=== PATIENT | female | born 1970 | race Caucasian/White ===

== ENCOUNTER → 2017-07-25 13:03 | Outpatient (CLI) | payer OTHER, SELFPAY ==
--- NOTE | 2017-07-25 13:06 | HPBI_ITS ---
MAMMOGRAPHY - BILATERAL DIAGNOSTIC REASON FOR EXAM: Female, 47 years old. Patient complains a right breast lump x1 week. History right breast cyst removed at age 39. PERTINENT HISTORY: Non-contributory. TECHNIQUE: Digital Full Field Breast examination. Mediolateral oblique (MLO) and craniocaudad (CC) views of both breasts were obtained. CAD: Full Field Digital Mammography with Computer Added Detection was performed. COMPARISON: 02/01/2016 through 01/29/2015 mammograms. FINDINGS: Breast Composition: Extremely dense Right breast lower outer quadrant rounded smooth margin incompletely seen asymmetric density is noted, marked by radiopaque triangle by the Habitat Biologist. Tomosynthesis imaging appears to confirm rounded density without associated calcifications which may represent a cyst or mass suspicious for neoplasm. Recommended right breast targeted ultrasound for further evaluation. No new architectural distortion, abnormal microcalcification cluster, dominant mass, adenopathy, skin thickening or nipple retraction is identified. Benign-appearing calcifications seen. HPBI/DIAG MAMM W/CAD, BILAT IMPRESSION: Right breast lower outer quadrant asymmetric density, marked by radiopaque marker corresponding to patient's complaint of right breast lump for one week, cannot exclude neoplasm versus cyst. Further right breast targeted ultrasonographic evaluation recommended, as described above. ASSESSMENT CATEGORY: BIRADS Category 0: Incomplete. Need additional imaging evaluation. A letter regarding these results will be sent to the patient by the facility within 30 days. FOLLOW UP RECOMMENDATION: Ultrasound Recommended. (I) Approximately 10% of breast cancers Are Not detected by mammography. A normal mammogram should not delay biopsy of a clinically suspicious abnormality. Electronically Signed: Bruce Norton, at 18:09 EDT Tel , Service support ,
--- NOTE | 2017-07-25 14:01 | US_ITS ---
STUDY: ULTRASOUND BREAST - RIGHT REASON FOR EXAM: Female, 47 years old. Right breast lump x1 week for a patient is documented by genetic technologist. History right breast cyst removed at age 39. TECHNIQUE: Axial and longitudinal images of the RIGHT breast were performed with a high resolution ultrasound transducer. COMPARISON: Right breast ultrasound 01/29/2015. Correlation mammograms 07/25/2017 through 01/29/2015. FINDINGS: RIGHT Breast: There are 2 hypoechoic lesions located in the right breast lower outer quadrant in the area of clinical concern where patient describes a lump x1 week. An oval wider than tall hyperechoic appearing simple cyst is approximately 1.9 x 2.3 x 1.6 cm in the approximate 7:30 position approximately 6 cm from the nipple which shows minimal internal color Doppler signal which may be artifact. Second adjacent lesion measures 2.0 x 3.2 x 1.2 cm and has similar benign-appearing cystic characteristics. Clock notation: 7:30 o'clock position. Distance from nipple: 6 cm. Posterior Enhancement: Both Posterior Shadowing: Neither Margins: Smooth for both Echogenicity: Anechoic for both consistent with simple cysts US/Breast Limited Unilateral IMPRESSION: Probably benign appearing cystic structures right breast 7:30 o'clock 6 cm from nipple position corresponding the patient's symptoms described above. Recommend right breast ultrasound in 6 months for short-term follow-up of probably benign findings. Benign ultrasound and mammographic results should not deter biopsy or biopsies of a palpable lesion which if present should be followed on clinical grounds and biopsy performed if clinically persistent for 3 months or increasing size to exclude neoplasm. ASSESSMENT CATEGORY: BIRADS Category 2: Benign. A letter regarding these results will be sent to the patient by the facility within 30 days. Electronically Signed: Bruce Norton, at 20:06 EDT Tel , Service support ,
== END ==
PROVIDERS: Family Provider Internal Medicine; PCP Internal Medicine; Visit Provider Obstetrics & Gynecology
DX: N63.0 Unspecified lump in unspecified breast (principal)
CPT/HCPCS: 76642; 77062; 77066; G0279

== ENCOUNTER → 2020-02-17 | Outpatient (CLI) | payer OTHER, SELFPAY ==
--- NOTE | 2020-02-17 16:24 | BI_ITS ---
MAMMOGRAPHY - BILATERAL SCREENING REASON FOR EXAM: Female, 49 years old. Routine annual screening examination. PERTINENT HISTORY: Non-contributory. TECHNIQUE: Digital bilateral breast jayne (3D mammographic acquisition) in the CC and MLO projections. 2-D mediolateral oblique (MLO) and craniocaudad (CC) views of both breasts were obtained. CAD: Full Field Digital Mammography with Computer Added Detection was performed. COMPARISON: Comparison is made with prior study dated 07/25/2017. FINDINGS: Breast Composition: The breasts are extremely dense, which lowers the sensitivity of mammography. There are no dominant masses or suspicious calcifications. Surgical clips are seen in the anterior upper slightly medial retroareolar region. The previously seen well-defined nodule in the lower outer quadrant of the right breast is not seen at this time. No other significant abnormalities are identified. BI/SCREEN MAMM (CAD) W/JAYNE BILAT IMPRESSION: Negative screening mammogram. Yearly followup mammogram recommended. (A) ASSESSMENT CATEGORY: BIRADS Category 2: Benign. A letter regarding these results will be sent to the patient by the facility within 30 days. Approximately 10% of breast cancers are not detected by mammography. A normal mammogram should not delay biopsy of a clinically suspicious abnormality. [id number] Electronically Signed: Mario Walsh, at 8:45 EDT , Service support ,
== END | disposition home or self-care (01) ==
LOC: OPBI 16:23
PROVIDERS: PCP Internal Medicine; Referring Provider Nurse Practitioner Primary Care; Visit Provider Nurse Practitioner Primary Care
DX: Z12.31 Encounter for screening mammogram for malignant neoplasm of breast (principal)
CPT/HCPCS: 77063; 77067

== ENCOUNTER → 2022-10-14 | Outpatient (CLI) | payer OTHER, SELFPAY ==
--- NOTE | 2022-10-14 16:23 | RAD_ITS ---
STUDY: X-RAY CHEST REASON FOR EXAM: Female, 52 years old. hx of latent tb TECHNIQUE: Frontal and lateral views of the chest. COMPARISON: None. FINDINGS: The lungs are clear and expanded. There is no demonstrated pleural abnormality. Normal size heart. Normal mediastinum and freida. Normal visualized pulmonary arteries. Normal visualized aortic arch and descending thoracic aorta. Normal visualized thoracic spine. Normal visualized ribs, clavicles, and shoulders. There is no demonstrated abnormality of the visualized soft tissue structures of the upper abdomen. RAD/Chest PA and Lateral IMPRESSION: Normal x-ray examination of the chest. Electronically Signed: Amari Silva MD at 21:52 EDT ,
[2022-10-14 17:54] LABS: Absolute Lymphocyte Count 2.59 X10^3/uL (0.83-4.51); Basophil# 0.05 X10^3/uL; Basophil% 0.8 % (0-1); Eosinophil# 0.12 X10^3/uL; Eosinophils% 1.9 % (0-5); Hematocrit 40.2 % (37-47); Hemoglobin 12.8 g/dL (12.0-15.0); Lymphocyte # 2.59 X10^3/ul (0.83-4.51); Lymphocyte % 41.2 % (19-41); Mean Corp Hgb Conc 31.8 g/dL (32-36); Mean Corpuscular Hgb 27.7 pg (27.0-32.0); Mean Platelet Vol. 9.1 fl (6.2-12.0); Monocyte# 0.55 X10^3/uL; Monocyte% 8.7 % (0-10); NRBC Flagged by Analyzer 0 % (0-5); Neutrophil # 2.96 X10^3/uL (2.7-7.7); Neutrophil % 47.1 % (47-70); Platelet Count 368 K/mm3 (150-450); RBC Distribution Width CV 14.2 % (11.6-14.6); RBC Distribution Width SD 45.2 fl (35.1-43.9); Red Blood Count 4.62 M/mm3 (4.2-5.4); White Blood Count 6.3 K/mm3 (4.4-11.0)
[2022-10-14 18:02] LABS: Erythrocyte Sedimentation Rate 9 mm/hr (0-30)
[2022-10-14 18:08] LABS: Vitamin B12 1782 pg/mL (211-911); Vitamin D,25 Hydroxy 54.6 ng/mL
[2022-10-14 18:20] LABS: AST(SGOT) 22 U/L (15-37); Alanine Aminotransfer ALT/SGPT 22 U/L (13-56); Albumin, Serum 3.8 g/dL (3.2-5.0); Alkaline Phosphatase 68 U/L (45-117); Anion Gap 6 (5-15); BUN 14 mg/dL (7-18); BUN/Creat Ratio 23.9 RATIO (10-20); CRP 7.09 mg/L (0.0-3.0); Calcium,Total 8.6 mg/dL (8.5-10.1); Chloride 103 mmol/L (98-107); Creatinine, Serum 0.59 mg/dL (0.55-1.02); EST Glomerular Filtration Rate 114 mL/min (>60); Est Glom Filt Rate - Afr Amer 138 mL/min (>60); Globulin 3.7 g/dL (2.2-4.2); Glucose 100 mg/dL (74-106); Potassium 3.7 mmol/L (3.5-5.1); Protein, Total 7.5 g/dL (6.4-8.2); Rheumatoid Factor < 10.0 IU/mL (<15); Sodium Level 137 mmol/L (136-145); Thyroid Stim Hormone (TSH) 1.32 uIU/mL (0.358-3.74)
[2022-10-17 13:07] LABS: ANTINUCLEAR ANTIBODIES DIRECT Positive (Negative)
== END | disposition home or self-care (01) ==
PROVIDERS: PCP Family Medicine; Referring Provider Family Medicine; Visit Provider Family Medicine
DX: M79.10 Myalgia, unspecified site (principal); Z86.15 Personal history of latent tuberculosis infection
CPT/HCPCS: 36415; 71046; 80053; 82306; 82607; 84443; 85025; 85652; 86038; 86140; 86431

== ENCOUNTER → 2022-10-26 | Outpatient (CLI) | payer OTHER, SELFPAY ==
--- NOTE | 2022-10-26 17:49 | CT_ITS ---
STUDY: CT MAXILLOFACIAL SINUSES REASON FOR EXAM: Female, 52 years old. CHRONIC SINUSITIS RADIATION DOSAGE (If Supplied By Facility): CTDIvol = ( 33.06 ) mGy, DLP = ( 796.66 ) mGycm TECHNIQUE: The patient was scanned in a multi detector CT scanner. High resolution axial imaging was performed without the administration of intravenous contrast material. Sagittal and coronal images were reconstructed. Individualized dose optimization techniques were used for this CT. COMPARISON: None. FINDINGS: FRONTAL SINUSES: Normal aeration, without mucosal inflammatory disease. ETHMOIDAL SINUSES: Mild opacification MAXILLARY SINUSES: Mucosal thickening measuring 0.4 cm on the right and 0.6 cm on the left SPHENOIDAL SINUSES: Mucosal thickening measuring 0.8 cm. There is narrowing of the ostium, infundibulum, and hiatus semilunaris on the right. There is narrowing of the ostium, infundibulum, and hiatus semilunaris on the left. There is a lori bullosa of the right middle turbinate. There are paradoxical curvature of the bilateral middle turbinates. There is hypertrophy of the bilateral inferior nasal turbinates. There is sinuous deviation of the nasal septum. There is narrowing of the bilateral nasal airways. The visualized osseous structures are normal. The visualized bilateral orbital contents are normal. CT/Sinus/Facial Bone IMPRESSION: Sinusitis with mucosal thickening of the maxillary, ethmoid, and sphenoid sinuses. Narrowing of the ostiomeatal units. Nasal septal deviation. Mucosal hypertrophy of the turbinates narrowing the nasal air passageway. Electronically Signed: Cy Hansen MD at 23:35 EDT ,
== END | disposition home or self-care (01) ==
LOC: CT 17:45
PROVIDERS: PCP Family Medicine; Referring Provider Otolaryngology; Visit Provider Otolaryngology
DX: J32.8 Other chronic sinusitis (principal)
CPT/HCPCS: 70486

== ENCOUNTER → 2023-05-26 | Outpatient (CLI) | payer OTHER, SELFPAY ==
--- OUTSIDE RECORDS SUMMARY | 2023-05-26 16:08 | XMS RPT_ITS | CCD ---
Author Name Unknown Address [address] [facility] [address] [place] [address] Organization [facility] Care Team Providers Care Wildlife Manager Name Role Phone Curtis Fofana Admitting Unavailable Curtis Fofana Attending Unavailable Anya Serrato MD Primary Care Provider Anya Serrato MD Primary Care Provider [phone] Anya Serrato MD Primary Care Provider [phone] Allergies Allergy Classification Reported Allergen(s) Allergy Type Date of Onset Reaction(s) Facility (4 sources) Adhesive agent Drug Allergy [facility] Work Phone: (14 sources) Promethazine Drug Allergy [address] [place] [address] Work Phone: (14 sources) Homeopathic Products Propensity to adverse reactions [address] [place] [address] Work Phone: (10 sources) Adhesive agent Drug Allergy [address] [place] [address] Work Phone: Medications Current Medications Medication Drug Class(es) Dates Sig (Normalized) Sig (Original) amoxicillin 875 mg oral tablet (1 source) Penicillin-class Antibacterial Start: 02-04-2022 End: 02-11-2022 take 1 tablet by mouth twice daily amoxicillin (AMOXIL) 875 mg tablet Take 1 tablet by mouth twice daily for 7 days. 14 tablet 0 02/04/2022 02/11/2022 Active Completed/Discontinued Medications Medication Drug Class(es) Dates Sig (Normalized) Sig (Original) balsalazide disodium 750 mg oral capsule (15 sources) Aminosalicylate Start: 01-14-2022 take 3 capsules by mouth three times daily balsalazide (COLAZAL) 750 mg capsule Indications: Ulcerative pancolitis without complication (HCC) Take 3 capsules by mouth three times daily. 270 capsule 11 01/14/2022 Active Problems Active Problems Problem Classification Problem Date Documented Da te Episodic/Chronic Headache; including migraine (2 sources) Migraine; Translations: [Migraine, unspecified, not intractable, without status migrainosus] Chronic Miscellaneous mental health disorders (20 sources) Chronic insomnia; Translations: [Psychophysiologic insomnia] Onset: 08-20-2014 Chronic Mood disorders (15 sources) Recurrent major depressive episodes, moderate ; Translations: [Major depressive disorder, recurrent, moderate] Onset: 12-01-2020 Chronic Nutritional deficiencies (1 source) Cobalamin deficiency; Translations: [Deficiency of other specified B group vitamins] Episodic Other circulatory disease (15 sources) Thrombotic microangiopathy; 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 Other endocrine disorders (14 sources) Disorder of anterior pituitary; Translations: [Other disorders of pituitary gland] Onset: 07-31-2008 09-29-2008 Chronic Other screening for suspected conditions (not mental disorders or infectious disease) (19 sources) Coag./bleeding tests abnormal; Translations: [Abnormal coagulation profile] 07-01-2009 Episodic Other upper respiratory infections (1 source) Acute maxillary sinusitis; Translations: [Acute maxillary sinusitis, unspecified] Episodic Regional enteritis and ulcerative colitis (15 sources) Ulcerative pancolitis; Translations: [Ulcerative (chronic) pancolitis without complications] Onset: 03-20-2015 03-20-2015 Chronic Residual codes; unclassified (14 sources) Periodic limb movement disorder; Translations: [Periodic limb movement disorder] Onset: 08-20-2014 08-20-2014 Chronic Residual codes; unclassified (1 source) Insomnia; Translations: [Insomnia, unspecified] Episodic Past or Other Problems Problem Classification Problem Date Documented Da te Episodic/Chronic Headache; including migraine (14 sources) Headache; Translations: [Headache] Onset: 09-29-2008 09-29-2008 Episodic Other connective tissue disease (14 sources) Impingement syndrome of right shoulder region; Translations: [Impingement syndrome of right shoulder] Onset: 10-28-2014 10-28-2014 Episodic Other connective tissue disease (14 sources) Impingement syndrome of left shoulder region; Translations: [Impingement syndrome of left shoulder] Onset: 10-28-2014 10-28-2014 Episodic Results Test Name Value Interpretation Reference Range Facil ity Vital Signs Date Time Vital Sign Value Performing Clinician Faisal austin 02-04-2022 11:53-0400 Body temperature 97.7 [degF] Elliott Llamas COMPLIANCE MONITOR.WOOL WASHER Work Phone: [facility] 02-04-2022 11:53-0400 Body weight 68.58 kg Elliott Llamas COMPLIANCE MONITOR.WOOL WASHER Work Phone: [facility] 02-04-2022 11:53-0400 Diastolic blood pressure 66 mm[Hg] Elliott Llamas COMPLIANCE MONITOR.WOOL WASHER Work Phone: [facility] 02-04-2022 11:53-0400 Heart rate 82 /min Elliott Llamas COMPLIANCE MONITOR.WOOL WASHER Work Phone: [facility] 02-04-2022 11:53-0400 Respiratory rate 18 /min Elliott Llamas COMPLIANCE MONITOR.WOOL WASHER Work Phone: [facility] 02-04-2022 11:53-0400 SaO2% (BldA) [Mass fraction] 95 % Elliott Llamas COMPLIANCE MONITOR.WOOL WASHER Work Phone: [facility] 02-04-2022 11:53-0400 Systolic blood pressure 116 mm[Hg] Elliott Llamas COMPLIANCE MONITOR.WOOL WASHER Work Phone: [facility] Encounters Encounter Date Encounter Type Care Provider Facility Start: 03-01-2023 ambulatory Anya Pierre Work Phone: [facility] Start: 06-06-2022 Refill Lilly Rice COMPLIANCE MONITOR .WOOL WASHER Work Phone: [facility] [place] Procedures Date Procedure Procedure Detail Performing Clinician Start: 08-21-2020 Lipid 1996 panel - S navjot or Plasma Anya Serrato MD Work Phone: Start: 02-17-2020 Mammography Vicky Booth PSYD Work Phone: Start: 10-08-2018 Colonoscopy Vicky Booth PSYD Work Phone: Plan of Treatment Date Care Activity Detail Author Start: 10-08-2028 Colonoscopy COLONOSCOPY [facility] Start: 10-08-2028 COLORECTAL CANCER SCREENING COLORECTAL CANCER SCREENING [facility] Start: 08-21-2025 Lipid 1996 panel - Serum or Plasma Lipid Screening [facility] Start: 08-21-2025 LIPID SCREEN LIPID SCREEN [facility] Start: 08-22-2023 DIABETES SCREEN DIABETES SCREEN [facility] Start: 08-22-2023 Diabetes Screening Diabetes Screening [facility] Start: 12-30-2022 Influenza vaccination [facility] Start: 12-30-2021 Influenza vaccination [facility] Start: 10-06-2021 End: 12-06-2021 CBC W Auto Differential panel - Blood CBC + DIFF Lab Routine Annual physical exam Abnormal coagulation profile Expected: 10/06/2021, Expires: 12/06/2021 [facility] Work Phone: Immunizations Immunization Date Immunization Notes Care Provider Amisha shaffer 05-04-2018 influenza, injectabl e, quadrivalent, contains preservative Vicky Booth PSYD Work Phone: [facility] 05-04-2018 influenza virus vaccine, unspecified formulation Anya Serrato MD Work Phone: [facility] 03-22-2016 influenza, injectabl e, quadrivalent, contains preservative Vicky Booth PSYD Work Phone: [facility] 01-29-2015 influenza, seasonal, injectable Vicky Booth PSYD Work Phone: [facility] 02-20-2009 influenza virus vaccine, live, attenuated, for intranasal use Vicky Booth PSYD Work Phone: [facility] Work Phone: 01-15-2007 hepatitis B vaccine, adult dosage Vicky Booth PSYD Work Phone: [facility] Work Phone: 01-15-2007 hepatitis B vaccine, unspecified formulation Anya Serrato MD Work Phone: [facility] 12-18-2006 hepatitis B vaccine, adult dosage Vicky Booth PSYD Work Phone: [facility] Work Phone: 12-18-2006 tetanus toxoid, redu swapna diphtheria toxoid, and acellular pertussis vaccine, adsorbed Vicky Booth PSYD Work Phone: [facility] Work Phone: Payers Date Payer Category Payer Unknown MMO MMO [employer] [id number] 2018-Present [phone] [address] [place] [address] PPO [id number] 2018 Unknown [id number] Unknown [id number] Social History Date Type Detail Facility Start: 05-03-2012 Tobacco smoking stat [facility] Never smoked tobacco [facility] Work Phone: Start: 01-20-2021 End: 02-04-2022 Alcohol intake Current drinker of alcohol (finding) [facility] Start: 10-19-2020 History SDOH Alcohol Frequency 2 [facility] Start: 10-19-2020 History SDOH Alcohol Std Drinks 1 [facility] Start: 10-19-2020 History SDOH Social Connections Phone 4 [facility] Start: 10-19-2020 End: 10-06-2021 History SDOH Social Connections Yazidi 3 [facility] Start: 10-19-2020 History SDOH Social Connections Living 8 [facility] Start: 10-19-2020 History SDOH Financial 5 [facility] Start: 10-19-2020 Education 12 [facility] Start: 1970 Sex Assigned At Female [facility] Start: 08-30-2021 End: 02-04-2022 Exposure to SARS-CoV-2 (event) Not sure [facility] Start: 05-03-2012 Tobacco use and exposure Smoke less tobacco non-user [facility] Start: 05-26-2022 End: 07-20-2022 History of Social function [facility] Start: 05-26-2022 End: 07-20-2022 Social connection and isolation panel [facility] In a typical week, h ow many times do you talk on the telephone with family, friends, or neighbors? Patient refused [facility] Are you now , , , , never or living with a partner? Refused [facility] How often to you hav e a drink containing alcohol? Monthly or less [facility] How many standard dr inks containing alcohol do you have on a typical day? 1 or 2 [facility] How often do you hav e 6 or more drinks on 1 occasion? Never [facility] Do you feel stress - tense, restless, nervous, or anxious, or unable to sleep at night because your mind is troubled all the time - these days [OSQ] Only a little [facility] (I/We) worried ludmila er (my/our) food would run out before (I/we) got money to buy more. DK or Refused [facility] In the past 12 month s, was there a time when you were not able to pay the mortgage or rent on time? No [facility] Start: 03-31-2021 Gender identity Identifies as female gender (finding) [facility] Clinical Notes 01-12-2012 to 03-01-2023 Telephone Encounter - Taryn Boothe LPN - 06/07/2022 8:56 AM ESTTelephone Encounter - Bárbara Spring LPN - 04/27/2022 11:00 AM ESTPatient John Booth PSYD - 07/28/2021 3:22 PM EDT Note Date & Type Note Facility 03-01-2023 Note Patient Outreach (IN TMMN) ASHLEY MEDRANO ([id number]) 1970 F Date Time Provider Department 03/01/23 ANYA SERRATO During your visit today, we recorded the following information about you: Allergies As of Date: 03/01/2023 Noted Allergy Reaction ADHESIVE 05/05/2015 2 - Rash Comments: Bandaid adhesive causes redness HAYFEVER (HOMEOPATHIC PRODUCTS) 05/17/2005 PHENERGAN (PROMETHAZINE HCL) 06/20/2005 Comments: shakes Date Reviewed: 02/04/2022 Reviewed by: Elliott Llamas APRN.WOOL WASHER - Fully Assessed Visit Diagnosis:Encounter for screening mammogram for breast cancer [Z12.31] Order(s):[facility] SCREENING [[id number]] Order #: [id number] FUTURE Prescriptions as of 03/06/2023 - folic acid-Vit B6-Vit B12 (FOLBIC) 2.5-25-2 mg tab Take 2 tablets by mouth once daily. - citalopram hydrobromide (CELEXA) 10 mg tablet Take 1 tablet by mouth once daily - balsalazide (COLAZAL) 750 mg capsule Take 3 capsules by mouth three times daily. - rizatriptan (MAXALT) 10 mg tablet Take at onset of headache; may repeat after 2hrs. Do not exceed 30mg/day (3 doses). - citalopram (CELEXA) 20 mg tablet Take 1 tablet by mouth once daily. 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] Abnormal Coagulation Profile [R79.1] Depressive disorder, not elsewhere classified [*01/12/2012 08/20/2014 Periodic limb movement disorder [G47.61] 08/20/2014 Insomnia, psychophysiological [F51.04] 08/20/2014 Impingement syndrome of right shoulder [M75.41] 10/28/2014 Impingement syndrome of left shoulder [M75.42] 10/28/2014 Quinn ulcerative colitis without complicati*03/20/2015 Moderate episode of recurrent major depressive *12/01/2020 Encounter Status:Closed by DAVON, PRODUSER on 03/06/23 [facility] 06-07-2022 Miscellaneous Notes Patient has been identified by name and date of : Yes Patient phones for refill(s): Requested Prescriptions Pending Prescriptions Disp Refills folic acid-Vit B6-Vit B12 (FOLBIC) 2.5-25-2 mg tab 180 tablet 3 Sig: Take 2 tablets by mouth once daily. Date of last office visit in primary care: 10/06/21 Please advise. Thank you. Taryn Boothe LPN documented in this encounter [facility] 04-27-2022 Miscellaneous Notes Patient has been identified by name and date of : Yes Pharmacy phones for refill(s): Requested Prescriptions Pending Prescriptions Disp Refills citalopram hydrobromide (CELEXA) 10 mg tablet [Pharmacy Med Name: Citalopram Hydrobromide 10 MG Oral Tablet] 90 tablet 0 Sig: Take 1 tablet by mouth once daily Date of last office visit in primary care: 01/20/22 Last 2 Encounter Wt Readings: Date: Wt: 02/04/2022 68.6 kg (151 lb 3.2 oz) 01/20/2021 66.2 kg (146 lb) Previous labs/tests for medication: Not applicable Thank you. Bárbara Spring LPN documented in this encounter [facility] 03-09-2022 Note Patient Outreach (IN TMMN) ASHLEY MEDRANO ([id number]) 1970 F Date Time Provider Department 03/09/22 ANYA SERRATO During your visit today, we recorded the following information about you: Allergies As of Date: 03/09/2022 Noted Allergy Reaction ADHESIVE 05/05/2015 2 - Rash Comments: Bandaid adhesive causes redness HAYFEVER (HOMEOPATHIC PRODUCTS) 05/17/2005 PHENERGAN (PROMETHAZINE HCL) 06/20/2005 Comments: shakes Date Reviewed: 02/04/2022 Reviewed by: Elliott Llamas APRN.WOOL WASHER - Fully Assessed Visit Diagnosis:Encounter for screening mammogram for breast cancer [Z12.31] Order(s):[facility] SCREENING [[id number]] Order #: [id number] FUTURE Prescriptions as of 03/14/2022 - balsalazide (COLAZAL) 750 mg capsule Take 3 capsules by mouth three times daily. - rizatriptan (MAXALT) 10 mg tablet Take at onset of headache; may repeat after 2hrs. Do not exceed 30mg/day (3 doses). - eszopiclone (LUNESTA) 2 mg Take 1 tablet by mouth at bedtime as needed (insomnia) for up to 90 days. - citalopram (CELEXA) 20 mg tablet Take 1 tablet by mouth once daily. - citalopram hydrobromide (CELEXA) 10 mg tablet Take 1 tablet by mouth once daily. - folic acid-Vit B6-Vit B12 (FOLBIC) 2.5-25-2 mg tab Take 2 tablets by mouth once daily. 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] Abnormal Coagulation Profile [R79.1] Depressive disorder, not elsewhere classified [*01/12/2012 08/20/2014 Periodic limb movement disorder [G47.61] 08/20/2014 Insomnia, psychophysiological [F51.04] 08/20/2014 Impingement syndrome of right shoulder [M75.41] 10/28/2014 Impingement syndrome of left shoulder [M75.42] 10/28/2014 Quinn ulcerative colitis without complicati*03/20/2015 Moderate episode of recurrent major depressive *12/01/2020 Encounter Status:Closed by DAVON, SAHILUSER on 03/14/22 [facility] 02-04-2022 Instructions Elliott Llamas APRN.WOOL WASHER - 02/04/2022 12:28 PM EDT [facility] PATIENT INFO ACUTE SINUSITIS OVERVIEW Rhinosinusitis, or more commonly sinusitis, is the medical term for inflammation (swelling) of the lining of the sinuses and nose. The sinuses are the hollow areas within the facial bones that are connected to the nasal openings. The sinuses are lined with mucous membranes, similar to the inside of the nose. There are two main types of sinusitis: acute and chronic. Acute sinusitis is inflammation that lasts for less than four weeks while chronic sinusitis lasts for more than 12 weeks. Acute sinusitis is common, affecting approximately one million people per year in the [place]. ACUTE SINUSITIS CAUSES The most common cause of acute sinusitis is a viral infection associated with the common cold. Bacterial sinusitis occurs much less commonly, in only 0.5 to 2 percent of cases, usually as a complication of viral sinusitis. Because antibiotics are effective only against bacterial, and not viral, infections, most people do not need antibiotics for acute sinusitis. ACUTE SINUSITIS SYMPTOMS Symptoms of acute sinusitis include: Nasal congestion or blockage Thick, yellow to green discharge from the nose Pain in the teeth Pain or pressure in the face that is worse when bending forwards Other acute sinusitis symptoms can include fever (temperature greater than 100.4 F or 38 C), fatigue, cough, difficulty or inability to smell, ear pressure or fullness, headache, and bad breath. In most cases, these symptoms develop over the course of one day and begin to improve within seven to 10 days. DO I NEED TO BE EXAMINED? It is difficult to know if you have a viral or bacterial sinus infection initially. However, most people with a viral infection improve without treatment within seven to 10 days after symptoms begin. Bacterial sinusitis also sometimes improves without treatment, although it can also worsen and require treatment. If one or more of the following bothersome symptoms last more than seven days, an examination by a healthcare provider is recommended: Thick, yellow to green discharge from the nose Face or tooth pain, especially if it is only on one side Tenderness over the maxillary sinuses (located on the left and right side of the nose, inside the cheekbones) Symptoms that initially improve and then worsen When to seek immediate help -- If you have one or more of the following symptoms, you should seek medical attention immediately (even if symptoms have been present for less than seven days): High fever (>102.5 F or 39.2 C) Sudden, severe pain in the face or head Double vision or difficulty seeing Confusion or difficulty thinking clearly Swelling or redness around one or both eyes Stiff neck, shortness of breath ACUTE SINUSITIS TREATMENT Initial treatment of a sinus infection aims to relieve symptoms since almost everyone will improve within the first seven to 10 days. Experts recommend avoiding antibiotics during this time unless there is clear evidence of a severe bacterial infection. Initial treatment Pain relief -- Non-prescription pain medications, such as acetaminophen (eg, Tylenol ) or ibuprofen (eg, Motrin , Advil ) are recommended for pain. Nasal irrigation and saline sprays -- Rinsing the nose with a salt-water (saline) solution is called nasal irrigation or nasal lavage. Saline is also available in a standard nasal spray, although this is not as effective as using larger amounts of water in an irrigation. Nasal irrigation is particularly useful for treating drainage down the back of the throat, sneezing, nasal dryness, and congestion. The treatment helps by rinsing out allergens and irritants from the nose. Saline rinses also clean the nasal lining and can be used before applying sprays containing medications, to get a better effect from the medication. Nasal lavage with warmed saline can be performed as needed, once per day, or twice daily for increased symptoms. Nasal lavage carries few risks when performed correctly. Saline nasal sprays and irrigation kits can be purchased [id number]. Saline mixes can also be purchased or patients can make their own solution. A variety of devices, including bulb syringes, Neti pots, and bottle sprayers, may be used to perform nasal lavage; instructions for nasal lavage are provided in the table. At least 200 mL (about 3/4 cup) of fluid is recommended for each nostril. Nasal decongestants -- Nasal decongestant sprays, including oxymetazoline (Afrin ) and phenylephrine (Pierce-synephrine ) can be used to temporarily treat congestion. However, these sprays should not be used for more than two to three days due to the risk of rebound congestion (when the nose is congested constantly unless the medication is used repeatedly). Other treatments -- Other treatments for congestion, such as oral antihistamines (such as diphenhydramine/Benadryl ) or zinc supplements are not proven to improve symptoms of sinusitis and can have unwanted side effects. Medications to thin secretions (such as guaifenesin) may help to clear mucus. Secondline treatment -- If symptoms have not improved in seven to ten days, you should arrange for medical evaluation. You may need further treatment. Nasal glucocorticoids -- Nasal glucocorticoids (steroids delivered by a nasal spray) can help to reduce swelling inside the nose, usually within two to three days. These drugs have few side effects and dramatically relieve symptoms in most people. There are a number of nasal glucocorticoids available by prescription. These drugs are all effective, but differ in how frequently they must be used and how much they cost. You may need to use a nasal decongestant for a few days before starting a nasal glucocorticoid to reduce nasal swelling; this will allow the nasal glucocorticoid to reach more areas of the nasal passages Do I need an antibiotic? -- If bothersome symptoms of sinusitis persist for 10 or more days, it is possible that you have bacterial sinusitis. The need for antibiotics depends upon the severity of your symptoms. Mild symptoms -- There are two possible treatment options if you have mild sinusitis symptoms: treat with antibiotics or continue to watch and wait for one week. Watching and waiting is a reasonable option because up to 75 percent of people with bacterial sinusitis improve within one month without antibiotics. During the watch and wait period, treatments to improve symptoms are recommended. If symptoms worsen or do not improve after watching and waiting, treatment with an antibiotic is usually recommended. Treatments to relieve symptoms are recommended while using antibiotics. Moderate or severe symptoms -- Most healthcare providers will prescribe an antibiotic for moderate to severe symptoms (temperature >38.3 C or 101 F and/or severe pain that interferes with usual activities). Treatments to relieve symptoms are also recommended during antibiotic treatment. One of the least expensive and most effective antibiotics for sinusitis is amoxicillin. An alternate antibiotic will be prescribed if you are allergic to penicillin. Regardless of which antibiotic is prescribed, it is important to follow the dosing instructions carefully and to finish the entire course of treatment. Taking the medication less often than prescribed or stopping the medication early can lead to complications, such as a recurrent infection. What if I do not improve with treatment? -- If you do not improve or worsen after a course of antibiotics, you should be re-examined. In some cases, symptoms of sinusitis improve but then recur. This is usually because the infection was not completely eliminated by the antibiotic. An alternate antibiotic, extended antibiotic treatment, and/or further testing may be recommended, depending upon your individual situation. documented in this encounter [facility] 02-04-2022 History of Present illness Narrative Subjective HPI Nontoxic-appearing female presents urgent care chief plaint sinus pressure ear pain. Duration of symptom 8 days. Associated symptoms increasing sinus pressure left ear pain. States she was around individuals with similar signs symptoms over the weekend last week. Denies any OTC medication use today. Has been taking Aleve. This is helped some. History of sinus infections this feels similar. Denies any fevers productive cough chest pain shortness of breath pleuritic pain hemoptysis nausea vomiting abdominal pain change in bowel or bladder meds. Past medical history prescription medication use allergies reviewed. 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 Dr De La Vega for chronic pain ALLERGIES Adhesive, Hayfever [Homeopathic Products], and Phenergan [Promethazine Hcl] MEDICATIONS balsalazide (COLAZAL) 750 mg capsule Take 3 capsules by mouth three times daily. rizatriptan (MAXALT) 10 mg tablet Take at onset of headache; may repeat after 2hrs. Do not exceed 30mg/day (3 doses). eszopiclone (LUNESTA) 2 mg Take 1 tablet by mouth at bedtime as needed (insomnia) for up to 90 days. citalopram (CELEXA) 20 mg tablet Take 1 tablet by mouth once daily. citalopram hydrobromide (CELEXA) 10 mg tablet Take 1 tablet by mouth once daily. folic acid-Vit B6-Vit B12 (FOLBIC) 2.5-25-2 mg tab Take 2 tablets by mouth once daily. FAMILY HISTORY Problem Relation Age of Onset Allergies Mother Anesthesia Mother Lipids Mother High Cholesterol Allergies Father Cancer Father Skin Allergies Sister Allergies Brother Anesthesia Sister Heart Paternal Grandmother Heart Paternal Grandfather Hypertension Paternal Grandfather Social History Tobacco Use Smoking status: Never Smokeless tobacco: Never Substance Use Topics Alcohol use: Yes Comment: Rarely Drug use: No BP 116/66 Pulse 82 Temp 36.5 C (97.7 F) Resp 18 Wt 68.6 kg (151 lb 3.2 oz) LMP 06/24/2008 SpO2 95% BMI 26.78 kg/m Review of Systems Constitutional: Negative for chills, fever and malaise/fatigue. HENT: Positive for congestion, ear pain and sinus pain. Negative for ear discharge and sore throat. Eyes: Negative for blurred vision, pain, discharge and redness. Respiratory: Negative for cough, hemoptysis, sputum production, shortness of breath, wheezing and stridor. Cardiovascular: Negative for chest pain. Gastrointestinal: Negative for abdominal pain, diarrhea, nausea and vomiting. Musculoskeletal: Negative for myalgias. Skin: Negative for itching and rash. Neurological: Negative for dizziness and headaches. Objective Physical Exam Constitutional: General: She is not in acute distress. Appearance: She is not diaphoretic. HENT: Head: Normocephalic. Nose: Congestion present. Right Sinus: Maxillary sinus tenderness present. Left Sinus: Maxillary sinus tenderness present. Mouth/Throat: Mouth: Mucous membranes are moist. Pharynx: Oropharynx is clear. No oropharyngeal exudate or posterior oropharyngeal erythema. Eyes: Conjunctiva/sclera: Conjunctivae normal. Pupils: Pupils are equal, round, and reactive to light. Cardiovascular: Rate and Rhythm: Normal rate and regular rhythm. Heart sounds: Normal heart sounds. Pulmonary: Effort: Pulmonary effort is normal. No tachypnea, accessory muscle usage or respiratory distress. Breath sounds: Normal breath sounds. No stridor. No wheezing, rhonchi or rales. Abdominal: Palpations: Abdomen is soft. Tenderness: There is no abdominal tenderness. Musculoskeletal: Cervical back: Normal range of motion and neck supple. No rigidity or tenderness. Lymphadenopathy: Cervical: No cervical adenopathy. Skin: General: Skin is warm and dry. Neurological: Mental Status: She is alert and oriented to person, place, and time. ASSESSMENT/PLAN: 1. Acute maxillary sinusitis, 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 - ICD9: 461.0, ICD10: J01.00 Diagnosis maxillary sinusitis will be placed on amoxicillin. Supportive therapies discussed. Patient was educated on supportive therapies. Patient will follow up with primary care provider as needed. Patient was instructed to immediately proceed to emergency room for any new, worsening, or symptoms lasting longer than anticipated. The patient's clinical presentation is otherwise unremarkable at this time. Based on exam and clinical finding, the patient is stable for discharge. Plan of care was discussed with patient. Patient verbalizes understanding and agrees to plan of care. This note was generated using [employer] online travellers [employer] software. It may contain errors in wording, punctuation, or spelling. Elliott Llamas APRN.TUTU documented in this encounter [facility] 01-13-2022 Miscellaneous Notes Patient has been identified by name and date of : Yes Patient phones for refill(s): Requested Prescriptions Pending Prescriptions Disp Refills balsalazide (COLAZAL) 750 mg capsule 270 capsule 0 Sig: Take 3 capsules by mouth three times daily. Date of last office visit in primary care: 10/06/2021 No future appt scheduled. Last 2 Encounter Wt Readings: Date: Wt: 01/20/2021 66.2 kg (146 lb) 12/01/2020 65.8 kg (145 lb) Previous labs/tests for medication: Not applicable Please advise. Thank you. Jana Jensen LPN documented in this encounter [facility] 12-30-2021 Miscellaneous Notes Patient has been identified by name and date of : Yes Patient phones for refill(s): Requested Prescriptions Pending Prescriptions Disp Refills rizatriptan (MAXALT) 10 mg tablet 20 tablet 1 Sig: Take at onset of headache; may repeat after 2hrs. Do not exceed 30mg/day (3 doses). Date of last office visit in primary care: 10/06/21 Please advise. Thank you. Taryn Boothe LPN documented in this encounter [facility] 12-10-2021 Miscellaneous Notes Patient phones requesting refills as follows: Requested Prescriptions Pending Prescriptions Disp Refills rizatriptan (MAXALT) 10 mg tablet 20 tablet 1 Sig: Take at onset of headache; may repeat after 2hrs. Do not exceed 30mg/day (3 doses). Please review and advise. Rosa Saldana LPN documented in this encounter [facility] 10-06-2021 History of Present illness Narrative This Team Access Model visit is a virtual encounter. It required patient-provider interaction for the medical decision making as documented below. Patient agrees to the visit: Yes Patient Location: [place] CC: Patient presents with: Sleep Problem NETO Medrano is a 51 year old female who is contacted today for a virtual visit. This is an established patient of Dr. Anya Serrato MD. NETO Medrano is a 51 year old female who presents today for insomnia. Is working with Dr. Luis, for insomnia and is hoping to try and wean off lunesta in the next 2 months. Is able to sleep regularly with lunesta and gets an average of 7-8 hours of sleep and feels rested in the morning. Also concerned, she was on folbic for homocysteine levels and was switched to generic west tab by pharmacy because it was cheaper. Wanted to know if that was ok. Reviewed doses for both with patient and found the dosing to be the same. 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 Was on anticlotting agents since having a hysterectomy 13 years ago, and not since. Denies any chest pain, shortness of breath, tenderness, or any other concerns, just wants to know what labs if any she should have done. REVIEW OF SYSTEMS General: no fevers, no chills, no night sweats, no recurrent infections, no change in appetite, no change in energy and no significant changes in weight Respiratory: no cough, no wheezing, no shortness of breath, no hemoptysis Cardiovascular: no chest pain, no chest pressure, no palpitations and no swelling Neurologic: No headache, weakness, numbness, tingling, dizziness, syncope. 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 Dr De La Vega for chronic pain ALLERGIES Adhesive, Hayfever [Homeopathic Products], and Phenergan [Promethazine Hcl] MEDICATIONS eszopiclone (LUNESTA) 2 mg Take 1 tablet by mouth at bedtime as needed (insomnia) for up to 90 days. balsalazide (COLAZAL) 750 mg capsule Take 3 capsules by mouth three times daily. citalopram (CELEXA) 20 mg tablet Take 1 tablet by mouth once daily. citalopram hydrobromide (CELEXA) 10 mg tablet Take 1 tablet by mouth once daily. rizatriptan (MAXALT) 10 mg tablet Take at onset of headache; may repeat after 2hrs. Do not exceed 30mg/day (3 doses). folic acid-Vit B6-Vit B12 (FOLBIC) 2.5-25-2 mg tab Take 2 tablets by mouth once daily. FAMILY HISTORY Problem Relation Age of Onset Allergies Mother Anesthesia Mother Lipids Mother High Cholesterol Allergies Father Cancer Father Skin Allergies Sister Allergies Brother Anesthesia Sister Heart Paternal Grandmother Heart Paternal Grandfather Hypertension Paternal Grandfather Social History Tobacco Use Smoking status: Never Smoker Smokeless tobacco: Never Used Substance Use Topics Alcohol use: Yes Comment: Rarely Drug use: No EXAM: Virtual visit completed using video, limited exam completed. GENERAL: alert and appropriate, in no distress, well-hydrated, well nourished and happy, smiling, interactive EYES: no injection and visual acuity is grossly normal RESPIRATORY: breathing non-labored CHEST: equal chest rise with normal respiratory effort NEUROLOGIC: no obvious deficit DATA REVIEWED: Most recent labs COVID-19 VACCINE(1) Never done HEPATITIS C SCREENING Never done DTAP,TDAP,TD(2 - Td or Tdap) due on 12/18/2016 SHINGRIX VACCINE(1 of 2) Never done MAMMOGRAM due on 02/16/2021 INFLUENZA(Season Ended) due on 12/30/2021 DIABETES SCREEN due on 08/22/2023 LIPID SCREEN due on 08/21/2025 COLORECTAL CANCER SCREENING due on 10/08/2028 HIV SCREENING Completed PAP TESTING Discontinued HPV TESTING Discontinued ASSESSMENT/PLAN: 1. Insomnia, unspecified type - ICD9: 780.52, ICD10: G47.00 (primary diagnosis) - will continue lunesta at this time PDMP website checked and validated . All prescriptions have been APPROPRIATELY filled. No suspicious activity was identified. 10/06/2021 by Lilly Rice APRN.WOOL WASHER 2. Abnormal coagulation profile - ICD9: 790.92, ICD10: R79.1 - COMP METABOLIC PANEL - CBC + DIFF - VITAMIN B12 BLOOD 3. Vitamin B12 deficiency - ICD9: 266.2, ICD10: E53.8 - VITAMIN B12 BLOOD 4. Lipid screening - ICD9: V77.91, ICD10: Z13.220 - LIPID PANEL BASIC 5. Annual physical exam - ICD9: V70.0, ICD10: Z00.00 - needs to schedule in office annual exam - CBC + DIFF - COMP METABOLIC PANEL Prescription instructions reviewed with patient as applicable. Potential red flag symptoms discussed with the patient. Reviewed appropriate action plan to take if red flag symptoms occur. Patient agreeable to treatment plan. During this patient visit I have spent approximately 25 minutes in counseling regarding treatment options, medications and coordinating care. Lilly Rice APRN.CNP documented in this encounter [facility] 09-10-2021 Miscellaneous Notes PDMP website checked and validated. All prescriptions have been APPROPRIATELY filled. No suspicious activity was identified. 09/10/2021 by Lilly Rice APRN.CNP Patient reports she has 1 lunesta pill left for tonight. Reports she was not aware she needed an appt with pcp until today. Reports she is seeing the sleep psychologist, who wants her to stay on lunesta for now. Scheduled appt for 1st available on 10-01-21. Pended short supply. Please advise patient. documented in this encounter [facility] 07-28-2021 History of Present illness Narrative [facility] 28[facility]-I [facility] 3:30 4:45 Provider: Vicky Booth PsyD Due to the [facility] and [facility] and the need for ongoing mental health services, the following visit was completed virtually to reduce the risk of COVID-19 exposure. Consent related to virtual visits was provided verbally after information was sent via [employer] or read to patient if [employer] not available. First Follow-up CBT-I Session Content: Sleep Education, Sleep Hygiene, Stimulus Control Introduced the purpose of the class. Began the class discussing the purpose of sleep, sleep architecture, and expectations of sleep as we age. Provided education about two process model and how this related to behavioral changes that will be recommended. Discussed behavioral techniques for insomnia including stimulus control and sleep hygiene. Briefly discussed sleep restriction and provided specific recommendations to patients that sent sleep diaries prior to session. Reviewed important guidelines of maintaining same wake time every morning and avoiding daytime naps in order for this strategy to be effective. Patients were allowed time for question and answer at the end of the session. Pt was an active participant in the session. Her camera was off during session so unable to discern understanding of information. Insomnia Severity Index 07/28/2021 Score 27 PHQ-9 07/09/2021 Score 6 (0-4) minimal depression, (5-9) mild depression, (10-14) moderate depression, (15-19) moderately severe depression, (20-27) severe depression Assessment: Chronic Insomnia Depressive disorder, unspecified Plan: 1) Follow-up with your treating behavioral sleep medicine psychologist. 2) Follow recommendations for sleep hygiene and stimulus control. 3) Continue to fill out sleep diaries Vicky Booth PsyD Staff Psychologist Behavioral Sleep Medicine [facility] documented in this encounter [facility] 07-09-2021 Note HNO ID: [id number] Author: Vinita Luis, PhD Service: ? Author Type: Psychologist Type: Progress Notes Filed: 07/09/2021 12:04 PM Note Text: Behavioral Sleep Medicine Consult Vinita Luis, Ph.D., [facility] -- Psychologist ([place] License [id number]) Due to the federal emergency declaration and the need for ongoing mental health services, the following visit was completed virtually and informed consent obtained orally to reduce the risk of COVID-19 exposure. Oral consent to services related to virtual visits was obtained after information was sent via [employer] or read to patient if [employer] not available Contact Method: Zoom Patient Confirmed [address]: [address] [place] [address] [place] [address] Patient Confirmed Telephone #: [phone] Time: 50 min Patient was seen for an initial evaluation. All information is from patient report and review of medical record except when noted. This evaluation is NOT intended for forensic, disability or child custody purposes. Informed consent was discussed and signed by the patient. PRESENT: Fortunato Medrano is a 51 year old year old female who presents for a BS evaluation for insomnia, referred by [facility] Sleep Disorders Provider - Goldie Westfall APRN, CNP HPI: Ms. Medrano reported symptoms consistent with sleep maintenance insomnia for at least 10 years. ? Described feeling very high alert, hyperaroused when children were young. [place] like a single mother when still , took care of all of their needs ? Previously took benadryl for sleep; tried Ambien last summer and felt it exacerbated depression. Has been taking Lunesta for several years. She reported it leaves a bitter taste in her mouth. ? She feels very sleepy during the day; she could nap and sleep very well during the day ? Current snores; they sleep apart Goals for treatment: feels rested when she wakes, have a productive day; discontinue Lunesta Ms. Medrano has not been previously evaluated and treated by Behavioral Sleep Medicine at the [facility]. 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 - balsalazide (COLAZAL) 750 mg capsule Take 3 capsules by mouth three times daily. - citalopram (CELEXA) 20 mg tablet Take 1 tablet by mouth once daily. - citalopram hydrobromide (CELEXA) 10 mg tablet Take 1 tablet by mouth once daily. - rizatriptan (MAXALT) 10 mg tablet Take at onset of headache; may repeat after 2hrs. Do not exceed 30mg/day (3 doses). - folic acid-Vit B6-Vit B12 (FOLBIC) 2.5-25-2 mg tab Take 2 tablets by mouth once daily. No current facility-administered medications for this visit. What is the most distressing/disturbing about your sleep patterns? is characterized by difficulty staying asleep Estimated average total sleep time per night? 6-7 hrs HISTORY OF SLEEP DIFFICULTIES When did the problem start? 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 --takes Lunesta right when she gets in bed Time to Bed: 10 PM Time of Lights Out: TV on in bed for 30-45 min until she feels sleepy Average time to fall asleep: 30-45 min What do you do when you can't fall asleep? None Pre-sleep mental activity (worry, focused on problems, fear of insufficient sleep noises in the environment)? Yes - difficulty turning her mind off Physical tension? no Conditioned arousal? Yes Middle of the Night: Number of awakenings after sleep onset: multiple Total time awake after sleep onset: varied What happens when awake in middle of the night? (thoughts/behaviors) starts thinking about (more content not included)... [facility] documented as of this encounter (statuses as of 07/29/2021) [facility] History of Past illness Narrative* Problem Noted Date Resolved Date Depressive disorder, not elsewhere classified 08/20/2014 Insomnia, unspecified 09/29/2008 03/20/2015 Overview: Chronic Ulcerative colitis 08/17/2005 03/20/2015 THROMBOSED HEMORRHOID 05/17/2005 07/01/2009 documented as of this encounter (statuses as of 09/09/2021) [facility] History of Past illness Narrative* Problem Noted Date Resolved Date Depressive disorder, not elsewhere classified 08/20/2014 Insomnia, unspecified 09/29/2008 03/20/2015 Overview: Chronic Ulcerative colitis 08/17/2005 03/20/2015 THROMBOSED HEMORRHOID 05/17/2005 07/01/2009 documented as of this encounter (statuses as of 09/10/2021) [facility] History of Past illness Narrative* Problem Noted Date Resolved Date Depressive disorder, not elsewhere classified 08/20/2014 Insomnia, unspecified 09/29/2008 03/20/2015 Overview: Chronic Ulcerative colitis 08/17/2005 03/20/2015 THROMBOSED HEMORRHOID 05/17/2005 07/01/2009 documented as of this encounter (statuses as of 10/06/2021) [facility] History of Past illness Narrative* Problem Noted Date Resolved Date Depressive disorder, not elsewhere classified 08/20/2014 Insomnia, unspecified 09/29/2008 03/20/2015 Overview: Chronic Ulcerative colitis 08/17/2005 03/20/2015 THROMBOSED HEMORRHOID 05/17/2005 07/01/2009 documented as of this encounter (statuses as of 12/10/2021) [facility] History of Past illness Narrative* Problem Noted Date Resolved Date Depressive disorder, not elsewhere classified 08/20/2014 Insomnia, unspecified 09/29/2008 03/20/2015 Overview: Chronic Ulcerative colitis 08/17/2005 03/20/2015 THROMBOSED HEMORRHOID 05/17/2005 07/01/2009 documented as of this encounter (statuses as of 12/30/2021) [facility] History of Past illness Narrative* Problem Noted Date Resolved Date Depressive disorder, not elsewhere classified 08/20/2014 Insomnia, unspecified 09/29/2008 03/20/2015 Overview: Chronic Ulcerative colitis 08/17/2005 03/20/2015 THROMBOSED HEMORRHOID 05/17/2005 07/01/2009 documented as of this encounter (statuses as of 12/30/2021) [facility] History of Past illness Narrative* Problem Noted Date Resolved Date Depressive disorder, not elsewhere classified 08/20/2014 Insomnia, unspecified 09/29/2008 03/20/2015 Overview: Chronic Ulcerative colitis 08/17/2005 03/20/2015 THROMBOSED HEMORRHOID 05/17/2005 07/01/2009 documented as of this encounter (statuses as of 01/05/2022) [facility] of Past illness Narrative* Problem Noted Date Resolved Date Depressive disorder, not elsewhere classified 08/20/2014 Insomnia, unspecified 09/29/2008 03/20/2015 Overview: Chronic Ulcerative colitis 08/17/2005 03/20/2015 THROMBOSED HEMORRHOID 05/17/2005 07/01/2009 documented as of this encounter (statuses as of 01/14/2022) [facility] of Past illness Narrative* Problem Noted Date Resolved Date Depressive disorder, not elsewhere classified 08/20/2014 Insomnia, unspecified 09/29/2008 03/20/2015 Overview: Chronic Ulcerative colitis 08/17/2005 03/20/2015 THROMBOSED HEMORRHOID 05/17/2005 07/01/2009 documented as of this encounter (statuses as of 02/04/2022) [facility] of Past illness Narrative* Problem Noted Date Resolved Date Depressive disorder, not elsewhere classified 08/20/2014 Insomnia, unspecified 09/29/2008 03/20/2015 Overview: Chronic Ulcerative colitis 08/17/2005 03/20/2015 THROMBOSED HEMORRHOID 05/17/2005 07/01/2009 documented as of this encounter (statuses as of 03/14/2022) [facility] of Past illness Narrative* Problem Noted Date Resolved Date Depressive disorder, not elsewhere classified 08/20/2014 Insomnia, unspecified 09/29/2008 03/20/2015 Overview: Chronic Ulcerative colitis 08/17/2005 03/20/2015 THROMBOSED HEMORRHOID 05/17/2005 07/01/2009 documented as of this encounter (statuses as of 05/03/2022) [facility] History of Past illness Narrative* Problem Noted Date Resolved Date Depressive disorder, not elsewhere classified 08/20/2014 Insomnia, unspecified 09/29/2008 03/20/2015 Overview: Chronic Ulcerative colitis 08/17/2005 03/20/2015 THROMBOSED HEMORRHOID 05/17/2005 07/01/2009 documented as of this encounter (statuses as of 06/08/2022) [facility] History of Past illness Narrative* Problem Noted Date Diagnosed Date Resolved Date Depressive disorder, not elsewhere classified 01/12/20 12 08/20/2014 Insomnia, unspecified 09/29/20082014 Overview: Chronic Ulcerative colitis 08/17/2005 5 THROMBOSED HEMORRHOID 05/17/20052009 documented as of this encounter (statuses as of 03/07/2023) [facility] Diagnosis Moderate episode of recurrent major depressive disorder (HCC)- Primary Chronic insomnia Insomnia, unspecified [facility] Diagnosis Primary insomnia Persistent disorder of initiating or maintaining sleep [facility] Diagnosis Primary insomnia Persistent disorder of initiating or maintaining sleep [facility]* Diagnosis Insomnia, unspecified type- Primary Abnormal coagulation profile Vitamin B12 deficiency Other B-complex deficiencies Lipid screening Screening for lipoid disorders Annual physical exam Routine general medical examination at a health care facility Primary insomnia Persistent disorder of initiating or maintaining sleep [facility] Diagnosis Migraine without status migrainosus, not intractable, unspecified migraine type [facility] Diagnosis Primary insomnia- Primary Persistent disorder of initiating or maintaining sleep [facility] Diagnosis Primary insomnia Persistent disorder of initiating or maintaining sleep [facility]* Diagnosis Ulcerative pancolitis without complication (HCC) documented [facility]* Diagnosis Acute maxillary sinusitis, 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- Primary [facility]* Diagnosis Encounter for screening mammogram for breast cancer [facility] Diagnosis Thrombotic microangiopathy (HCC) Thrombotic microangiopathy Abnormal coagulation profile [facility] Diagnosis Encounter for screening mammogram for breast cancer documented in this encounter [facility] for referral (narrative)* Diagnostic Procedure Only (Routine) - Pending Review Specialty Diagnoses / Procedures Referred By Dana keyes Referred To Contact [facility] Diagnoses Encounter for screening mammogram for breast cancer Procedures MICHAEL SCREENING SCREENING MAMMOGRAPHY BI 2-VIEW BREAST INC Anya Erwin MD [address] [place] [address] [facility] [address] [place] [address] Referral ID Status Reason Start Date Expiration Date Visits Requested Visits Authorized [id number] Pending Review Auto-Generat ed Referral 03/09/2022 04/08/2023 [facility] Diagnostic Procedure Only (Routine) - Pending Review Specialty Diagnoses / Procedures Referred By Dana keyes Referred To Contact [facility] Diagnoses Encounter for screening mammogram for breast cancer Procedures MICHAEL SCREENING SCREENING MAMMOGRAPHY BI 2-VIEW BREAST INC Anya Erwin MD [address] [place] [address] [facility] [address] [place] [address] Referral ID Status Reason Start Date Expiration Date Visits Requested Visits Authorized [id number] Pending Review Auto-Generat ed Referral 03/01/2023 03/30/2024 1 1 [facility] Summary Purpose Family History No Family History Records FoundNo Family History Records FoundNo Family History Records Found Advance Directives Documents on File Type Date Recorded Patient Administrative Program Specialist Expl anation Advance Directive(s) 10/08/2018 10:34 AM Advance Directive(s) 09/14/2018 10:45 AM Procedure Findings Note [place] [id number] [place] [address] NAME BRANDAN TEIXEIRA [facility] [id number] 1970 DATE 06/15/2018 OPERATIVE REPORT / PROCEDURE NOTE SURGEON CURTIS FOFANA DO PREOPERATIVE DIAGNOSIS Bilateral breast ptosis grade 2. POSTOPERATIVE DIAGNOSIS Bilateral breast ptosis grade with fibrocystic breast disease with multiple breast cyst. PROCEDURE PERFORMED Bilateral keyhole mastopexy. ANESTHESIA General laryngeal mask. ESTIMATED BLOOD LOSS Approximately 100 mL. SPONGE AND NEEDLE COUNT Correct. INDICATIONS FOR PROCEDURE This is a 48-year-old white female with history of breast ptosis. She was brought in under elective conditions for bilateral keyhole mastopexy. DESCRIPTION OF PROCEDURE After receiving informed consent, the patient was taken to the operating room, she was laid in supine position. The area of the chest and breasts were prepped and draped using Betadine and sterile linens. We proceeded then to infiltrate 1% Xylocaine as well (more content not included)... Additional Source Comments INFORMATION SOURCE (unrecogn ized section and content) DATE CREATED AUTHOR AUTHOR'S ORGANIZ ATION 07/11/2021 [facility] DATE CREATED AUTHOR AUTHOR'S ORGANIZ ATION 03/06/2023 [facility] Source Comments (unrecognize d section and content) In the event this informatio n is protected by the Federal Confidentiality of Alcohol and Drug Abuse Patient Records regulations: The Federal rules restrict any use of the information to criminally investigate or prosecute any alcohol or drug abuse patient.[facility] the event this information is protected by the Federal Confidentiality of Alcohol and Drug Abuse Patient Records regulations: The Federal rules restrict any use of the information to criminally investigate or prosecute any alcohol or drug abuse patient.[facility] the event this information is protected by the Federal Confidentiality of Alcohol and Drug Abuse Patient Records regulations: The Federal rules restrict any use of the information to criminally investigate or prosecute any alcohol or drug abuse patient.[facility] the event this information is protected by the Federal Confidentiality of Alcohol and Drug Abuse Patient Records regulations: The Federal rules restrict any use of the information to criminally investigate or prosecute any alcohol or drug abuse patient.[facility] the event this information is protected by the Federal Confidentiality of Alcohol and Drug Abuse Patient Records regulations: The Federal rules restrict any use of the information to criminally investigate or prosecute any alcohol or drug abuse patient.[facility] the event this information is protected by the Federal Confidentiality of Alcohol and Drug Abuse Patient Records regulations: The Federal rules restrict any use of the information to criminally investigate or prosecute any alcohol or drug abuse patient.[facility] the event this information is protected by the Federal Confidentiality of Alcohol and Drug Abuse Patient Records regulations: The Federal rules restrict any use of the information to criminally investigate or prosecute any alcohol or drug abuse patient.[facility] the event this information is protected by the Federal Confidentiality of Alcohol and Drug Abuse Patient Records regulations: The Federal rules restrict any use of the information to criminally investigate or prosecute any alcohol or drug abuse patient.[facility] the event this information is protected by the Federal Confidentiality of Alcohol and Drug Abuse Patient Records regulations: The Federal rules restrict any use of the information to criminally investigate or prosecute any alcohol or drug abuse patient.[facility] Hospital[facility] the event this information is protected by the Federal Confidentiality of Alcohol and Drug Abuse Patient Records regulations: The Federal rules restrict any use of the information to criminally investigate or prosecute any alcohol or drug abuse patient.[facility] Hospital[facility] the event this information is protected by the Federal Confidentiality of Alcohol and Drug Abuse Patient Records regulations: The Federal rules restrict any use of the information to criminally investigate or prosecute any alcohol or drug abuse patient.[facility] the event this information is protected by the Federal Confidentiality of Alcohol and Drug Abuse Patient Records regulations: The Federal rules restrict any use of the information to criminally investigate or prosecute any alcohol or drug abuse patient.[facility] the event this information is protected by the Federal Confidentiality of Alcohol and Drug Abuse Patient Records regulations: The Federal rules restrict any use of the information to criminally investigate or prosecute any alcohol or drug abuse patient.[facility] the event this information is protected by the Federal Confidentiality of Alcohol and Drug Abuse Patient Records regulations: The Federal rules restrict any use of the information to criminally investigate or prosecute any alcohol or drug abuse patient.[facility] Reason for Visit (unrecogniz ed section and content) Reason Comments Refill Request Reason Onset Date Comments Refill Request 09/09/2021 Reason Comments Sleep Problem Reason Onset Date Comments Refill Request 12/10/2021 Reason Onset Date Comments Refill Request 12/30/2021 Reason Onset Date Comments Refill Request 01/04/2022 Reason Onset Date Comments Refill Request 01/12/2022 Reason Comments Ear Pain L ear pain, MERRILL, sinu s pain and pressure x1 week Reason Onset Date Comments Refill Request 06/06/2022 Care Teams (unrecognized sec tion and content) Wildlife Manager Relationship Specialty Start Date End Date Anya Serrato MD [address] [facility] [place] [address] PCP - General Internal Medicine 04/01/17 Wildlife Manager Relationship Specialty Start Date End Date Anya Serrato MD [address] [facility] [place] [address] PCP - General Internal Medicine 04/01/17 Wildlife Manager Relationship Specialty Start Date End Date Anya Serrato MD [address] [facility] [place] [address] PCP - General Internal Medicine 04/01/17 Wildlife Manager Relationship Specialty Start Date End Date Anya Serrato MD [address] [place] [address] PCP - General Internal Medicine 04/01/17 Wildlife Manager Relationship Specialty Start Date End Date Anya Serrato MD [address] [facility] [place] [address] PCP - General Internal Medicine 04/01/17 Wildlife Manager Relationship Specialty Start Date End Date Anya Serrato MD [address] [facility] [place] [address] PCP - General Internal Medicine 04/01/17 Wildlife Manager Relationship Specialty Start Date End Date Anya Serrato MD [address] [facility] [place] [address] PCP - General Internal Medicine 04/01/17 Wildlife Manager Relationship Specialty Start Date End Date Anya Serrato MD [address] [place], [place] [id number] PCP - General Internal Medicine 04/01/17 Wildlife Manager Relationship Specialty Start Date End Date Anya Serrato MD [address] [place], [place] [id number] PCP - General Internal Medicine 04/01/17 Wildlife Manager Relationship Specialty Start Date End Date Anya Serrato MD [address] [place] [address] PCP - General Internal Medicine 04/01/17 FOR RECORDS PERTAINING TO PATIENTS WHO ARE OR HAVE BEEN ENROLLED IN A CHEMICAL DEPENDENCY/SUBSTANCEABUSE PROGRAM, SOME INFORMATION MAY BE OMITTED. This clinical summary was aggregated from multiple sources. Caution should be exercised in using it in the provision of clinical care. This summary normalizes information from multiple sources, and as a consequence, information in this document may materially change the coding, format and clinical context of patient data. In addition, data may be omitted in some cases. CLINICAL DECISIONS SHOULD BE BASED ON THE PRIMARY CLINICAL RECORDS. [employer] [facility]. provides no warranty or guarantee of the accuracy or completeness of information in this document.
[2023-05-26 17:44] LABS: Hematocrit 41.6 % (37-47); Hemoglobin 13.3 g/dL (12.0-15.0); Mean Corpuscular Hgb 27.2 pg (27.0-32.0); Mean Corpuscular Volume 85.1 fL (81-99); Mean Platelet Vol. 8.8 fl (6.2-12.0); Platelet Count 447 K/mm3 (150-450); RBC Distribution Width CV 14.3 % (11.6-14.6); RBC Distribution Width SD 44.1 fl (35.1-43.9); Red Blood Count 4.89 M/mm3 (4.2-5.4)
[2023-05-26 17:55] LABS: Erythrocyte Sedimentation Rate 19 mm/hr (0-30)
[2023-05-26 18:33] LABS: ALB/GLOB Ratio 0.9 RATIO (0.9-2.4); AST(SGOT) 18 U/L (15-37); Alanine Aminotransfer ALT/SGPT 23 U/L (13-56); Albumin, Serum 3.5 g/dL (3.2-5.0); Alkaline Phosphatase 72 U/L (45-117); Anion Gap 7 (5-15); BUN 17 mg/dL (7-18); BUN/Creat Ratio 29.1 RATIO (10-20); Calcium,Total 8.9 mg/dL (8.5-10.1); Chloride 103 mmol/L (98-107); Creatinine, Serum 0.58 mg/dL (0.55-1.02); EST Glomerular Filtration Rate 114 mL/min (>60); Est Glom Filt Rate - Afr Amer 138 mL/min (>60); Globulin 3.9 g/dL (2.2-4.2); Glucose 84 mg/dL (74-106); Potassium 4.2 mmol/L (3.5-5.1); Protein, Total 7.4 g/dL (6.4-8.2); Sodium Level 137 mmol/L (136-145)
== END | disposition home or self-care (01) ==
LOC: MTLAB 15:45
PROVIDERS: PCP Family Medicine; Referring Provider Internal Medicine Gastroenterology; Visit Provider Internal Medicine Gastroenterology
DX: K51.90 Ulcerative colitis, unspecified, without complications (principal)
CPT/HCPCS: 36415; 80053; 85027; 85652; 86140

== ENCOUNTER → 2023-06-26 | Outpatient (CLI) | payer OTHER, SELFPAY | END | disposition home or self-care (01) | PROVIDERS: PCP Family Medicine; Referring Provider Internal Medicine Gastroenterology; Visit Provider Internal Medicine Gastroenterology | DX: K51.90 Ulcerative colitis, unspecified, without complications (principal) | CPT/HCPCS: 36415 ==

== ENCOUNTER → 2023-07-18 | Outpatient (CLI) | payer OTHER, SELFPAY ==
--- NOTE | 2023-07-18 07:47 | RAD_ITS ---
STUDY: X-RAY - ESOPHAGUS (BARIUM SWALLOW) WITH FLUOROSCOPY REASON FOR EXAM: Female, 53 years old. DYSPHAGIA TECHNIQUE: 17 view(s) of the esophagus were obtained following swallowing of barium. FLUOROSCOPY TIME (if supplied): (43 seconds) minutes/seconds. 10.79 mGy. COMPARISON: None. FINDINGS: There is no demonstrated esophageal foreign body. There is no demonstrated stricture or mucosal abnormality. Normal gastroesophageal junction, without a demonstrated hiatal hernia. Mild gastroesophageal reflux. The patient ingested a 12 mm tablet of barium without any difficulty. Normal visualized aortic arch and descending thoracic aorta. Normal visualized pulmonary parenchyma. Normal visualized osseous structures of the thorax. RAD/Esophagus Single Contrast IMPRESSION: Mild degree of gastroesophageal reflux. Electronically Signed: Mario Walsh MD at 8:43 EDT ,
== END | disposition home or self-care (01) ==
LOC: RAD 07:43
PROVIDERS: PCP Family Medicine; Referring Provider Internal Medicine Gastroenterology; Visit Provider Internal Medicine Gastroenterology
DX: R13.10 Dysphagia, unspecified (principal)
CPT/HCPCS: 74220

== ENCOUNTER → 2023-08-09 | Outpatient (CLI) | payer OTHER, SELFPAY ==
[2023-08-09 15:12] LABS: Absolute Lymphocyte Count 2.49 X10^3/uL (0.83-4.51); Absolute Neutrophil Count 4.2 X10^3/uL (2.0-7.7); Basophil# 0.04 X10^3/uL; Basophil% 0.6 % (0-1); Eosinophil# 0.04 X10^3/uL; Eosinophils% 0.6 % (0-5); Hematocrit 42.2 % (37-47); Hemoglobin 13.3 g/dL (12.0-15.0); Lymphocyte # 2.49 X10^3/ul (0.83-4.51); Lymphocyte % 34.5 % (19-41); Mean Corp Hgb Conc 31.5 g/dL (32-36); Mean Corpuscular Hgb 27.6 pg (27.0-32.0); Mean Corpuscular Volume 87.6 fL (81-99); Mean Platelet Vol. 9.4 fl (6.2-12.0); Monocyte# 0.41 X10^3/uL; Monocyte% 5.7 % (0-10); NRBC Flagged by Analyzer 0 % (0-5); Neutrophil # 4.21 X10^3/uL (2.7-7.7); Neutrophil % 58.3 % (47-70); Platelet Count 333 K/mm3 (150-450); RBC Distribution Width CV 13.9 % (11.6-14.6); RBC Distribution Width SD 44.8 fl (35.1-43.9); Red Blood Count 4.82 M/mm3 (4.2-5.4); White Blood Count 7.2 K/mm3 (4.4-11.0)
[2023-08-09 15:42] LABS: AST(SGOT) 15 U/L (15-37); Alanine Aminotransfer ALT/SGPT 20 U/L (13-56); Albumin, Serum 3.6 g/dL (3.2-5.0); Alkaline Phosphatase 68 U/L (45-117); Bilirubin, Direct 0.13 mg/dL (0.00-0.30); Globulin 3.5 g/dL (2.2-4.2); Protein, Total 7.1 g/dL (6.4-8.2)
== END | disposition home or self-care (01) ==
PROVIDERS: PCP Family Medicine; Referring Provider Internal Medicine Gastroenterology; Visit Provider Internal Medicine Gastroenterology
DX: K51.90 Ulcerative colitis, unspecified, without complications (principal)
CPT/HCPCS: 36415; 80076; 85025

== ENCOUNTER 2023-12-05 11:00 | Outpatient (RCR) | payer OTHER, SELFPAY ==
--- NOTE | 2023-12-05 08:44 | HP.PTEVAL_ITS ---
Patient's Visit Information Visit Information Visit Information: BRANDAN MEDRANO is a 53 year old F referred to Physical Therapy by Dr. Matthew English DO with a diagnosis of B shoulder bursitis. Date of Evaluation: 11/21/23 Physical Therapist: Franklyn Hickey DPT Visit Plan Frequency: 1x/Week Duration: 6 Weeks Plan: Start with progressive strengthening in none painful ranges of B shoulder and scapular musculature. I gave her an HEP today she is to complete on her own for 2 weeks then follow back up with PT. Subjective Subjective: Pt. is here today for her initial evaluation with diagnosis of B shoulder bursitis. Pt. reports having increased symptoms for a few years. No mech of injury. Pt. reports R being worse the L, but the L is more recent. She does have a R RTC for year with no pain at rest, but very painful at night. Her left is more pain with lifting over head. She is having trouble with sleeping as well. Pain L shoulder: Pain Intensity (Out of 10): 2 Pain Intensity Range: 0 and 4 R shoulder: Pain Intensity (Out of 10): 3 Pain Intensity Range: 1 and 4 Objective Objective: POSTURE: Pt. has fairly normal posture in stance, equal shoulder heights. PALPATION: Pt. has mild soreness at anterior sub acromial space. NEURO: normal throughout. AROM: R shoulder: flexion 170deg increase NW, 175 no pain, functional ER C3, functional IR R SI joint. L shoulder: Full motion except slight reduced functional IR and end range ABD with mild increase symptoms. PROM: full mild increase NW at end ranges. MMT: R shoulder: flexion 11.1#, abd 9.1#, ER 7.9#, IR 11.2#. L shoulder: flexion 13.1#, abd 10.9#, ER 9.1#, IR 13.2#. Pt. did have an MRI on both: R RTC tear, L bursitis, no injection currently. Special Tests R Shoulder Drop Sign - IS Test: Negative R Shoulder Empty Can - SS: Positive R Shoulder Belly Press - SupScap: Negative R Shoulder Neer - Impingement: Positive R Shoulder Glynn Abel - Impingement: Positive L Shoulder Empty Can - SS: Positive L Shoulder Belly Press - SupScap: Negative L Shoulder Neer - Impingement: Positive L Shoulder Glynn Abel - Impingement: Positive Balance/Special Test Scores Quick DASH Score: 52.2725 Goals Goal 1:: LTG: Pt to be I with HEP for B shoulder and RTC strengthening. Goal Time Frame: 4-6 Weeks Goal 2:: LTG: Pt. to sleep throughout the night without increase in symptoms. Goal Time Frame: 4-6 Weeks Goal 3:: LTG: Pt. to have full B shoulder ROM without increase in symptoms. Goal Time Frame: 4-6 Weeks Goal 4:: STG: pt. to sleep throughout the night without increase in symptoms. Goal Time Frame: 2-4 Weeks Goal 5:: LTG: Pt. to have increased B shoulder strength by 5# throughout. Goal Time Frame: 4-6 Weeks Rehabilitation Potential Physical Therapy Diagnosis: Pt. has signs and symptoms consistent with B shoulder bursitis. Pt. has a RTC tear and bursitis on the L side via MRI. Pt. does have some minimal ROM issues, but more issue with her strength. Pt. would benefit from PT get a strengthening program in order to attempt to stave off any surgical procedures. Rehabilitation Potential: Good Anticipated Interventions Patient/Client Instruction: Educate patient on: Condition, Plan of Care, Risk Factors and Benefits of Fitness Program For the Purpose of:: To improve decision making, To facilitate caregiver knowledge, To improve self management, To prevent re-injury, To improve ability to perform tasks related to life management and To improve tolerance to ADL's Therapeutic Exercise to Include: Strength training, Power training, Passive ROM, Active ROM and Scapular Strength/Stabilization For the Purpose of:: To decrease pain, To increase ROM, To improve nutrient delivery to tissue, To increase oxygenation perfusion, To improve muscle performance and motor function, To improve ability to perform ADL's, To increase tolerance to activity/condition/position and To improve performance and independence with ADL's Text: Thank you for the opportunity to evaluate your patient. For Medicare and Medicare HMO plans, please review the plan of care and approve it. It will need to be FAXED BACK to us at [phone] for Medicare purposes. For Medicare only, by signing this I certify the plan of care. Please let me know if there are questions or concerns regarding this plan of care. Physician Kathy greer: Date:
== END 2023-12-05 19:00 | disposition home or self-care (01) ==
LOC: PT 11:00
PROVIDERS: Referring Provider Student in an Organized Health Care Education/Training Program; Visit Provider Student in an Organized Health Care Education/Training Program
DX: M75.51 Bursitis of right shoulder (principal); M75.52 Bursitis of left shoulder; M75.42 Impingement syndrome of left shoulder
CPT/HCPCS: 97110; 97161

== ENCOUNTER → 2024-03-01 | Outpatient (CLI) | payer OTHER, SELFPAY ==
[2024-03-01 16:12] LABS: Absolute Neutrophil Count 4.5 X10^3/uL (2.0-7.7); Basophil# 0.04 X10^3/uL; Basophil% 0.6 % (0-1); Eosinophil# 0.02 X10^3/uL; Eosinophils% 0.3 % (0-5); Hematocrit 42.3 % (37-47); Hemoglobin 13.7 g/dL (12.0-15.0); Lymphocyte % 25.1 % (19-41); Mean Corp Hgb Conc 32.4 g/dL (32-36); Mean Corpuscular Hgb 27.8 pg (27.0-32.0); Mean Corpuscular Volume 85.8 fL (81-99); Mean Platelet Vol. 9.4 fl (6.2-12.0); Monocyte# 0.49 X10^3/uL; Monocyte% 7.2 % (0-10); NRBC Flagged by Analyzer 0 % (0-5); Neutrophil # 4.51 X10^3/uL (2.7-7.7); Neutrophil % 66.5 % (47-70); Platelet Count 360 K/mm3 (150-450); RBC Distribution Width CV 14.2 % (11.6-14.6); RBC Distribution Width SD 44.5 fl (35.1-43.9); Red Blood Count 4.93 M/mm3 (4.2-5.4); White Blood Count 6.8 K/mm3 (4.4-11.0)
[2024-03-01 16:20] LABS: Erythrocyte Sedimentation Rate 8 mm/hr (0-30)
[2024-03-01 17:02] LABS: ALB/GLOB Ratio 1.1 RATIO (0.9-2.4); AST(SGOT) 20 U/L (15-37); Alanine Aminotransfer ALT/SGPT 23 U/L (13-56); Albumin, Serum 3.8 g/dL (3.2-5.0); Alkaline Phosphatase 76 U/L (45-117); Anion Gap 5 (5-15); BUN 11 mg/dL (7-18); BUN/Creat Ratio 15.9 RATIO (10-20); CRP 5.05 mg/L (0.0-3.0); Calcium,Total 9.2 mg/dL (8.5-10.1); Chloride 105 mmol/L (98-107); Creatinine, Serum 0.69 mg/dL (0.55-1.02); EST Glomerular Filtration Rate 93 mL/min (>60); Est Glom Filt Rate - Afr Amer 113 mL/min (>60); Globulin 3.6 g/dL (2.2-4.2); Glucose 83 mg/dL (74-106); Potassium 3.8 mmol/L (3.5-5.1); Protein, Total 7.4 g/dL (6.4-8.2); Sodium Level 138 mmol/L (136-145)
[2024-03-06 01:07] LABS: Lyme IgG P18 Ab Absent (.); Lyme IgG P23 Ab Absent (.); Lyme IgG P28 Ab Absent (.); Lyme IgG P30 Ab Absent (.); Lyme IgG P39 Ab Absent (.); Lyme IgG P41 Ab Absent (.); Lyme IgG P45 Ab Absent (.); Lyme IgG P58 Ab Present (.); Lyme IgG P66 Ab Absent (.); Lyme IgG P93 Ab Absent (.); Lyme IgG WB Interpretation Negative (.); Lyme IgM P23 Ab Absent (.); Lyme IgM P39 Ab Present (.); Lyme IgM P41 Ab Absent (.); Lyme IgM WB Interpretation Negative (.)
== END | disposition home or self-care (01) ==
LOC: LAB 15:09
PROVIDERS: PCP Family Medicine; Referring Provider Student in an Organized Health Care Education/Training Program; Visit Provider Student in an Organized Health Care Education/Training Program
DX: K51.90 Ulcerative colitis, unspecified, without complications (principal); M25.50 Pain in unspecified joint
CPT/HCPCS: 36415; 80053; 85025; 85652; 86140; 86617

== ENCOUNTER → 2024-03-20 | Outpatient (CLI) | payer OTHER, SELFPAY ==
--- NOTE | 2024-03-20 16:44 | RAD_ITS ---
STUDY: X-RAY - LEFT TIBIA AND FIBULA REASON FOR EXAM: Female, 54 years old. injury, pain, swelling TECHNIQUE: 2 view(s) of the tibia and fibula were obtained. COMPARISON: None. FINDINGS: Normal visualized tibia. Normal visualized fibula. There is no demonstrated acute fracture. The soft tissue structures are unremarkable. RAD/Tibia & Fibula 2 Views IMPRESSION: Normal x-ray examination of the tibia and fibula. Electronically Signed: Amari Silva MD at 17:06 EST ,
== END | disposition home or self-care (01) ==
LOC: MTRAD 16:44
PROVIDERS: PCP Family Medicine; Referring Provider Nurse Practitioner Family; Visit Provider Nurse Practitioner Family
DX: M79.605 Pain in left leg (principal)
CPT/HCPCS: 73590

== ENCOUNTER → 2024-03-21 | Outpatient (CLI) | payer OTHER, SELFPAY ==
--- NOTE | 2024-03-21 12:57 | VDLE_ITS ---
Reason For Study: PAIN RIGHT LEFT CFV is compressible, spontaneous, phasic, GSV is normal. competent and demonstrates normal CFV is compressible, spontaneous, phasic, augmentation. competent, and demonstrates normal Procedure augmentation. This is a venous duplex using B-mode, color FV is compressible, spontaneous, phasic, flow and spectral Doppler. competent and demonstrates normal Exam performed in department. augmentation. A preliminary report was called and/or faxed POP V is compressible, spontaneous, phasic, to Helen Duff EMERGENCY DEPT TECH-C @ [phone] @ 13:30. competent and demonstrates normal augmentation. T/P Trunk is compressible. PTV is compressible. LT PerV is compressible. VL/Venous Duplex US, Unilateral Interpretation Summary Deep veins of the left lower extremity are patent and compressible segmentally. There is no evidence of left lower extremity deep vein thrombosis. Valvular competence appears intac t within the proximal deep venous system on the left . The left great saphenous vein appears patent a nd compressible segmentally. The right common femoral vein is patent and compressible . Ordering Physician: Helen Duff Referring Physician: Sabi Stanley Performed By: Lavonne Vargas, JUAN MANUEL, RVT
[2024-03-24 01:06] LABS: Calprotectin, Stool 11 ug/g (0-120)
== END | disposition home or self-care (01) ==
LOC: CVS 12:28
PROVIDERS: Student in an Organized Health Care Education/Training Program; PCP Family Medicine; Referring Provider Nurse Practitioner Family; Visit Provider Nurse Practitioner Family
DX: M79.605 Pain in left leg (principal)
CPT/HCPCS: 83993; 93971

== ENCOUNTER → 2024-03-26 | Outpatient (CLI) | payer OTHER, SELFPAY ==
--- NOTE | 2024-03-26 12:14 | EKG12_ITS ---
Test Reason : PRE OP Blood Pressure : */* mmHG Vent. Rate : 73 BPM Atrial Rate : 73 BPM P-R Int : 132 ms QRS Dur : 76 ms QT Int : 398 ms P-R-T Axes : 57 67 14 degrees QTcB Int : 438 ms Normal sinus rhythm Normal ECG Confirmed by Óscar Hurley ([id number]), photographic editor MONET SALAZAR ([id number]) on 03/27/2024 5:49:51 AM Referred By: Fernando Lozada Confirmed By: Óscar Hurley
[2024-03-26 12:48] LABS: Hematocrit 41.3 % (37-47); Hemoglobin 13.5 g/dL (12.0-15.0); Mean Corp Hgb Conc 32.7 g/dL (32-36); Mean Corpuscular Hgb 28.4 pg (27.0-32.0); Mean Corpuscular Volume 86.9 fL (81-99); Platelet Count 278 K/mm3 (150-450); RBC Distribution Width CV 13.7 % (11.6-14.6); RBC Distribution Width SD 43.8 fl (35.1-43.9); Red Blood Count 4.75 M/mm3 (4.2-5.4); White Blood Count 5.7 K/mm3 (4.4-11.0)
[2024-03-26 13:26] LABS: Anion Gap 6 (5-15); BUN 9 mg/dL (7-18); BUN/Creat Ratio 17.3 RATIO (10-20); Calcium,Total 8.9 mg/dL (8.5-10.1); Chloride 106 mmol/L (98-107); Creatinine, Serum 0.52 mg/dL (0.55-1.02); EST Glomerular Filtration Rate 130 mL/min (>60); Est Glom Filt Rate - Afr Amer 157 mL/min (>60); Glucose 91 mg/dL (74-106); Potassium 4.4 mmol/L (3.5-5.1); Sodium Level 138 mmol/L (136-145)
== END | disposition home or self-care (01) ==
LOC: PSN 12:11
PROVIDERS: PCP Family Medicine; Referring Provider Otolaryngology; Visit Provider Otolaryngology
DX: Z01.818 Encounter for other preprocedural examination (principal)
CPT/HCPCS: 36415; 80048; 85027; 93005

== ENCOUNTER → 2024-07-08 | Outpatient (CLI) | payer OTHER, SELFPAY ==
[2024-07-08 16:17] LABS: Hematocrit 38.5 % (37-47); Hemoglobin 12.8 g/dL (12.0-15.0); Mean Corp Hgb Conc 33.2 g/dL (32-36); Mean Corpuscular Hgb 27.9 pg (27.0-32.0); Mean Corpuscular Volume 84.1 fL (81-99); Mean Platelet Vol. 8.9 fl (6.2-12.0); Platelet Count 331 K/mm3 (150-450); RBC Distribution Width CV 13.8 % (11.6-14.6); RBC Distribution Width SD 42.2 fl (35.1-43.9); Red Blood Count 4.58 M/mm3 (4.2-5.4); White Blood Count 6.2 K/mm3 (4.4-11.0)
[2024-07-08 19:48] LABS: AST(SGOT) 23 U/L (<=31); Alanine Aminotransfer ALT/SGPT 15 U/L (<=34); Albumin, Serum 4.1 g/dL (3.5-5.0); Alkaline Phosphatase 68 U/L (35-104); CRP 6.82 mg/L (0.0-3.0); Globulin 3.1 g/dL (2.2-4.2); Protein, Total 7.2 g/dL (5.9-8.4); Total Bilirubin 0.24 mg/dL (0.00-1.30)
[2024-07-16 13:08] LABS: Clam <0.10 kU/L (Class 0); Codfish <0.10 kU/L (Class 0); Corn <0.10 kU/L (Class 0); Egg, White <0.10 kU/L (Class 0); Milk (Cow) <0.10 kU/L (Class 0); Peanut <0.10 kU/L (Class 0); SCALLOP <0.10 kU/L (Class 0); SESAME SEED <0.10 kU/L (Class 0); Shrimp <0.10 kU/L (Class 0); Soybean <0.10 kU/L (Class 0); Walnut, (Food) <0.10 kU/L (Class 0); Wheat <0.10 kU/L (Class 0)
== END | disposition home or self-care (01) ==
LOC: LAB 15:34
PROVIDERS: PCP Family Medicine; Referring Provider Otolaryngology; Visit Provider Internal Medicine Gastroenterology
DX: K51.90 Ulcerative colitis, unspecified, without complications (principal); T78.40XA Allergy, unspecified, initial encounter
CPT/HCPCS: 36415; 80076; 85027; 86003; 86140

== ENCOUNTER → 2024-08-06 | Outpatient (CLI) | payer OTHER, SELFPAY ==
[2024-08-06 17:59] LABS: Erythrocyte Sedimentation Rate 10 mm/hr (0-30)
[2024-08-06 19:25] LABS: CRP 5.33 mg/L (0.0-3.0); Cholesterol 230 mg/dL (<=200); High Density Lipoprotein 66 mg/dL; Low Density Lipoprotein Calc. 128 mg/dL; Triglycerides 183 mg/dL; Very Low Density Lipoprotein 37 mg/dL (5-40); cholesterol:hdl ratio screen 3.49
[2024-08-06 19:27] LABS: Vitamin D,25 Hydroxy 26.2 ng/mL (30-100)
[2024-08-08 13:08] LABS: ANTINUCLEAR ANTIBODIES DIRECT Positive (Negative); Anti-Nuclear Antibody Test Positive (.)
[2024-08-09 12:08] LABS: Dilute Prothrombin Time (dPT) 36.2 sec (0.0-47.6); Dilute Russell Viper Venom 37.9 sec (0.0-47.0); Hexagonal Phase Phospholipid 2 13 sec (0-11); Interpretation Comment: (.); PTT-LA Mix 42.7 sec (0.0-40.5); Thrombin Time 18.9 sec (0.0-23.0); dPT Confirm Ratio 1.12 Ratio (0.00-1.34)
== END | disposition home or self-care (01) ==
LOC: MTLAB 14:33
PROVIDERS: PCP Family Medicine; Referring Provider Family Medicine; Visit Provider Family Medicine
DX: M79.10 Myalgia, unspecified site (principal); M25.50 Pain in unspecified joint; N95.1 Menopausal and female climacteric states; Z13.220 Encounter for screening for lipoid disorders
CPT/HCPCS: 36415; 80061; 82306; 84443; 85652; 86038; 86140

== ENCOUNTER → 2024-08-22 | Outpatient (CLI) | payer OTHER, SELFPAY ==
[2024-08-22 12:19] LABS: Absolute Lymphocyte Count 1.28 X10^3/uL (0.83-4.51); Absolute Neutrophil Count 2.9 X10^3/uL (2.0-7.7); Basophil# 0.04 X10^3/uL; Basophil% 0.9 % (0-1); Eosinophil# 0.03 X10^3/uL; Eosinophils% 0.6 % (0-5); Hematocrit 41.7 % (37-47); Hemoglobin 13.7 g/dL (12.0-15.0); Lymphocyte # 1.28 X10^3/ul (0.83-4.51); Lymphocyte % 27.4 % (19-41); Mean Corp Hgb Conc 32.9 g/dL (32-36); Mean Corpuscular Hgb 28.2 pg (27.0-32.0); Mean Platelet Vol. 9.3 fl (6.2-12.0); Monocyte# 0.43 X10^3/uL; Monocyte% 9.2 % (0-10); NRBC Flagged by Analyzer 0 % (0-5); Neutrophil # 2.88 X10^3/uL (2.7-7.7); Neutrophil % 61.7 % (47-70); Platelet Count 355 K/mm3 (150-450); RBC Distribution Width CV 14.2 % (11.6-14.6); Red Blood Count 4.85 M/mm3 (4.2-5.4); White Blood Count 4.7 K/mm3 (4.4-11.0)
== END | disposition home or self-care (01) ==
LOC: LAB 10:55
PROVIDERS: PCP Family Medicine; Referring Provider Internal Medicine Critical Care Medicine; Visit Provider Internal Medicine Critical Care Medicine
DX: R76.8 Other specified abnormal immunological findings in serum (principal); R05.3 Chronic cough
CPT/HCPCS: 36415; 82785; 85025; 86003; 86037; 86038; 86225; 86235; 86606; 86617

== ENCOUNTER → 2024-09-19 | Outpatient (CLI) | payer OTHER, SELFPAY | END | disposition home or self-care (01) | LOC: PSN 10:02 | PROVIDERS: PCP Family Medicine; Referring Provider Internal Medicine Critical Care Medicine; Visit Provider Internal Medicine Critical Care Medicine | DX: R05.3 Chronic cough (principal) | CPT/HCPCS: 94060; 94726; 94729 ==

== ENCOUNTER → 2024-10-07 | Outpatient (CLI) | payer OTHER, SELFPAY ==
--- NOTE | 2024-10-07 12:07 | RAD_ITS ---
PROCEDURE: CHEST PA AND LATERAL 10/07/2024 REASON FOR EXAM: CHRONIC COUGH TECHNIQUE: Frontal and lateral views of the chest. COMPARISON: Two-view chest, 10/14/2022. FINDINGS: There is mild interstitial thickening in the mid and lower lung zones, not significantly changed. There is no lobar consolidation or pleural effusion. The heart size is normal. The mediastinum and pulmonary vascular pattern are unremarkable. There are surgical clips in the right breast. The upper abdominal bowel gas pattern is normal. There are no bony abnormalities. RAD/Chest PA and Lateral IMPRESSION: Mild chronic interstitial lung disease. Recommendation: High-resolution CT chest. Reading Location: [place] [id number]
--- OUTSIDE RECORDS SUMMARY | 2024-10-07 23:09 | XMS RPT_ITS | CCD ---
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 Name Role Phone Curtis Calloway Admitting Unavailable Curtis Calloway Attending Unavailable Anya Kirk MD Primary Care Provider [phone] Anya Kirk MD Primary Care Provider [phone] Anya Kirk MD Primary Care Provider LIBRADO DALTON Attending Unavailable LIBRADO DALTON Referring Unavailable SHER SIMPSON Primary Care Unavailable LIBRADO DALTON Attending Unavailable LIBRADO DALTON S Referring Unavailable SHER SIMPSON Primary Care Unavailable Sher Simpson DO Primary Care Provider [phone] Unavailable Primary Care Provider UnavailSAADIA Lopez Referring UnavailSabi Guillaume MD Primary Care Provider Omega [employer] TRACK WORKER-CHelen Attending Provider Omega [employer] TR[employer] WORKER-CHelen Referring Provider Fani Virgen Other Provider Maxine CASTILLO, Dr. Lee Meade Attending Provider Dr. Saadia Lozada MD Attending Provider Dr. Saadia Lozada MD Referring Provider Dr. Óscar Hurley MD Attending Provider Dr. Ezekiel Love MD Attending Provider Sabi Arnett MD Primary Care Provider Dr. Saadia Lozada MD Referring Provider Sabi Arnett MD Attending Provider [phone] Sabi Arnett MD Referring Provider Dr. Best Santana DO Attending Provider Dr. Best Santana DO Referring Provider Omega RA[employer] TRACK WORKER, Helen Attending Unavailable Omega RAILWAY TRACK WORKER, Helen Referring Unavailable Jaden, Chalon Primary Care Unavailable Atanasov, Fani Attending Unavailable LawnasovFani Referring Unavailable Jaden, Chalon Primary Care Unavailable Spittle, Matthew Attending Unavailable Spittle, Matthew Referring Unavailable Brown, Best Attending Unavailable Brown, Best Referring Unavailable Jaden, Chalon Primary Care Unavailable Brown, Best Attending Unavailable Brown, Best Referring Unavailable Jaden, Chalon Primary Care Unavailable Brown, Best Attending Unavailable Jaden, Chalon Referring Unavailable Jaden, Chalon Primary Care Unavailable Jaden, Chalon Primary Care Unavailable Óscar Hurley Attending Unavailable Saadia Lozada Referring Unavailabl e Best Santana Attending Unavailable Jaden, Chalon Referring Unavailable Jaden, Chalon Primary Care Unavailable Phu, Fani Attending Unavailable Jaden, Chalon Primary Care Unavailable Saadia Lozada Attending Unavailabl e Saadia Lozada Referring Unavailabl e Omega [employer] TRACK WORKER, Helen Attending Unavailable Omega RAILWAY TRACK WORKER, Helen Referring Unavailable Phu, Fani Consulting Unavailable Jaden, Chalon Primary Care Unavailable Jaden, Sharleneon Attending Unavailable Jaden, Chalon Referring Unavailable Jaden, Chalon Primary Care Unavailable Jaden, Chalon Primary Care Unavailable Ezekiel Love Attending Unavailable Saadia Lozada Referring Unavailabl e Allergies Allergy Classification Reported Allergen(s) Allergy Type Date of Onset Reaction(s) Facility (5 sources) Adhesive agent; Translations: [ADHESIVE] Drug Allergy 6 [facility] Work Phone: (16 sources) Promethazine; Translations: [PROMETHAZINE HCL] Drug Allergy 6 [facility] Work Phone: (16 sources) Homeopathic Products; Translations: [HOMEOPATHIC PRODUCTS] Propensity to adverse reactions 6 [facility] Work Phone: (11 sources) Adhesive agent Drug Allergy 6 [facility] Work Phone: (4 sources) Mold Extract Drug Allergy 4 Other [facility] (1 source) Mold Extract Drug Allergy 5 [facility] Repository Medications Current Medications Medication Drug Class(es) Dates Sig (Normalized) Sig (Original) Albuterol-Budesonid e (Airsupra) 90-80 mcg/actuation HFA aerosol inhaler (2 sources) Start: 08-27-2024 Albuterol-Budeson nikita (Airsupra) 90-80 mcg/actuation HFA aerosol inhaler Active 2 NMA INHALATION .every 4 hours as needed for shortness of breath 10.7 August 27, 2024 12:00am as a single dose; may repeat up to 6 doses per day (12 inhalations) amoxicillin 875 mg oral tablet (1 source) Penicillin-class Antibacterial Start: 02-04-2022 End: 02-11-2022 take 1 tablet by mouth twice daily amoxicillin (AMOXIL) 875 mg tablet Take 1 tablet by mouth twice daily for 7 days. 14 tablet 0 02/04/2022 02/11/2022 Active Comment on above: Take 1 tablet by [facility] twice daily for 7 days. azaTHIOprine 50 mg oral tablet (4 sources) Purine Antimetabolite Start: 02-12-2024 take 1 tablet by mouth once daily Azathioprine 50 mg tablet Active 100 mg PO daily February 12, 2024 12:00am azelastine hydrochloride 0.137 mg/actuat metered dose nasal spray (1 source) Histamine-1 Receptor Antagonist Start: 10-07-2024 Azelastine 137 mcg (0.1 %) spray,non-aerosol Active 2 NMA INTRANASAL TWICE A DAY October 07, 2024 12:00am administer into each nostril balsalazide disodium 750 mg oral capsule (20 sources) Aminosalicylate Start: 08-22-2024 take 1 capsule by mouth three times daily Balsalazide 750 mg capsule Active 2250 mg PO THREE TIMES A DAY August 22, 2024 12:00am Start: 04-03-2023 take 3 capsules by m outh three times daily balsalazide (COLAZAL) 750 mg capsule Indications: Ulcerative pancolitis without complication (HCC) Take 3 capsules by mouth three times a day. 270 capsule 11 04/03/2023 Active Start: 09-16-2022 take 3 capsules by m outh three times daily balsalazide (COLAZAL) 750 mg capsule Indications: Ulcerative pancolitis without complication (HCC) Take 3 capsules by mouth three times daily. 270 capsule 11 01/14/2022 Active Start: 05-21-2021 End: 01-12-2022 take 3 capsules by mouth three times daily balsalazide (COLAZAL) 750 mg capsule Indications: Ulcerative pancolitis without complication (HCC) Take 3 capsules by mouth three times daily. 270 capsule 0 05/21/2021 01/12/2022 Discontinued balsalazide (Col azal) 750 mg capsule every 8 hours. 0 Active Comment on above: Take 3 capsules by m outh three times daily. 24 hr budesonide 9 mg extended release oral tablet (1 source) Corticosteroid Start: 06-05-19 24 Uceris 9 mg tablet Budesonide-Formoterol (1 source) Corticosteroid, beta2-Adrenergic Agonist Start: 10-08-19 25 Budesonide-Formote rol (Symbicort) 160-4.5 mcg/actuation HFA aerosol inhaler Active 2 NMA INHALATION TWICE A DAY 10.2 October 07, 2024 12:00am cetirizine hydrochloride 10 mg oral tablet (6 sources) Histamine-1 Receptor Antagonist Start: 02-12-20 24 take 1 tablet by mouth once daily as needed Cetirizine (Zyrtec) 10 mg tablet Active 10 mg PO daily as needed February 12, 2024 12:00am take 1 tablet by mouth once ed y cetirizine (ZyrTEC) 10 mg tablet Take 1 tablet (10 mg) by mouth once daily. 0 Active citalopram 10 mg oral tablet (20 sources) Serotonin Reuptake Inhibitor Start: 05-21-2021 End: 04-27-2022 take 1 tablet by mouth once daily citalopram hydrobromide (CELEXA) 10 mg tablet Take 1 tablet by mouth once daily 90 tablet 04/27/2022 Active Start: 07-27-2017 take 1 tablet by apm th once daily Citalopram (Celexa) 20 mg tablet Active 20 mg PO daily July 27, 2017 12:00am Comment on above: Take 1 tablet by pam th once daily. Take 1 tablet by pam th once daily Ergocalciferol (2 sources) Provitamin D2 Compound Start: 08-23-19 Ergocalciferol (Vitamin D2) 1,250 mcg (50,000 unit) capsule Active 1250 ug PO EVERY WEEK August 22, 2024 12:00am eszopiclone 2 mg oral tablet (9 sources) Start: 12-31-19 End: 03-30-20 take 1 tablet by mouth at bedtime as needed eszopiclone (LUNESTA) 2 mg Indications: Primary insomnia Take 1 tablet by mouth at bedtime as needed (insomnia) for up to 90 days. 30 tablet 2 12/30/2021 03/30/2022 Active Start: 10-06-2021 End: 11-05-2021 take 1 tablet by mouth every 30 days at bedtime as needed eszopiclone (LUNESTA) 2 mg Indications: Primary insomnia Take 1 tablet by mouth at bedtime as needed (insomnia) for up to 30 days. 30 tablet 2 10/06/2021 11/05/2021 Active Start: 09-10-2021 End: 12-09-2021 take 1 tablet by mouth at bedtime as needed eszopiclone (LUNESTA) 2 mg Indications: Primary insomnia Take 1 tablet by mouth at bedtime as needed (insomnia) for up to 90 days. 30 tablet 0 09/10/2021 10/06/2021 Discontinued Start: 05-21-2021 End: 08-19-2021 take 1 tablet by mouth at bedtime as needed eszopiclone (LUNESTA) 2 mg Indications: Primary insomnia Take 1 tablet by mouth at bedtime as needed (insomnia) for up to 90 days. 30 tablet 2 05/21/2021 08/19/2021 Active Comment on above: Take 1 tablet by pam th at bedtime as needed (insomnia) for up to 90 days. Take 1 tablet by pam th at bedtime as needed (insomnia) for up to 30 days. folic acid 2.5 mg / vitamin b12 2 mg / vitamin b6 25 mg oral tablet (17 sources) Vitamin B12 Start: 2 End: 3 take 2 tablets by mouth once daily folic acid-Vit B6-Vit B12 (FOLBIC) 2.5-25-2 mg tab Indications: Thrombotic microangiopathy (HCC) , Abnormal coagulation profile Take 2 tablets by mouth once daily. 180 tablet 06/07/2022 Active take 1 tablet by mouth twice aminata ly Folbic 2.5-25-2 mg tablet Take 1 tablet by mouth 2 times a day. 0 Active Comment on above: Take 2 tablets by mo [facility] once daily. Infliximab (Remicade) 100 mg recon soln (2 sources) Start: 08-23-19 Infliximab (Remicade) 100 mg recon soln Active 0 .ROUTE every 8 weeks August 22, 2024 12:00am 100 mg every 8 weeks; infusion mesalamine 66.7 mg/ml enema (1 source) Aminosalicylate Start: 06-05-19 mesalamine (Rowasa) 4 gram/60 mL enema montelukast 10 mg oral tablet (2 sources) Leukotriene Receptor Antagonist Start: 08-23-19 take 1 tablet by mouth once daily in the evening Montelukast 10 mg tablet Active 10 mg PO EVERY EVENING August 22, 2024 12:00am omeprazole 20 mg delayed release oral capsule (4 sources) Proton Pump Inhibitor Start: 02-12-20 take 1 capsule by mouth once daily Omeprazole 20 mg capsule,delayed release(DR/EC) Active 20 mg PO daily February 12, 2024 12:00am RABEprazole sodium 20 mg delayed release oral tablet (4 sources) Proton Pump Inhibitor Start: 02-12-20 take 1 tablet by mouth once daily Rabeprazole 20 mg tablet,delayed release (DR/EC) Active 20 mg PO daily February 12, 2024 12:00am rizatriptan 10 mg oral tablet (20 sources) Serotonin-1b and Serotonin-1d Receptor Agonist Start: 02-12-20 take 1 tablet by mouth once Rizatriptan 10 mg tablet Active 10 mg PO ONCE February 12, 2024 12:00am as a single dose Start: 12-30-2021 take 1 tablet by [facility] once daily rizatriptan (Maxalt) 10 mg tablet Take 1 tablet (10 mg) by mouth once daily. 0 12/30/2021 Active Start: 05-21-2021 End: 12-30-2021 rizatriptan (MAXALT) 10 mg t ablet Indications: Migraine without status migrainosus, not intractable, unspecified migraine type Take at onset of headache; may repeat after 2hrs. Do not exceed 30mg/day (3 doses). 20 tablet 1 12/30/2021 Active Comment on above: Take at onset of hea dache; may repeat after 2hrs. Do not exceed 30mg/day (3 doses). Tirzepatide (Mounjaro) 2.5 mg/0.5 mL pen injector (1 source) Start: 10-07-2024 Tirzepatide (Mounjaro) 2.5 mg/0.5 mL pen injector Active 2.5 mg SC EVERY WEEK October 07, 2024 12:00am for 4 weeks triamcinolone acetonide 0.055 mg/actuat metered dose nasal spray (6 sources) Corticosteroid Start: 02-12-2024 Triamcinolone Acetonide (Nasacort Allergy) 55 mcg aerosol,spray Active 1 NMA INTRANASAL daily February 12, 2024 12:00am administer into each nostril triamcinolone (N asacort) 55 mcg nasal inhaler once every 24 hours. 0 Active vitamin b12 1 mg oral tablet (2 sources) Vitamin B12 Start: 05-29-2023 End: 05-28-2024 take 1 tablet by mouth once daily cyanocobalamin (Vitamin B-12) 1,000 mcg tablet Indications: History of prothrombin mutation , Family history of prothrombin gene mutation Take 1 tablet (1,000 mcg) by mouth once daily. 30 tablet 11 05/29/2023 05/28/2024 Active Completed/Discontinued Medications Medication Drug Class(es) Dates Sig (Normalized) Sig (Original) folic acid 1 mg oral tablet (9 sources) Start: 07-27-2017 End: 03-01-2024 take 2 tablets by mouth once daily Folic Acid 1 mg tablet Discontinued 2 mg PO daily July 27, 2017 12:00am March 01, 2024 2:36pm Start: 07-27-2017 take 2 mg by mouth once daily Folic Acid Active 2 MG PO daily July 27, 2017 12:00am naproxen sodium 220 mg oral tablet (2 sources) Nonsteroidal Anti-inflammatory Drug End: 06-23-2023 naproxen sodium (Aleve) 220 mg tablet every 12 hours. 0 06/23/2023 Discontinued (Therapy completed) Problems Active Problems Problem Classification Problem Date Documented Date Episodic/Chronic Headache; including migraine (2 sources) Migraine; Translations: [Migraine, unspecified, not intractable, without status migrainosus] Chronic Immunizations and screening for infectious disease (6 sources) Anti-nuclear factor positive; Translations: [Other specified abnormal immunological findings in serum] Onset: 08-27-2024 08-22-2024 Episodic Miscellaneous mental health disorders (20 sources) Chronic insomnia; Translations: [Psychophysiologic insomnia] Onset: 08-20-2014 Chronic Mood disorders (17 sources) Recurrent major depressive episodes, moderate ; Translations: [Major depressive disorder, recurrent, moderate] Onset: 01-12-2012 Resolved: 08-20-2014 Chronic Nonmalignant breast conditions (9 sources) Breast lump; Translations: [Unspecified lump in the right breast, unspecified quadrant] 07-27-2017 Episodic Nutritional deficiencies (1 source) Cobalamin deficiency; Translations: [Deficiency of other specified B group vitamins] Episodic Other circulatory disease (16 sources) Thrombotic microangiopathy; 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 Other connective tissue disease (1 source) Myalgia, unspecified site; Translations: [Myalgia, unspecified site] Onset: 08-12-2024 Episodic Other endocrine disorders (15 sources) Disorder of anterior pituitary; Translations: [Other disorders of pituitary gland] Onset: 07-31-2008 09-29-2008 Chronic Other hematologic conditions (2 sources) Personal history of diseases of the blood and blood-forming organs and certain disorders involving the immune mechanism; Translations: [Personal history of diseases of the blood and blood-forming organs and certain disorders involving the immune mechanism] Onset: 05-29-2023 Episodic Other infections; including parasitic (2 sources) Lyme disease; Translations: [Lyme disease, unspecified] 08-22-2024 Episodic Other lower respiratory disease (6 sources) Chronic cough; Translations: [Chronic cough] Onset: 09-26-2024 08-22-2024 Episodic Other non-traumatic joint disorders (4 sources) Joint pain; Translations: [Pain in unspecified joint] 03-01-2024 Episodic Other screening for suspected conditions (not mental disorders or infectious disease) (20 sources) Coag./bleeding tests abnormal; Translations: [Abnormal coagulation profile] 07-01-2009 Episodic Other upper respiratory infections (1 source) Acute maxillary sinusitis; Translations: [Acute maxillary sinusitis, unspecified] Episodic Regional enteritis and ulcerative colitis (20 sources) Ulcerative pancolitis; Translations: [Ulcerative (chronic) pancolitis without complications] Onset: 08-17-2005 Resolved: 03-20-2015 03-20-2015 Chronic Residual codes; unclassified (15 sources) Periodic limb movement disorder; Translations: [Periodic limb movement disorder] Onset: 08-20-2014 08-20-2014 Chronic Residual codes; unclassified (1 source) History of right mastectomy; Translations: [Other specified postprocedural states] 07-27-2017 Episodic Residual codes; unclassified (9 sources) History of laparoscopy; Translations: [Other specified postprocedural states] 07-27-2017 Episodic Comment on above: Endometriosis 1999 Residual codes; unclassified (8 sources) Other specified postprocedural states; Translations: [Status post right breast lumpectomy] 07-27-2017 Episodic Comment on above: 2009 Residual codes; unclassified (2 sources) Family history of diseases of the blood and blood-forming organs and certain disorders involving the immune mechanism; Translations: [Family history of diseases of the blood and blood-forming organs and certain disorders involving the immune mechanism] Onset: 05-29-2023 Episodic Unclassified (2 sources) Antinuclear antibody (ALBERTINA) positive; Translations: [R76.8 - Other specified abnormal immunological findings in serum] Past or Other Problems Problem Classification Problem Date Documented Da te Episodic/Chronic Headache; including migraine (15 sources) Headache; Translations: [Headache] Onset: 09-29-2008 09-29-2008 Episodic Hemorrhoids (1 source) Thrombosed hemorrhoids; Translations: [Perianal venous thrombosis] Onset: 05-17-2005 Resolved: 07-01-2009 07-01-2009 Episodic Other connective tissue disease (15 sources) Impingement syndrome of right shoulder region; Translations: [Impingement syndrome of right shoulder] Onset: 10-28-2014 10-28-2014 Episodic Other connective tissue disease (15 sources) Impingement syndrome of left shoulder region; Translations: [Impingement syndrome of left shoulder] Onset: 10-28-2014 10-28-2014 Episodic Other connective tissue disease (1 source) Pain in left leg; Translations: [Pain in left leg] Onset: 04-19-2024 Episodic Other connective tissue disease (1 source) Bursitis of left shoulder; Translations: [Bursitis of left shoulder] Onset: 05-15-2024 Episodic Other connective tissue disease (1 source) Bursitis of right shoulder; Translations: [Bursitis of right shoulder] Onset: 05-15-2024 Episodic Other connective tissue disease (1 source) Impingement syndrome of right shoulder; Translations: [Impingement syndrome of right shoulder] Onset: 05-15-2024 Episodic Other hematologic conditions (2 sources) H/O: blood disorder; Translations: [Personal history of diseases of the blood and blood-forming organs and certain disorders involving the immune mechanism] 05-29-2023 Episodic Residual codes; unclassified (2 sources) Insomnia; Translations: [Insomnia, unspecified] Onset: 09-29-2008 Resolved: 03-20-2015 Episodic Residual codes; unclassified (2 sources) Family history of gene mutation; Translations: [Family history of diseases of the blood and blood-forming organs and certain disorders involving the immune mechanism] 05-29-2023 Episodic Unclassified (2 sources) Onset: 05-29-2023 Resolved: 06-23-2023 05-29-2023 Results Test Name Value Interpretation Reference Range Facility ALBERTINA Comprehensive Panelon ANTI-CENT B AB <0.2 Normal 0.0-0.9 [facility] Comment on above: Order Comment: Order Date: 12/01/23 Order Info: [id number] - LIPID Order Info: [id number] - TSH Performed By: #### L [id number], L500.4100 #### [facility] [address] [place], [place], [id number] ANTI-DNA (DS)AB 1 IU/mL Normal 0-9 [facility] Comment on above: Order Comment: Order Date: 12/01/23 Order Info: [id number] - LIPID Order Info: [id number] - TSH Result Comment: Nega tive <5 Equivocal 5 - 9 Positive >9 Performed By: #### L [id number], L500.4100 #### [facility] [address] [place], [address] ANTI-PRECIOUS-1 <0.2 Normal 0.0-0.9 [facility] Comment on above: Order Comment: Order Date: 12/01/23 Order Info: [id number] - LIPID Order Info: [id number] - TSH Performed By: #### L [id number], L500.4100 #### [facility] [address] [place], [address] ANTI-SS-A 0.5 AI Normal 0.0-0.9 [facility] Comment on above: Order Comment: Order Date: 12/01/23 Order Info: [id number] - LIPID Order Info: [id number] - TSH Performed By: #### L [id number], L500.4100 #### [facility] [address] [place], [address] ANTI-SS-B < 0.2 Normal 0.0-0.9 [facility] Comment on above: Order Comment: Order Date: 12/01/23 Order Info: [id number] - LIPID Order Info: [id number] - TSH Performed By: #### L [id number], L500.4100 #### [facility] [address] [place], [address] ANTICHROMATIN <0.2 Normal 0.0-0.9 [facility] Comment on above: Order Comment: Order Date: 12/01/23 Order Info: [id number] - LIPID Order Info: 3 - TSH Performed By: #### L [id number], L500.4100 #### [facility] [address] [place], [address] HAND REAMER Ab 4.6 AI Abnormal 0.0-0.9 [facility] Comment on above: Order Comment: Order Date: 12/01/23 Order Info: [id number] - LIPID Order Info: 3 - TSH Performed By: #### L [id number], L500.4100 #### [facility] [address] [place], [address] SALAS Ab <0.2 Normal 0.0-0.9 [facility] Comment on above: Order Comment: Order Date: 12/01/23 Order Info: [id number] - LIPID Order Info: [id number] - TSH Performed By: #### L [id number], L500.4100 #### [facility] [address] [place], [address] ALBERTINA w/ Reflex Mult Confirmon 08-28-2024 ALBERTINA,DIRECT Positive Abnormal Negative [facility] Comment on above: Order Comment: DR. Jose Roberto CARTER ORDERED LYME DR. SANTANA ORDERED ALL OTHER TESTS Reason for Exam: Asthma Result Comment: Perf ormed at: - [facility] [address] [id number] Home Care Companion: Ezekiel Murillo PhD, Phone: [phone] Performed at: - [facility] [id number] Home Care Companion: Benjie Zaman MD, Phone: [phone] Performed By: #### L 5500.0700, L7000.5800, L3300.1200, L3200.1600, L3100.5440, L100.0100, L3500.3600, L3100.5450 #### [facility] [address] [place], [place], [address] ANCAon 08-28-2024 Atypical pANCA <1:20 Normal Neg:<1:20 [facility] Comment on above: Order Comment: Order Date: 12/01/23 Order Info: [id number] - LIPID Order Info: [id number] - TSH Result Comment: The atypical pANCA pattern has been observed in a significant percentage of patients with ulcerative colitis, primary sclerosing cholangitis and autoimmune hepatitis. Performed By: #### L [id number], L500.4100 #### [facility] [address] [place], [place], [id number] Cytoplasmic Ab <1:20 Normal Neg:<1:20 [facility] Comment on above: Order Comment: Order Date: 12/01/23 Order Info: [id number] - LIPID Order Info: [id number] - TSH Performed By: #### L [id number], L500.4100 #### [facility] [address] [place], [address] Perinuclear Ab. <1:20 Normal Neg:<1:20 [facility] Comment on above: Order Comment: Order Date: 12/01/23 Order Info: [id number] - LIPID Order Info: [id number] - TSH Result Comment: The presence of positive fluorescence exhibiting P-ANCA or C-ANCA patterns alone is not specific for the diagnosis of Kayla's Granulomatosis (WG) or microscopic polyangiitis. Decisions about treatment should not be based solely on ANCA IFA results. The [employer] ANCA [employer] Consensus recommends follow up testing of positive sera with both DE- 3 and MPO-ANCA enzyme immunoassays. As many as 5% serum samples are positive only by EIA. Ref. AM J Clin Pathol 1999;111:507-513. Performed By: #### L 501.9520, L500.4100 #### [facility] [address] [place], [address] Allergen Resp. Area 08-01 ALTERNARIA TEN <0.10 Normal Class 0 [facility] Comment on above: Order Comment: Order Date: 12/01/23 Order Info: [id number] - LIPID Order Info: [id number] - TSH Performed By: #### L 501.9520, L500.4100 #### [facility] [address] [place], [address] ROGER, WHITE <0.10 Normal Class 0 [facility] Comment on above: Order Comment: Order Date: 12/01/23 Order Info: [id number] - LIPID Order Info: [id number] - TSH Performed By: #### L 501.9520, L500.4100 #### [facility] [address] [place], [address] ASPERGILLUS FUM <0.10 Normal Class 0 [facility] Comment on above: Order Comment: Order Date: 12/01/23 Order Info: [id number] - LIPID Order Info: 3 - TSH Performed By: #### L [id number], L500.4100 #### [facility] [address] [place], [address] BERMUDA GRASS <0.10 Normal Class 0 [facility] Comment on above: Order Comment: Order Date: 12/01/23 Order Info: [id number] - LIPID Order Info: 3 - TSH Performed By: #### L [id number], L500.4100 #### [facility] [address] [place], [address] BIRCH <0.10 Normal Class 0 [facility] Comment on above: Order Comment: Order Date: 12/01/23 Order Info: [id number] - LIPID Order Info: [id number] - TSH Performed By: #### L 501.9520, L500.4100 #### [facility] [address] [place], [address] BLACK WALNUT <0.10 Normal Class 0 [facility] [facility] Comment on above: Order Comment: Order Date: 12/01/23 Order Info: [id number] - LIPID Order Info: [id number] - TSH Performed By: #### L 501.9520, L500.4100 #### [facility] [address] [place], [address] CAT HAIR/DANDER <0.10 Normal Class 0 [facility] Comment on above: Order Comment: Order Date: 12/01/23 Order Info: [id number] - LIPID Order Info: [id number] - TSH Performed By: #### L 501.9520, L500.4100 #### [facility] [address] [place], [address] CLADOSPOR HERB <0.10 Normal Class 0 [facility] Comment on above: Order Comment: Order Date: 12/01/23 Order Info: [id number] - LIPID Order Info: [id number] - TSH Performed By: #### L 501.9520, L500.4100 #### [facility] [address] [place], [address] COCKROACH,AMER <0.10 Normal Class 0 [facility] Comment on above: Order Comment: Order Date: 12/01/23 Order Info: [id number] - LIPID Order Info: [id number] - TSH Performed By: #### L 501.9520, L500.4100 #### [facility] [address] [place], [address] COMMENT Comment Normal . [facility] Comment on above: Order Comment: Order Date: 12/01/23 Order Info: [id number] - LIPID Order Info: [id number] - TSH Result Comment: Lisbeth horne of Specific IgE Class Description of Class ----- < 0.10 0 Negative 0.10 - 0.31 0/I Equivocal/Low 0.32 - 0.55 I Low 0.56 - 1.40 II Moderate 1.41 - 3.90 III High 3.91 - 19.00 IV Very High 19.01 - 100.00 V Very High >100.00 Very High Performed By: #### L 501.9520, L500.4100 #### [facility] [address] [place], [address] COTTONWOOD <0.10 Normal Class 0 [facility] Comment on above: Order Comment: Order Date: 12/01/23 Order Info: [id number] - LIPID Order Info: [id number] - TSH Performed By: #### L 501.9520, L500.4100 #### [facility] [address] [place], [address] D FARINAE MITE <0.10 Normal Class 0 [facility] Comment on above: Order Comment: Order Date: 12/01/23 Order Info: [id number] - LIPID Order Info: [id number] - TSH Performed By: #### L 501.9520, L500.4100 #### [facility] [address] [place], [address] D PTERONYSSINUS <0.10 Normal Class 0 [facility] Comment on above: Order Comment: Order Date: 12/01/23 Order Info: [id number] - LIPID Order Info: [id number] - TSH Performed By: #### L 501.9520, L500.4100 #### [facility] [address] [place], [address] DOG EPITHELIA <0.10 Normal Class 0 [facility] Comment on above: Order Comment: Order Date: 12/01/23 Order Info: [id number] - LIPID Order Info: 3013 - TSH Performed By: #### L 501.9520, L500.4100 #### [facility] [address] [place], [address] ELM,AMER WHITE <0.10 Normal Class 0 [facility] Comment on above: Order Comment: Order Date: 12/01/23 Order Info: [id number] - LIPID Order Info: [id number] - TSH Performed By: #### L 501.9520, L500.4100 #### [facility] [address] [place], [address] IMMUNOGLOB E 4 IU/mL Low 6-495 [facility] Comment on above: Order Comment: Order Date: 12/01/23 Order Info: [id number] - LIPID Order Info: [id number] - TSH Performed By: #### L 501.9520, L500.4100 #### [facility] [address] [place], [address] MAPLE/BOX ELDER <0.10 Normal Class 0 [facility] Comment on above: Order Comment: Order Date: 12/01/23 Order Info: [id number] - LIPID Order Info: [id number] - TSH Performed By: #### L 501.9520, L500.4100 #### [facility] [address] [place], [address] MOUNTAIN CEDAR <0.10 Normal Class 0 [facility] Comment on above: Order Comment: Order Date: 12/01/23 Order Info: [id number] - LIPID Order Info: [id number] - TSH Performed By: #### L 501.9520, L500.4100 #### [facility] [address] [place], [address] Mouse Urine <0.10 Normal Class 0 [facility] Comment on above: Order Comment: Order Date: 12/01/23 Order Info: [id number] - LIPID Order Info: 3 - TSH Performed By: #### L 501.9520, L500.4100 #### [facility] [address] [place], [address] MULBERRY,WHITE <0.10 Normal Class 0 [facility] Comment on above: Order Comment: Order Date: 12/01/23 Order Info: [id number] - LIPID Order Info: 3 - TSH Performed By: #### L 501.9520, L500.4100 #### [facility] [address] [place], [address] OAK, WHITE <0.10 Normal Class 0 [facility] Comment on above: Order Comment: Order Date: 12/01/23 Order Info: [id number] - LIPID Order Info: [id number] - TSH Performed By: #### L 501.9520, L500.4100 #### [facility] [address] [place], [address] PECAN <0.10 Normal Class 0 [facility] Comment on above: Order Comment: Order Date: 12/01/23 Order Info: [id number] - LIPID Order Info: [id number] - TSH Performed By: #### L 501.9520, L500.4100 #### [facility] [address] [place], [address] PEN NOTATUM <0.10 Normal Class 0 [facility] Comment on above: Order Comment: Order Date: 12/01/23 Order Info: [id number] - LIPID Order Info: [id number] - TSH Performed By: #### L 501.9520, L500.4100 #### [facility] [address] [place], [address] PIGWEED, ROUGH <0.10 Normal Class 0 [facility] Comment on above: Order Comment: Order Date: 12/01/23 Order Info: [id number] - LIPID Order Info: 3 - TSH Performed By: #### L 501.9520, L500.4100 #### [facility] [address] [place], [address] RAGWEED SH/COM <0.10 Normal Class 0 [facility] Comment on above: Order Comment: Order Date: 12/01/23 Order Info: - LIPID Order Info: [id number] - TSH Performed By: #### L 501.9520, L500.4100 #### [facility] [address] [place], [address] GRENADIAN THISTLE <0.10 Normal Class 0 [facility] Comment on above: Order Comment: Order Date: 12/01/23 Order Info: [id number] - LIPID Order Info: 3 - TSH Performed By: #### L 501.9520, L500.4100 #### [facility] [address] [place], [address] SHEEP SORREL <0.10 Normal Class 0 [facility] Comment on above: Order Comment: Order Date: 12/01/23 Order Info: [id number] - LIPID Order Info: 3 - TSH Performed By: #### L 501.9520, L500.4100 #### [facility] [address] [place], [address] SYCAMORE, AMER <0.10 Normal Class 0 [facility] Comment on above: Order Comment: Order Date: 12/01/23 Order Info: [id number] - LIPID Order Info: 3 - TSH Performed By: #### L 501.9520, L500.4100 #### [facility] [address] [place], [address] FRANCIA GRASS <0.10 Normal Class 0 [facility] Comment on above: Order Comment: Order Date: 12/01/23 Order Info: - LIPID Order Info: [id number] - TSH Performed By: #### L 501.9520, L500.4100 #### [facility] [address] [place], [address] Aspergillus Antibodieson Asp. flavus Negative Normal Neg:<1:1 [facility] Comment on above: Order Comment: Order Date: 12/01/23 Order Info: - LIPID Order Info: [id number] - TSH Performed By: #### L 501.9520, L500.4100 #### [facility] [address] [place], [address] Asp. fumigatus Negative Normal Neg:<1:1 [facility] Comment on above: Order Comment: Order Date: 12/01/23 Order Info: - LIPID Order Info: [id number] - TSH Performed By: #### L 501.9520, L500.4100 #### [facility] [address] [place], [address] Asp. niger Negative Normal Neg:<1:1 [facility] Comment on above: Order Comment: Order Date: 12/01/23 Order Info: [id number] - LIPID Order Info: [id number] - TSH Performed By: #### L 501.9520, L500.4100 #### [facility] [address] [place], [address] Immunoglobulin Samson 5 IMMUNOGLOB E QN 4 IU/mL Low 6-495 [facility] Comment on above: Order Comment: Order Date: 12/01/23 Order Info: [id number] - LIPID Order Info: [id number] - TSH Result Comment: Perf ormed at: - [facility] [address] [id number] Home Care Companion: Benjie Zaman MD, Phone: [phone] Performed at: - [facility] [address] [id number] Home Care Companion: Ezekiel Murillo PhD, Phone: [phone] Performed By: #### L 501.9520, L500.4100 #### [facility] [address] [place], [address] Lyme Antibodies,W Bloton Lyme Additional Comment Normal . [facility] Comment on above: Order Comment: Order Date: 12/01/23 Order Info: [id number] - LIPID Order Info: [id number] - TSH Result Comment: Per CDC criteria, the Lyme IgG Immunoblot is interpreted as positive if IgG-class antibodies are detected to 5 or more B. burgdorferi proteins, and the Lyme IgM Immunoblot is interpreted as positive if IgM-class antibodies are detected to 2 or more B. burgdorferi proteins. Immunoblot patterns not meeting these criteria should not be interpreted as positive. Epitopes from certain B. burgdorferi proteins (e.g., p41) are conserved across other bacteria, which may lead to the detection of IgM-and/or IgG class antibodies on the Lyme disease immunoblots in patients without Lyme disease. Immunoblot should only be ordered on specimens that are positive or equivocal by an FDA-licensed Lyme disease antibody screening test (e.g., EIA). Results of the Lyme IgM immunoblot should not be considered in patients with 30 or more days of symptoms. Performed By: #### L 501.9520, L500.4100 #### [facility] [address] [place], [place], [address] LYME IgG INTERP Negative Normal Negative [facility] Comment on above: Order Comment: Order Date: 12/01/23 Order Info: [id number] - LIPID Order Info: [id number] - TSH Performed By: #### L 501.9520, L500.4100 #### [facility] [address] [place], [address] LYME IgM INTERP Negative Normal Negative [facility] Comment on above: Order Comment: Order Date: 12/01/23 Order Info: [id number] - LIPID Order Info: [id number] - TSH Result Comment: Faraz gamboa Note: Lyme immunoblot alone is not recommended for the diagnosis of Lyme disease. Current guidelines recommend the use of a two-tiered approach to Lyme serology testing to improve the sensitivity and specificity of testing. [facility] offers test code 810518 Lyme Disease Serology with Reflex to aid in the diagnosis of Lyme Disease. Performed By: #### L 501.9520, L500.4100 #### [facility] [address] [place], [address] P18 Ab Absent Normal . [facility] Comment on above: Order Comment: Order Date: 12/01/23 Order Info: [id number] - LIPID Order Info: 3 - TSH Performed By: #### L 501.9520, L500.4100 #### [facility] [address] [place], [address] P23 Ab Absent Normal . [facility] Comment on above: Order Comment: Order Date: 12/01/23 Order Info: [id number] - LIPID Order Info: 3 - TSH Performed By: #### L 501.9520, L500.4100 #### [facility] [address] [place], [address] P28 Ab Absent Normal . [facility] Comment on above: Order Comment: Order Date: 12/01/23 Order Info: [id number] - LIPID Order Info: 6-3 - TSH Performed By: #### L 501.9520, L500.4100 #### [facility] [address] [place], [address] P30 Ab Absent Normal . [facility] Comment on above: Order Comment: Order Date: 12/01/23 Order Info: [id number] - LIPID Order Info: 3 - TSH Performed By: #### L 501.9520, L500.4100 #### [facility] [address] [place], [address] P39 Ab Present Normal . [facility] Comment on above: Order Comment: Order Date: 12/01/23 Order Info: [id number] - LIPID Order Info: 3 - TSH Performed By: #### L 501.9520, L500.4100 #### [facility] [address] [place], [address] P41 Ab Present Normal . [facility] Comment on above: Order Comment: Order Date: 12/01/23 Order Info: [id number] - LIPID Order Info: 3 - TSH Performed By: #### L 501.9520, L500.4100 #### [facility] [address] [place], [address] P41 Ab Absent Normal . [facility] Comment on above: Order Comment: Order Date: 12/01/23 Order Info: [id number] - LIPID Order Info: 63 - TSH Performed By: #### L 501.9520, L500.4100 #### [facility] [address] [place], [address] P45 Ab Absent Normal . [facility] Comment on above: Order Comment: Order Date: 12/01/23 Order Info: [id number] - LIPID Order Info: 3 - TSH Performed By: #### L 501.9520, L500.4100 #### [facility] [address] [place], [address] P58 Ab Present Normal . [facility] Comment on above: Order Comment: Order Date: 12/01/23 Order Info: [id number] - LIPID Order Info: [id number] - TSH Performed By: #### L 501.9520, L500.4100 #### [facility] [address] [place], [address] P66 Ab Absent Normal . [facility] Comment on above: Order Comment: Order Date: 12/01/23 Order Info: - LIPID Order Info: [id number] - TSH Performed By: #### L 501.9520, L500.4100 #### [facility] [address] [place], [address] P93 Ab Present Normal . [facility] Comment on above: Order Comment: Order Date: 12/01/23 Order Info: - LIPID Order Info: [id number] - TSH Performed By: #### L 501.9520, L500.4100 #### [facility] [address] [place], [address] Absolute lymphocyte countOrd ered By: Best Santana on 08-22-2024 Lymphocytes Auto (Unsp spec) [#/Vol] 1.28 10*3/uL 0.83-4.51 [facility] Absolute neutrophil countOrd ered By: Best Santana on 08-22-2024 Neutrophils (Bld) [#/Vol] 2.9 10*3/uL 2.0-7.7 [facility] Automated lymphocyte count a s percentage of total leukocytesOrdered By: Best Santana on 08-22-2024 Lymphocytes/100 WBC Auto (Unsp spec) 27.4 % 19-41 [facility] Basophil percentageOrdered B y: Best Santana on 08-22-2024 Basophils/100 WBC (Bld) 0.9 % 0-1 [facility] CBC W/Diff, Automatedon 07-31 Absolute Lymph 1.28 X10 3/uL Normal 0.83-4.51 [facility] Comment on above: Order Comment: Order Date: 12/01/23 Order Info: [id number] - LIPID Order Info: [id number] - TSH Performed By: #### L 501.9520, L500.4100 #### [facility] [address] [place], [address] Absolute Neut 2.9 X10 3/uL Normal 2.0-7.7 [facility] Comment on above: Order Comment: Order Date: 12/01/23 Order Info: [id number] - LIPID Order Info: 3 - TSH Performed By: #### L 501.9520, L500.4100 #### [facility] [address] [place], [address] Basophils/100 WBC (Bld) 0.9 % Normal 0-1 [facility] Comment on above: Order Comment: Order Date: 12/01/23 Order Info: [id number] - LIPID Order Info: 3 - TSH Performed By: #### L 501.9520, L500.4100 #### [facility] [address] [place], [address] Eosinophils/100 WBC (Bld) 0.6 % Normal 0-5 [facility] Comment on above: Order Comment: Order Date: 12/01/23 Order Info: [id number] - LIPID Order Info: [id number] - TSH Performed By: #### L 501.9520, L500.4100 #### [facility] [address] [place], [address] Erythrocyte distribution width (RBC) [Ratio] 14.2 % Normal 11.6-14.6 [facility] Comment on above: Order Comment: Order Date: 12/01/23 Order Info: [id number] - LIPID Order Info: [id number] - TSH Performed By: #### L 501.9520, L500.4100 #### [facility] [address] [place], [address] Hematocrit (Bld) [Volume fraction] 41.7 % Normal 37-47 [facility] Comment on above: Order Comment: Order Date: 12/01/23 Order Info: [id number] - LIPID Order Info: [id number] - TSH Performed By: #### L 501.9520, L500.4100 #### [facility] [address] [place], [address] Hemoglobin (Bld) [Mass/Vol] 13.7 g/dL Normal 12.0-15. 0 [facility] Comment on above: Order Comment: Order Date: 12/01/23 Order Info: - LIPID Order Info: [id number] - TSH Performed By: #### L 501.9520, L500.4100 #### [facility] [address] [place], [address] IG% 0.200 Normal 0.0-0.9 [facility] Comment on above: Order Comment: Order Date: 12/01/23 Order Info: - LIPID Order Info: [id number] - TSH Result Comment: IG% - Immature Granulocytes (promyelocytes, myelocytes and metamyelocytes) > 1% indicates that a LEFT SHIFT is Present. Performed By: #### L 501.9520, L500.4100 #### [facility] [address] [place], [address] Lymphocytes/100 WBC (Bld) 27.4 % Normal 19-41 [facility] Comment on above: Order Comment: Order Date: 12/01/23 Order Info: - LIPID Order Info: [id number] - TSH Performed By: #### L 501.9520, L500.4100 #### [facility] [address] [place], [address] MCH (RBC) [Entitic mass] 28.2 pg Normal 27.0-32.0 [facility] Comment on above: Order Comment: Order Date: 12/01/23 Order Info: [id number] - LIPID Order Info: [id number] - TSH Performed By: #### L 501.9520, L500.4100 #### [facility] [address] [place], [address] MCHC (RBC) [Mass/Vol] 32.9 g/dL Normal 32-36 [facility] Comment on above: Order Comment: Order Date: 12/01/23 Order Info: [id number] - LIPID Order Info: [id number] - TSH Performed By: #### L 501.9520, L500.4100 #### [facility] [address] [place], [address] MCV (RBC) [Entitic vol] 86.0 fL Normal 81-99 [facility] Comment on above: Order Comment: Order Date: 12/01/23 Order Info: [id number] - LIPID Order Info: 3 - TSH Performed By: #### L 501.9520, L500.4100 #### [facility] [address] [place], [address] Monocytes/100 WBC (Bld) 9.2 % Normal 0-10 [facility] Comment on above: Order Comment: Order Date: 12/01/23 Order Info: [id number] - LIPID Order Info: 3 - TSH Performed By: #### L 501.9520, L500.4100 #### [facility] [address] [place], [address] Neutrophils/100 WBC (Bld) 61.7 % Normal 47-70 [facility] Comment on above: Order Comment: Order Date: 12/01/23 Order Info: [id number] - LIPID Order Info: 3 - TSH Performed By: #### L 501.9520, L500.4100 #### [facility] [address] [place], [address] Nucleated RBC (Bld) [#/Vol] 0 10*3/uL Normal 0-5 [facility] Comment on above: Order Comment: Order Date: 12/01/23 Order Info: [id number] - LIPID Order Info: [id number] - TSH Performed By: #### L 501.9520, L500.4100 #### [facility] [address] [place], [address] Platelet mean volume (Bld) [Entitic vol] 9.3 fL Normal 6.2-12.0 [facility] Comment on above: Order Comment: Order Date: 12/01/23 Order Info: [id number] - LIPID Order Info: [id number] - TSH Performed By: #### L 501.9520, L500.4100 #### [facility] [address] [place], [address] Platelets (Bld) [#/Vol] 355 10*3/uL Normal 150-450 [facility] Comment on above: Order Comment: Order Date: 12/01/23 Order Info: - LIPID Order Info: 3 - TSH Performed By: #### L 501.9520, L500.4100 #### [facility] [address] [place], [address] RBC (Bld) [#/Vol] 4.85 10*6/uL Normal 4.2-5.4 [facility] Comment on above: Order Comment: Order Date: 12/01/23 Order Info: [id number] - LIPID Order Info: [id number] - TSH Performed By: #### L 501.9520, L500.4100 #### [facility] [address] [place], [address] RDW SD 44.0 fl High 35.1-43.9 [facility] Comment on above: Order Comment: Order Date: 12/01/23 Order Info: [id number] - LIPID Order Info: [id number] - TSH Performed By: #### L 501.9520, L500.4100 #### [facility] [address] [place], [address] WBC (Bld) [#/Vol] 4.7 10*3/uL Normal 4.4-11.0 [facility] Comment on above: Order Comment: Order Date: 12/01/23 Order Info: [id number] - LIPID Order Info: [id number] - TSH Performed By: #### L 501.9520, L500.4100 #### [facility] [place], [address] Eosinophil percentageOrdered By: Best Santana on 08-22-2024 Eosinophils/100 WBC (Bld) 0.6 % 0-5 [facility] Erythrocyte distribution wid th ratioOrdered By: Best Santana on 08-22-2024 Erythrocyte distribution width (RBC) [Ratio] 14.2 % 11.6-14.6 [facility] Erythrocyte distribution wid th standard deviationOrdered By: Best Santana on 08-22-2024 Erythrocyte distribution width (RBC) [Ratio] 44.0 fl High 35.1-43.9 [facility] Hematocrit Auto (Bld) [Volum e fraction]Ordered By: Best Santana on 08-22-2024 Hematocrit (Bld) [Volume fraction] 41.7 % 37-47 [facility] Hemoglobin measurementOrdere d By: Best Santana on 08-22-2024 Hemoglobin (Bld) [Mass/Vol] 13.7 g/dL 12.0-15. 0 [facility] IgEOrdered By: Best Santana o n 08-22-2024 IgE 4 IU/mL Low 6-495 [facility] Comment on above: Performed at: [address] [id number] Director: Benjie Zaman MD, Phone: [phone] at: - [facility] [id number] Director: Ezekiel Murillo PhD, Phone: [phone] Immature granulocytes/100 WB C Auto (Bld)Ordered By: Best Santana on 08-22-2024 Immature granulocytes/100 WBC (Bld) 0.200 % 0.0-0.9 [facility] Comment on above: IG% - Immature Granu locytes (promyelocytes, myelocytes and metamyelocytes) > 1% indicates that a LEFT SHIFT is Present. MCV (mean corpuscular volume ) determinationOrdered By: Best Santana on 08-22-2024 MCV (RBC) [Entitic vol] 86.0 fL 81-99 [facility] Mean corpuscular hemoglobin (MCH) determinationOrdered By: Best Santana on 08-22-2024 MCH (RBC) [Entitic mass] 28.2 pg 27.0-32.0 [facility] Mean corpuscular hemoglobin concentration (MCHC) determinationOrdered By: Best Santana on 08-22-2024 MCHC (RBC) [Mass/Vol] 32.9 g/dL 32-36 [facility] Mean platelet volume determi nationOrdered By: Best Santana on 08-22-2024 Platelet mean volume (Bld) [Entitic vol] 9.3 fL 6.2-12.0 [facility] Monocyte percentageOrdered B y: Best Santana on 08-22-2024 Monocytes/100 WBC (Bld) 9.2 % 0-10 [facility] Neutrophil percentageOrdered By: Best Santana on 08-22-2024 Neutrophils/100 WBC (Bld) 61.7 % 47-70 [facility] No Panel InformationOrdered By: Best Santana on 08-22-2024 Lyme Disease IgG Ab 30 kDa Band Absent . [facility] Lyme Disease IgG Ab 93 kDa Band Present . [facility] Lyme Disease IgG [place] Interp Negative Negative [facility] Lyme Disease IgM Ab (Western Blot) Negative Negative [facility] Comment on above: Please Note: Lyme im munoblot alone is not recommended forthe diagnosis of Lyme disease. Current guidelines recommendthe use of a two-tiered approach to Lyme serology testingto improve the sensitivity and specificity of testing.[facility] offers test code 071960 Lyme Disease Serology withReflex to aid in the diagnosis of Lyme Disease. Lyme Disease Western Blot Comments Comment . [facility] Comment on above: Per CDC criteria, th e Lyme IgG Immunoblot is interpreted aspositive if IgG-class antibodies are detected to 5 or moreB. burgdorferi proteins, and the Lyme IgM Immunoblot isinterpreted as positive if IgM-class antibodies aredetected to 2 or more B. burgdorferi proteins. Immunoblotpatterns not meeting these criteria should not beinterpreted as positive. Epitopes from certain B.burgdorferi proteins (e.g., p41) are conserved across otherbacteria, which may lead to the detection of IgM-and/or IgGclass antibodies on the Lyme disease immunoblots inpatients without Lyme disease. Immunoblot should only beordered on specimens that are positive or equivocal by anA-licensed Lyme disease antibody screening test (e.g.,EIA). Results of the Lyme IgM immunoblot should not beconsidered in patients with 30 or more days of symptoms. [facility] Comment Comment . [facility] Comment on above: Levels of Specific I gE Class Description of Class ----- < 0.10 0 Negative 0.10 - 0.31 0/I Equivocal/Low 0.32 - 0.55 I Low 0.56 - 1.40 II Moderate 1.41 - 3.90 III High 3.91 - 19.00 IV Very High 19.01 - 100.00 V Very High >100.00 Very High Nucleated red blood cell per centageOrdered By: Best Santana on 08-22-2024 Nucleated RBC/100 WBC (Bld) [Ratio] 0 % 0-5 [facility] Platelet countOrdered By: Gruber on 08-22-2024 Platelets (Bld) [#/Vol] 355 10*3/uL 150-450 [facility] Pulmonary Visit Reporton Pulmonary Visit Report [facility] [place] [address] [place] [address]. [address] [place] [address] OFFICE VISIT Date of Service: 08/22/24 MR#: [id number] Acct: [id number] Name: SANDRA BRADLEY Rep #: [id number] 3 : 1970 Provider: Dr. Best Santana, Age/Sex: 54/F Location: [facility] Status: Signed Assessment and Plan Assessment and Plan (1) Chronic cough: Status: Chronic Plan: The patient presented today for the evaluation of a chronic cough of approximately 2 years duration. Given her reported symptom improvement with the use of albuterol, it is certainly plausible that the patient has underlying asthma, as she has experienced associated wheezing and chest tightness as well. At this time, we will plan to obtain baseline pulmonary function studies along with a CBC with differential to evaluate for peripheral eosinophilia, IgE, RAST profile, ANCA and Aspergillus antibodies. In the interim, the patient is going to be provided with a sample of Airsupra to be utilized as needed. The patient's symptom response to bronchodilator therapy will be reassessed at her follow-up office visit. Result: Oral exhaled NO (ppb): 34 Normal: 5-20 ppb (Adult) High Normal/Increased: 20-35 ppb (Adult). Moderately raised exhaled nitric oxide may indicate underlying inflammation, but notes that cold and influenza can raise exhaled nitric oxide in some patients have higher baseline levels than others. High: >35 ppb (Adult). Indicative of ongoing eosinophilic inflammation. Symptomatic patient likely to respond to steroids. Possible causes include: Poor compliance, recent allergen exposure, steroid dose inadequate, and steroid resistance. (2) ALBERTINA positive: Status: Acute Plan: The patient recently had a positive ALBERTINA screen. Will order follow-up with reflex. Orders: Orders Immunoglobulin E 08/22/24 R05.3 - Chronic cough Aspergillus Antibodies 08/22/24 R05.3 - Chronic cough CBC W/Diff, Automated 08/22/24 R05.3 - Chronic cough ANCA 08/22/24 R05.3 - Chronic cough ALBERTINA w/ Reflex Mult Confirm 08/22/24 R76.8 - Other specified abnormal immunological findings in serum ALBERTINA Comprehensive Panel 08/22/24 R76.8 - Other specified abnormal immunological findings in serum Allergen Resp. Area 5 08/22/24 R05.3 - Chronic cough PFT Complete - DLCO, Spirometry b/a bronchodilators, lung volumes 09/19/24 R05.3 - Chronic cough Plan Details Follow Up: 4 Weeks HPI HPI Comments Details: The patient is a 54-year-old female who presents to the clinic today in referral for the evaluation of a chronic cough. The patient reported that she has been suffering from a nonproductive chronic cough of approximately 2 years duration. She does have a known history of ulcerative colitis. She is currently undergoing evaluation for possible Lyme disease by her primary care provider. She has never been formally diagnosed with asthma previously. However, the patient admitted that recently she utilized her 's albuterol inhaler and did perceive symptom relief with its use. In addition to her cough, she does report occasional wheezing and chest tightness. The patient has never completed pulmonary function studies previously. She does have a known history of sinus disease, having completed a balloon sinuplasty 2 years ago. At the present time, she denies any sinus congestion or postnasal drip. She was also given an empiric trial of omeprazole in the past, which did not provide any symptom relief. She is not currently prescribed an ZAINA inhibitor. The patient currently keeps to dogs as pets in her home environment. She is a lifelong non-smoker without any significant occupational or environmental exposure history. She works from home full-time and also does part- time work for [employer]. She denies any fevers, chills or night sweats. Intake Vital Signs 08/22/24 07:54 Height 5 ft 3.5 in Weight: 151 lb BMI 26.3 BP 116/71 Blood Pressure Location Lt brachial Position Sitting Respiration 18 Pulse 83 Pulse Source Monitor Temp 97.5 F L Temperature Source Temporal Artery Pulse Oximetry (%) 95 Oxygen Delivery Method room air Intake Visit Reasons: Chronic Cough Chief Complaint: Internet Developer Required: No Accompanied by: Self Is patient in pain?: No Allergies mold (mold spores) Allergy (Verified 08/22/24 10:17) Other Medications ???Medication ???Instructions ???Recorded ???Confirmed ???Type citalopram 20 mg tablet (Celexa) 20 mg PO QDAY 07/27/17 08/22/24 Hi story azathioprine 50 mg tablet 100 mg PO QDAY 02/12/24 08/22/24 H istory cetirizine 10 mg tablet (Zyrtec) 10 mg PO QDAY PRN 02/12/24 5 History omeprazole 20 mg capsule,delayed 20 mg PO QDAY 02/12/24 08/22/24 Hi story release rabeprazole 20 mg tablet,delayed 20 mg PO QDAY (more content not included)... Normal [facility] RBC Auto (Bld) [#/Vol]Ordere d By: Best Santana on 08-22-2024 RBC (Bld) [#/Vol] 4.85 10*6/uL 4.2-5.4 [facility] Serum Citizen Of [place] sycamore IgE antibody assay (units/volume)Ordered By: Best Santana on 08-22-2024 Citizen [place] IgE Qn (S) <0.10 kU/L Class 0 [facility] Serum Aspergillus flavus ant ibody detection by immunodiffusionOrdered By: Best Santana on 08-22-2024 A. flavus Ab Immune diff Ql (S) Negative Neg:<1:1 [facility] Serum Aspergillus fumigatus IgE antibody assay (units/volume)Ordered By: Best Santana on 08-22-2024 A. fumigatus IgE Qn (S) <0.10 kU/L Class 0 [facility] Serum Aspergillus fumigatus antibody detection by immunodiffusionOrdered By: Best Santana on 08-22-2024 A. fumigatus Ab Immune diff Ql (S) Negative Neg:<1:1 [facility] Serum Aspergillus niger anti body detection by immunodiffusionOrdered By: Best Santana on 08-22-2024 A. niger Ab Immune diff Ql (S) Negative Neg:<1:1 [facility] Serum Bermuda grass IgE anti body assay (units/volume)Ordered By: Best Santana on 08-22-2024 Bermuda grass IgE Qn (S) <0.10 kU/L Class 0 [facility] Serum Cladosporium herbarum IgE antibody assay (units/volume)Ordered By: Best Santana on 08-22-2024 C. herbarum IgE Qn (S) <0.10 kU/L Class [address] [facility] Serum DNA double strand anti body assay (units/volume)Ordered By: Best Santana on 08-22-2024 DNA double strand Ab Qn (S) 1 [IU]/mL 0-9 [facility] Comment on above: Negative <5 Equivoca l 5 - 9 Positive >9 Serum Dermatophagoides ptero nyssinus specific IgE antibody assay (units/volume)Ordered By: Best Santana on 08-22-2024 house dust mite IgE Qn (S) <0.10 kU/L Class 0 [facility] Serum Fraxinus americana IgE antibody assay (units/volume)Ordered By: Best Santana on 08-22-2024 [place] IgE Qn (S) <0.10 kU/L Class 0 [facility] Serum Rumex acetosella IgE a ntibody assay (units/volume)Ordered By: Best Santana on 08-22-2024 Sheep [place] IgE Qn (S) <0.10 kU/L Class 0 [facility] Serum Indian thistle specif ic IgE antibody assayOrdered By: Best Santana on 08-22-2024 Saltwort IgE Qn (S) <0.10 kU/L Class 0 [facility] Serum Scl-70 antibody assay (units/volume)Ordered By: Best Santana on 08-22-2024 SCL-70 extractable nuclear Ab Qn (S) <0.2 AI 0.0-0.9 [facility] Comment on above: Previous reported re sult: TNP AIEdited by: NAZANIN on 08/28/24:06 AMENDED REPORT 08/28/24607 ANTISCLER previously reported as: Test not performed Serum black walnut IgE antib gertrude assay (units/volume)Ordered By: Best Santana on 08-22-2024 Black Antonito IgE Qn (S) <0.10 kU/L Class 0 [facility] Serum classic neutrophil cyt oplasmic antibody assay (units/volume)Ordered By: Best Santana on 08-22-2024 Neutrophil cytoplasmic Ab.classic Qn (S) <1:20 titer Neg:<1:20 [facility] Serum cottonwood IgE antibod y assay (units/volume)Ordered By: Best Santana on 08-22-2024 [place] IgE Qn (S) <0.10 kU/L Class 0 [facility] Serum dog epithelium IgE ant ibody assay (units/volume)Ordered By: Best Santana on 08-22-2024 Dog epithelium IgE Qn (S) <0.10 kU/L Class 0 [facility] Serum mountain cedar specifi c IgE antibody assayOrdered By: Best Santana on 08-22-2024 Mountain Juniper IgE Qn (S) <0.10 kU/L Class 0 [facility] Serum perinuclear neutrophil cytoplasmic antibody titer by immunofluorescenceOrdered By: Best Santana on 08-22-2024 Neutrophil cytoplasmic Ab.perinuclear IF (S) [Titer] <1:20 titer Neg:<1:20 [facility] Comment on above: The presence of posi tive fluorescence exhibiting P-ANCA orC-ANCA patterns alone is not specific for the diagnosis ofWegener's Granulomatosis (WG) or microscopic polyangiitis.Decisions about treatment should not be based solely onANCA IFA results. The International ANCA Group Consensusrecommends follow up testing of positive sera with both DE-3 and MPO-ANCA enzyme immunoassays. As many as 5% serumsamples are positive only by EIA. Ref. AM J Clin Oxwubg6776;111:507-513. Serum francia IgE antibody a ssay (units/volume)Ordered By: Best Santana on 08-22-2024 Francia IgE Qn (S) <0.10 kU/L Class 0 [facility] Serum white elm IgE antibody assay (units/volume)Ordered By: Best Santana on 08-22-2024 White [place]m IgE Qn (S) <0.10 kU/L Class 0 [facility] Serum white mulberry IgE ant ibody assay (units/volume)Ordered By: Best Santana on 08-22-2024 White mulberry IgE Qn (S) <0.10 kU/L Class 0 [facility] White blood cell (WBC) count Ordered By: Best Santana on 08-22-2024 WBC (Bld) [#/Vol] 4.7 10*3/uL 4.4-11.0 [facility] Misc.on 08-11-2024 [facility] Misc. COMMENT Normal . [facility] Comment on above: Order Comment: Order Date: 12/01/23 Order Info: [id number] - LIPID Order Info: [id number] - TSH Result Comment: Test Ordered: [id number] Anti-Sm Ab (RDL) Anti-Sm Ab (RDL) <20 Units ESECF Reference Range: <20 Negative: <20 Weak Positive: 20-39 Moderate Positive: 40-80 Strong Positive: >80 Performed at: [facility] [address] [place] [id number] Home Care Companion: Paul Louis MD, Phone: [phone] Performed at: [facility] [id number] Home Care Companion: Ezekiel Murillo PhD, Phone: [phone] Performed By: #### L 4500.0100, L3100.7950, L3410.9998, L506.1001, L3100.5475, L101.9900, L501.6710 #### [facility] [address] [place], [place], [id number] Lupus Anticoagulant Compon 0 08-09-2024 aPTT Coag (Bld) [Time] 45.0 s High 0.0-43.5 [facility] Comment on above: Performed By: #### L 4500.0100, L3100.7950, L3410.9998, L506.1001, L3100.5475, L101.9900, L501.6710 #### [facility] [address] [place], [place], [id number] aPTT Coag (Bld) [Time] 42.7 s High 0.0-40.5 [facility] Comment on above: Performed By: #### L 4500.0100, L3100.7950, L3410.9998, L506.1001, L3100.5475, L101.9900, L501.6710 #### [facility] [address] [place], [place], [id number] DILUTE PT (dPT) 36.2 sec Normal 0.0-47.6 [facility] Comment on above: Performed By: #### L 4500.0100, L3100.7950, L3410.9998, L506.1001, L3100.5475, L101.9900, L501.6710 #### [facility] [address] [place], [place], [id number] (227) dPT Conf. Ratio 1.12 Ratio Normal 0.00-1.34 [facility] Comment on above: Performed By: #### L 4500.0100, L3100.7950, L3410.9998, L506.1001, L3100.5475, L101.9900, L501.6710 #### [facility] [address] [place], [address] DRVVT 37.9 sec Normal 0.0-47.0 [facility] Comment on above: Performed By: #### L 4500.0100, L3100.7950, L3410.9998, L506.1001, L3100.5475, L101.9900, L501.6710 #### [facility] [address] [place], [address] HEX PHAS PHOSPH 13 sec Abnormal 0-11 [facility] Comment on above: Performed By: #### L 4500.0100, L3100.7950, L3410.9998, L506.1001, L3100.5475, L101.9900, L501.6710 #### [facility] [address] [place], [place], [id number] Interpretation Comment: Normal . [facility] Comment on above: Result Comment: Resu lts are consistent with the presence of a lupus anticoagulant. As only persistent lupus anticoagulant (LA) positivity meets laboratory diagnostic criteria for antiphospholipid syndrome, repeat testing in 12 or more weeks is recommended, ideally in the absence of anticoagulant therapy. Important Note: The results of LA testing are not valid for patients receiving heparin, direct Xa inhibitor (e.g., rivaroxaban, apixaban) or direct thrombin inhibitor (e.g., dabigatran) therapy. These drugs may cause false positive LA results but will not interfere with anticardiolipin and beta-2 glycoprotein 1 antibody testing. Performed at: [address] [id number] Home Care Companion: Benjie Zaman MD, Phone: [phone] Performed By: #### L 4500.0100, L3100.7950, L3410.9998, L506.1001, L3100.5475, L101.9900, L501.6710 #### [facility] [address] [place], [address] THROMBIN TIME 18.9 sec Normal 0.0-23.0 [facility] Comment on above: Performed By: #### L 4500.0100, L3100.7950, L3410.9998, L506.1001, L3100.5475, L101.9900, L501.6710 #### [facility] [address] [place], [place], [id number] ANTINUCLEAR ANTIBODIES DIREC Ton 08-08-2024 ALBERTINA,DIRECT Positive Abnormal Negative [facility] Comment on above: Performed By: #### L 4500.0100, L3100.7950, L3410.9998, L506.1001, L3100.5475, L101.9900, L501.6710 #### [facility] [address] [place], [place], [address] Antinuclear Antibody, IFAon 08-08-2024 ALBERTINA, IFA Positive Abnormal . [facility] Comment on above: Result Comment: Nega tive <1:80 Borderline 1:80 Positive >1:80 Performed By: #### L 4500.0100, L3100.7950, L3410.9998, L506.1001, L3100.5475, L101.9900, L501.6710 #### [facility] [address] [place], [place], [address] ALBERTINA-NOTE Comment Normal . [facility] Comment on above: Result Comment: Bianka abreu Potential Disease Association Homogeneous Systemic Lupus Erythematosus, Drug Induced Systemic Lupus Erythematosus, Chronic Autoimmune hepatitis, Juvenile Idiopathic Arthritis Speckled Sjogren Syndrome, Systemic Lupus Erythematosus, Subacute Cutaneous Lupus, Lupus, Congenital Heart Block, Mixed Connective Tissue Disease, Scleroderma-diffuse, Scleroderma-Autoimmune Myositis Overlap Syndrome, Systemic Lupus Gvtkdeesegfem-Imgerxmwgjs-Tzgdakwktr Myositis Overlap Syndrome, Systemic Autoimmune Rheumatic Disease, Undifferentiated Connective Tissue Disease Nucleolar Systemic Sclerosis, Scleroderma-Autoimmune Myositis Overlap Syndrome, Sjogren Syndrome, Raynaud phenomenon, Pulmonary Arterial Hypertension, Systemic Autoimmune Rheumatic Disease, Cancer Centromere Scleroderma-CREST, Limited Cutaneous SSc, Raynaud's Phenomenon, Primary Biliary Cholangitis Nuclear Dot Primary Biliary Cholangitis Nuclear Primary Biliary Cholangitis, Autoimmune Membrane Hepatitis/Liver disease, Systemic Autoimmune Rheumatic Disease, Autoimmune Cytopenias, Linear Scleroderma, Antiphospholipid Syndrome Performed at: [address] [id number] Home Care Companion: Ezekiel Murillo PhD, Phone: [phone] Performed By: #### L 4507.1963, L3100.7950, L3410.9998, L506.1001, L3100.5475, L101.9900, L501.6710 #### [facility] [address] [place], [address] CENTRIOLE TNP Normal . [facility] Comment on above: Performed By: #### L 4500.0100, L3100.7950, L3410.9998, L506.1001, L3100.5475, L101.9900, L501.6710 #### [facility] [address] [place], [address] CENTROMERE PAT. TNP Normal . [facility] Comment on above: Performed By: #### L 4500.0100, L3100.7950, L3410.9998, L506.1001, L3100.5475, L101.9900, L501.6710 #### [facility] [address] [place], [address] HOMOGENEOUS PAT 1:1280 Abnormal . [facility] Comment on above: Result Comment: ICAP nomenclature: AC-1 Performed By: #### L 4500.0100, L3100.7950, L3410.9998, L506.1001, L3100.5475, L101.9900, L501.6710 #### [facility] [address] [place], [address] MIDBODY TNP Normal . [facility] Comment on above: Performed By: #### L 4500.0100, L3100.7950, L3410.9998, L506.1001, L3100.5475, L101.9900, L501.6710 #### [facility] [address] [place], [address] NUCLEAR DOT TNP Normal . [facility] Comment on above: Performed By: #### L 4500.0100, L3100.7950, L3410.9998, L506.1001, L3100.5475, L101.9900, L501.6710 #### [facility] [address] [place], [address] NUCLEAR MEMBRAN TNP Normal . [facility] Comment on above: Performed By: #### L 4500.0100, L3100.7950, L3410.9998, L506.1001, L3100.5475, L101.9900, L501.6710 #### [facility] [address] [place], [address] NUCLEOLAR PAT. TNP Normal . [facility] Comment on above: Performed By: #### L 4500.0100, L3100.7950, L3410.9998, L506.1001, L3100.5475, L101.9900, L501.6710 #### [facility] [address] [place], [address] PNCA TNP Normal . [facility] Comment on above: Performed By: #### L 4500.0100, L3100.7950, L3410.9998, L506.1001, L3100.5475, L101.9900, L501.6710 #### [facility] [address] [place], [address] SPECKLED PAT. TNP Normal . [facility] Comment on above: Performed By: #### L 4500.0100, L3100.7950, L3410.9998, L506.1001, L3100.5475, L101.9900, L501.6710 #### [facility] [address] [place], [address] SPINDLE APPARAT TNP Normal . [facility] Comment on above: Performed By: #### L 4500.0100, L3100.7950, L3410.9998, L506.1001, L3100.5475, L101.9900, L501.6710 #### [facility] [address] [place], [place], [id number] [facility].on 08-08-2024 [facility]. COMMENT Normal . [facility] Comment on above: Order Comment: [id number] ANTI PRECIOUS 1 Result Comment: Test Ordered: [id number] Anti-Precious-1 Anti-Precious-1 <0.2 AI CB Reference Range: 0.0-0.9 Performed at: [address] [id number] Home Care Companion: Ezekiel Murillo PhD, Phone: [phone] Performed By: #### L 4500.0100, L3100.7950, L3410.9998, L506.1001, L3100.5475, L101.9900, L501.6710 #### [facility] [address] [place], [address] [facility]. COMMENT Normal . [facility] Comment on above: Order Comment: [id number] 5ANTI SCLERODERMA 70 AB Result Comment: Test Ordered: [id number] Antiscleroderma-70 Antibodies Antiscleroderma-70 Antibodies <0.2 AI CB Reference Range: 0.0-0.9 Performed at: [address] [id number] Home Care Companion: Ezekiel Murillo PhD, Phone: [phone] Performed By: #### L 4500.0100, L3100.7950, L3410.9998, L506.1001, L3100.5475, L101.9900, L501.6710 #### [facility] [address] [place], [address] Antinuclear antibody (ALBERTINA) a ssayOrdered By: Sabi Arnett on 08-06-2024 Anti-Nuclear Antibody Screen Positive High . [facility] Comment on above: *Additional results available. Contact laboratory/see report* Negative <1:80 Borderline 1:80 Positive >1:80 CRPon 08-06-2024 C-REACTIVE PROT 5.33 mg/L High 0.0-3.0 [facility] Comment on above: Order Comment: Order Date: 12/01/23 Order Info: [id number] - LIPID Order Info: [id number] - TSH Performed By: #### L 4500.0100, L3100.7950, L3410.9998, L506.1001, L3100.5475, L101.9900, L501.6710 #### [facility] [address] [place], [place], [id number] CRP [Mass/Vol]Ordered By: Holger Arnett on 08-06-2024 C-Reactive Protein Extended Range 5.33 mg/L High 0.0-3.0 [facility] Calculated very low density lipoprotein (VLDL) cholesterol measurementOrdered By: Sabi Arnett on 08-06-2024 Calculated very low density lipoprotein (VLDL) cholesterol measurement 37 mg/dL 5-40 [facility] VLDL Cholesterol 37 mg/dL 5-40 [facility] Centromere pattern antinucle ar antibody (ALBERTINA) detectionOrdered By: Sabi Arnett on 08-06-2024 Centrosomal nuclear Ab pattern IF Ql (S) [facility] Comment on above: Test not performed Centrosomal nuclear Ab patte rn IF Ql (S)Ordered By: Sabi Arnett on 08-06-2024 Anti-Nuclear Ab Centromere Pattern [facility] Comment on above: Test not performed Dilute Les's viper venom timeOrdered By: Sabi Arnett on 08-06-2024 dRVVT Coag (PPP) [Time] 37.9 s 0.0-47.0 [facility] Dilute prothrombin time rati o confirmationOrdered By: Sabi Arnett on 08-06-2024 Prothrombin Time Ratio 1.12 Ratio 0.00-1.34 [facility] Erythrocyte Sed Rateon 08-06 SED RATE 10 mm/hr Normal 0-30 [facility] Comment on above: Performed By: #### L 4500.0100, L3100.7950, L3410.9998, L506.1001, L3100.5475, L101.9900, L501.6710 #### [facility] [address] [place], [address] Erythrocyte sedimentation ra teOrdered By: Sabi Arnett on 08-06-2024 ESR (Bld) [Velocity] 10 mm/h 0-30 [facility] Interpretation of lupus anti coagulant assayOrdered By: Sabi Arnett on 08-06-2024 Lupus Anticoagulant Interpretation Comment: . [facility] Comment on above: Results are consiste nt with the presence of a lupus anticoagulant. As onlypersistent lupus anticoagulant (LA) positivity meets laboratory diagnosticcriteria for antiphospholipid syndrome, repeat testing in 12 or more weeksis recommended, ideally in the absence of anticoagulant therapy.Important Note: The results of LA testing are not valid for patientsreceiving heparin, direct Xa inhibitor (e.g., rivaroxaban, apixaban) ordirect thrombin inhibitor (e.g., dabigatran) therapy. These drugs may causefalse positive LA results but will not interfere with anticardiolipin andbeta-2 glycoprotein 1 antibody testing.Performed at: [facility] [id number] Director: Benjie Zaman MD, Phone: [phone] LDL calc ser/plasOrdered By: Sabi Arnett on 08-06-2024 Cholesterol in LDL [Mass/Vol] 128 mg/dL [facility] Comment on above: Aopjrupwni=841-464 m g/dL & Higher Tcgt=503 mg/dL or greater LDL Cholesterol, Calculated 128 mg/dL [facility] Comment on above: Mdwocecaka=855-314 m g/dL & Higher Iodf=879 mg/dL or greater Lipid Profileon 08-06-2024 CHOL:HDL 3.49 Normal [facility] Comment on above: Order Comment: Order Date: 12/01/23 Order Info: [id number] - LIPID Order Info: [id number] - TSH Performed By: #### L 501.9520, L500.4100 #### [facility] [address] [place], [place], [address] Cholesterol [Mass/Vol] 230 mg/dL High <=200 [facility] Comment on above: Order Comment: Order Date: 12/01/23 Order Info: [id number] - LIPID Order Info: [id number] - TSH Result Comment: Chol esterol level, Desirable <200 mg/dL Borderline high cholesterol 200-239 mg/dL High cholesterol >=240 mg/dL Recommendations of the NCEP Adult Treatment Panel for the following risk-cutoff thresholds for the [place] Citizen [place] population. Performed By: #### L 501.9520, L500.4100 #### [facility] [address] [place], [address] Cholesterol in HDL [Mass/Vol] 66 mg/dL Normal [facility] Comment on above: Order Comment: Order Date: 12/01/23 Order Info: [id number] - LIPID Order Info: [id number] - TSH Result Comment: [place] on[place] Cholesterol Education Program (NCEP) guidelines: <40 mg/dL: Low HDL-cholesterol (major risk factor for CHD) >= 60 mg/dL: High HDL-cholesterol (negative risk factor for CHD) HDL-cholesterol is affected by a number of factors, e.g. smoking, exercise, hormones, sex and age. Performed By: #### L 501.9520, L500.4100 #### [facility] [address] [place], [address] Cholesterol in LDL [Mass/Vol] 128 mg/dL Normal [facility] Comment on above: Order Comment: Order Date: 12/01/23 Order Info: [id number] - LIPID Order Info: [id number] - TSH Result Comment: Bord hfuwss=734-145 mg/dL Higher Ssuz=251 mg/dL or greater Performed By: #### L 501.9520, L500.4100 #### [facility] [address] [place], [address] Cholesterol in VLDL [Mass/Vol] 37 mg/dL Normal 5-40 [facility] Comment on above: Order Comment: Order Date: 12/01/23 Order Info: [id number] - LIPID Order Info: [id number] - TSH Performed By: #### L 501.9520, L500.4100 #### [facility] [address] [place], [place], [address] Triglyceride [Mass/Vol] 183 mg/dL Normal [facility] Comment on above: Order Comment: Order Date: 12/01/23 Order Info: [id number] - LIPID Order Info: [id number] - TSH Result Comment: The drugs N-Acetylcysteine and Metamizole may falsely depress this assay. Normal range: <150 mg/dL Borderline High: 150-199 mg/dL High: 200-499 mg/dL Very High: >500 mg/dL Performed By: #### L 501.9520, L500.4100 #### [facility] [address] [place], [place], [address] Lupus anticoagulant neutrali zation dilute phospholipid time in platelet poor plasmaOrdered By: aSbi Arnett on 08-06-2024 Prothrombin Time Diluted 36.2 sec 0.0-47.6 [facility] Lupus anticoagulant-sensitiv e activated partial thromboplastin timeOrdered By: Sabi Arnett on 08-06-2024 Lupus Anticoag PTT Mix/Correction 42.7 sec High 0.0-40.5 [facility] Lupus Anticoagulant APTT 45.0 sec High 0.0-43.5 [facility] Midbody Ab IF (S) [Titer]Ord ered By: Sabi Arnett on 08-06-2024 Anti-Nuclear Ab Midbody Pattern [facility] Comment on above: Test not performed Mitotic spindle apparatus Ab [Titer]Ordered By: Sabi Arnett on 08-06-2024 ALBERTINA Spindle Apparatus Pattern [facility] Comment on above: Test not performed Multiple nuclear dots nuclea r IgG pattern IF (S) [Titer]Ordered By: Sabi Arnett on 08-06-2024 Anti-Nuclear Ab Nuclear Dot Pattern [facility] Comment on above: Test not performed No Panel InformationOrdered By: Sabi Arnett on 08-06-2024 Anti-Nuclear Antibody Comment 2 Comment . [facility] Comment on above: Pattern Potential Di sease Association Homogeneous Systemic Lupus Erythematosus, Drug Induced Systemic Lupus Erythematosus, Chronic Autoimmune hepatitis, Juvenile Idiopathic Arthritis Speckled Sjogren Syndrome, Systemic Lupus Erythematosus, Subacute Cutaneous Lupus, Lupus, Congenital Heart Block, Mixed Connective Tissue Disease, Scleroderma-diffuse, Scleroderma-Autoimmune Myositis Overlap Syndrome, Systemic Lupus Jfqtynmkqedym-Fbddkjpjntx-Egnecqcxeh Myositis Overlap Syndrome, Systemic Autoimmune Rheumatic Disease, Undifferentiated Connective Tissue Disease Nucleolar Systemic Sclerosis, Scleroderma-Autoimmune Myositis Overlap Syndrome, Sjogren Syndrome, Raynaud phenomenon, Pulmonary Arterial Hypertension, Systemic Autoimmune Rheumatic Disease, Cancer Centromere Scleroderma-CREST, Limited Cutaneous SSc, Raynaud's Phenomenon, Primary Biliary Cholangitis Nuclear Dot Primary Biliary Cholangitis Nuclear Primary Biliary Cholangitis, AutoimmuneMembrane Hepatitis/Liver disease, Systemic Autoimmune Rheumatic Disease, Autoimmune Cytopenias, Linear Scleroderma, Antiphospholipid Syndrome Performed at: [facility] [employer] [id number] Director: Ezekiel Murillo PhD, Phone: [phone] Nuclear membrane pores nucle ar Ab pattern IF Ql (S)Ordered By: Sabi Arnett on 08-06-2024 ALBERTINA Nuclear Membrane Pattern [facility] Comment on above: Test not performed Nucleolar nuclear Ab pattern (S) [Titer]Ordered By: Sabi Arnett on 08-06-2024 Anti-Nuclear Ab Nucleolar Pattern [facility] Comment on above: Test not performed PCNA extractable nuclear Ab IF (S) [Titer]Ordered By: Sabi Arnett on 08-06-2024 Anti-Nuclear Ab PCNA Pattern [facility] Comment on above: Test not performed Plasma lupus anticoagulant d etection by hexagonal phase phospholipid neutralizationOrdered By: Sabi Arnett on 08-06-2024 aPTT W excess hexagonal phase phospholipid Ql (PPP) 13 sec High 0-11 [facility] Rim nuclear Ab pattern (S) [ Titer]Ordered By: Sabi Arnett on 08-06-2024 Anti-Nuclear Ab Homogeneous Pattern 1:1280 High . [facility] Comment on above: ICAP nomenclature: A C-1 Screening total cholesterol/ high density lipoprotein (HDL) cholesterol ratioOrdered By: Sabi Arnett on 08-06-2024 Cholesterol.total/Cholester ol in HDL [Mass ratio] 3.49 {ratio} [facility] Serum antinuclear antibody ( ALBERTINA) detection with nuclear membrane pores pattern by immOrdered By: Sabi Arnett on 08-06-2024 Nuclear membrane pores nuclear Ab pattern IF Ql (S) [facility] Comment on above: Test not performed Serum centriole antibody tit er by immunofluorescenceOrdered By: Sabi Arnett on 08-06-2024 Anti-Nuclear Ab Centriole Pattern [facility] Comment on above: Test not performed Serum midbody antibody titer by immunofluorescenceOrdered By: Sabi Arnett on 08-06-2024 Midbody Ab IF (S) [Titer] [facility] Comment on above: Test not performed Serum multiple nuclear dot p attern antinuclear IgG antibody (ALBERTINA) titer by immunofluoOrdered By: Sabi Arnett on 08-06-2024 Multiple nuclear dots nuclear IgG pattern IF (S) [Titer] [facility] Comment on above: Test not performed Serum nucleolar nuclear anti body pattern titerOrdered By: Sabi Arnett on 08-06-2024 Nucleolar nuclear Ab pattern (S) [Titer] [facility] Comment on above: Test not performed Serum or plasma C reactive p rotein measurement (mass/volume)Ordered By: Sabi Arnett on 08-06-2024 CRP [Mass/Vol] 5.33 mg/L High 0.0-3.0 [facility] Serum or plasma cholesterol in HDL measurement (mass/volume)Ordered By: Sabi Arnett on 08-06-2024 Cholesterol in HDL [Mass/Vol] 66 mg/dL >40 [facility] Comment on above: National Cholesterol Education Program (NCEP) guidelines:<40 mg/dL: Low HDL-cholesterol (major risk factor for CHD)>= 60 mg/dL: High HDL-cholesterol (negative risk factor for CHD)HDL-cholesterol is affected by a number of factors, e.g. smoking, exercise, hormones, sex and age. Serum or plasma cholesterol measurement (mass/volume)Ordered By: Sabi Arnett on 08-06-2024 Cholesterol [Mass/Vol] 230 mg/dL High <201 [facility] Comment on above: Cholesterol level, D esirable <200 mg/dLBorderline high cholesterol 200-239 mg/dLHigh cholesterol >=240 mg/dLRecommendations of the NCEP Adult Treatment Panel for the following risk-cutoff thresholds for the [place] Citizen [place] population. Serum or plasma mitotic spin dle apparatus antibody titerOrdered By: Sabi Arnett on 08-06-2024 Mitotic spindle apparatus Ab [Titer] [facility] Comment on above: Test not performed Serum proliferating cell nuc lear antigen (PCNA) antibody titer by immunofluorescenceOrdered By: Sabi Arnett on 08-06-2024 PCNA extractable nuclear Ab IF (S) [Titer] [facility] Comment on above: Test not performed Serum smooth nuclear envelop e pattern antinuclear antibody (ALBERTINA) titerOrdered By: Sabi Arnett on 08-06-2024 Rim nuclear Ab pattern (S) [Titer] 1:1280 High . [facility] Comment on above: ICAP nomenclature: A C-1 Serum speckled pattern antin uclear antibody (ALBERTINA) titerOrdered By: Sabi Arnett on 08-06-2024 Speckled nuclear Ab [facility] (S) [facility]Titer] [facility] on above: Test not performed Speckled nuclear Ab pattern (S) [Titer]Ordered By: Sabi Arnett on 08-06-2024 Anti-Nuclear Ab Atyp Speckled [facility] Comment on above: Test not performed TSH DL <= 0.005 mIU/L QnOrde red By: Sabi Arnett on 08-06-2024 Thyroid Stimulating Hormone (TSH) 1.240 uIU/mL 0.300-4.200 [facility] TSH Qn 1.240 uIU/mL 0.300-4.200 [facility] Thrombin timeOrdered By: Rakel Arnett on 08-06-2024 Thrombin time Coag (PPP) [Time] 18.9 sec 0.0-23.0 [facility] Thrombin time Coag (PPP) [Ti me]Ordered By: Sabi Arnett on 08-06-2024 Thrombin Time 18.9 sec 0.0-23.0 [facility] Thyroid Stim Hormone (TSH)on 08-06-2024 TSH 1.240 uIU/mL Normal 0.300-4.200 [facility] Comment on above: Order Comment: Order Date: 12/01/23 Order Info: [id number] - LIPID Order Info: [id number] - TSH Performed By: #### L 501.9520, L500.4100 #### [facility] [address] [place], [place] [address]all janie. [place], [place], [id number] Triglycerides measurementOrd ered By: Sabi Arnett on 08-06-2024 Triglyceride [Mass/Vol] 183 mg/dL <199 [facility] Comment on above: The drugs N-Acetylcy steine and Metamizole may falsely depress this assay. Normal range: <150 mg/dLBorderline High: 150-199 mg/dLHigh: 200-499 mg/dLVery High: >500 mg/dL Vitamin D, 25-hydroxyOrdered By: Sabi Arnett on 08-06-2024 Vitamin D 25-Hydroxy 26.2 ng/mL Low 30-100 [facility] Comment on above: Vitamin D StatusDefi ciency: <20 ng/mL (50nmol/L)Insufficiency: 20-30 ng/mL (50-75 nmol/L)Sufficiency: 30-100 ng/mL (75-250 nmol/L)Toxicity: >100 ng/mL (>250 nmol/L) Vitamin D,25 Hydroxyon 08-06 Vitamin D 25-OH 26.2 ng/mL Low 30-100 [facility] Comment on above: Order Comment: Order Date: 12/01/23 Order Info: [id number] - LIPID Order Info: [id number] - TSH Result Comment: Michelle min D Status Deficiency: <20 ng/mL (50nmol/L) Insufficiency: 20-30 ng/mL (50-75 nmol/L) Sufficiency: 30-100 ng/mL (75-250 nmol/L) Toxicity: >100 ng/mL (>250 nmol/L) Performed By: #### L 4500.0100, L3100.7950, L3410.9998, L506.1001, L3100.5475, L101.9900, L501.6710 #### [facility] [address] [place], [place], [address] aPTT W excess hexagonal phas e phospholipid Ql (PPP)Ordered By: Sabi Arnett on 08-06-2024 Hexagonal Phase Phospholipid 13 sec High 0-11 [facility] dRVVT Coag (PPP) [Time]Order ed By: Sabi Arnett on 08-06-2024 Dilute Les Viper Venom (Lupus) 37.9 sec 0.0-47.0 [facility] Allergen, Food Profileon CLAM <0.10 Normal Class 0 [facility] Comment on above: Performed By: #### L 4500.0100, L3100.7950, L3410.9998, L506.1001, L3100.5475, L101.9900, L501.6710 #### [facility] [address] [place], [place], [id number] CODFISH <0.10 Normal Class 0 [facility] Comment on above: Performed By: #### L 4500.0100, L3100.7950, L3410.9998, L506.1001, L3100.5475, L101.9900, L501.6710 #### [facility] [address] [place], [place], [id number] COMMENT Comment Normal . [facility] Comment on above: Result Comment: Lisbeth horne of Specific IgE Class Description of Class ----- < 0.10 0 Negative 0.10 - 0.31 0/I Equivocal/Low 0.32 - 0.55 I Low 0.56 - 1.40 II Moderate 1.41 - 3.90 III High 3.91 - 19.00 IV Very High 19.01 - 100.00 V Very High >100.00 Very High Performed By: #### L 4500.0100, L3100.7950, L3410.9998, L506.1001, L3100.5475, L101.9900, L501.6710 #### [facility] [address] [place], [place], [id number] CORN <0.10 Normal Class 0 [facility] Comment on above: Performed By: #### L 4500.0100, L3100.7950, L3410.9998, L506.1001, L3100.5475, L101.9900, L501.6710 #### [facility] [address] [place], [place], [id number] EGG, WHITE <0.10 Normal Class 0 [facility] Comment on above: Performed By: #### L 4500.0100, L3100.7950, L3410.9998, L506.1001, L3100.5475, L101.9900, L501.6710 #### [facility] [address] [place], [address] MILK (COW) <0.10 Normal Class 0 [facility] Comment on above: Performed By: #### L 4500.0100, L3100.7950, L3410.9998, L506.1001, L3100.5475, L101.9900, L501.6710 #### [facility] [address] [place], [address] PEANUT <0.10 Normal Class 0 [facility] Comment on above: Performed By: #### L 4500.0100, L3100.7950, L3410.9998, L506.1001, L3100.5475, L101.9900, L501.6710 #### [facility] [address] [place], [address] SCALLOP <0.10 Normal Class 0 [facility] Comment on above: Performed By: #### L 4500.0100, L3100.7950, L3410.9998, L506.1001, L3100.5475, L101.9900, L501.6710 #### [facility] [address] [place], [address] SESAME SEED <0.10 Normal Class 0 [facility] Comment on above: Result Comment: Perf ormed at: [facility] [address] [id number] Home Care Companion: Benjie Zaman MD, Phone: [phone] Performed By: #### L 4500.0100, L3100.7950, L3410.9998, L506.1001, L3100.5475, L101.9900, L501.6710 #### [facility] [address] [place], [address] SHRIMP <0.10 Normal Class 0 [facility] Comment on above: Performed By: #### L 4500.0100, L3100.7950, L3410.9998, L506.1001, L3100.5475, L101.9900, L501.6710 #### [facility] [address] [place], [address] SOYBEAN <0.10 Normal Class 0 [facility] Comment on above: Performed By: #### L 4500.0100, L3100.7950, L3410.9998, L506.1001, L3100.5475, L101.9900, L501.6710 #### [facility] [address] [place], [address] WALNUT,(Food) <0.10 Normal Class 0 [facility] Comment on above: Performed By: #### L 4500.0100, L3100.7950, L3410.9998, L506.1001, L3100.5475, L101.9900, L501.6710 #### [facility] [address] [place], [address] WHEAT <0.10 Normal Class 0 [facility] Comment on above: Performed By: #### L 4500.0100, L3100.7950, L3410.9998, L506.1001, L3100.5475, L101.9900, L501.6710 #### [facility] [address] [place], [address] Bilirubin directOrdered By: Ezekiel Love on 07-08-2024 Bilirubin.direct [Mass/Vol] 0.10 mg/dL 0.00-0.3 0 [facility] Bilirubin, totalOrdered By: zEekiel Love on 07-08-2024 Bilirubin [Mass/Vol] 0.24 mg/dL 0.00-1.30 [facility] Black Antonito IgE Qn (S)Order ed By: Ezekiel Love on 07-08-2024 Antonito Allergen <0.10 kU/L Class 0 [facility] CBC-Complete Blood Cnt No Di ffon 07-08-2024 Erythrocyte distribution width (RBC) [Ratio] 13.8 % Normal 11.6-14.6 [facility] Comment on above: Performed By: #### L 501.9520, L500.4100 #### [facility] [address] [place], [address] Hematocrit (Bld) [Volume fraction] 38.5 % Normal 37-47 [facility] Comment on above: Performed By: #### L 501.9520, L500.4100 #### [facility] [address] [place], [address] Hemoglobin (Bld) [Mass/Vol] 12.8 g/dL Normal 12.0-15. 0 [facility] Comment on above: Performed By: #### L 501.9520, L500.4100 #### [facility] [address] [place], [address] MCH (RBC) [Entitic mass] 27.9 pg Normal 27.0-32.0 [facility] Comment on above: Performed By: #### L 501.9520, L500.4100 #### [facility] [address] [place], [address] MCHC (RBC) [Mass/Vol] 33.2 g/dL Normal 32-36 [facility] Comment on above: Performed By: #### L 501.9520, L500.4100 #### [facility] [address] [place], [address] MCV (RBC) [Entitic vol] 84.1 fL Normal 81-99 [facility] Comment on above: Performed By: #### L 501.9520, L500.4100 #### [facility] [address] [place], [address] Platelet mean volume (Bld) [Entitic vol] 8.9 fL Normal 6.2-12.0 [facility] Comment on above: Performed By: #### L 501.9520, L500.4100 #### [facility] [address] [place], [address] Platelets (Bld) [#/Vol] 331 10*3/uL Normal 150-450 [facility] Comment on above: Performed By: #### L 501.9520, L500.4100 #### [facility] [address] [place], [address] RBC (Bld) [#/Vol] 4.58 10*6/uL Normal 4.2-5.4 [facility] Comment on above: Performed By: #### L 501.9520, L500.4100 #### [facility] [address] [place], [address] RDW SD 42.2 fl Normal 35.1-43.9 [facility] Comment on above: Performed By: #### L 501.9520, L500.4100 #### [facility] [address] [place], [address] WBC (Bld) [#/Vol] 6.2 10*3/uL Normal 4.4-11.0 [facility] Comment on above: Performed By: #### L 501.9520, L500.4100 #### [facility] [address] [place], [address] CRPon 07-08-2024 C-REACTIVE PROT 6.82 mg/L High 0.0-3.0 [facility] Comment on above: Performed By: #### L 4500.0100, L3100.7950, L3410.9998, L506.1001, L3100.5475, L101.9900, L501.6710 #### [facility] [address] [place], [address] CRP [Mass/Vol]Ordered By: Viktoriya Love on 07-08-2024 C-Reactive Protein Extended Range 6.82 mg/L High 0.0-3.0 [facility] Clam IgE Qn (S)Ordered By: Nighat Love on 07-08-2024 Clam Allergen (RAST) <0.10 kU/L Class 0 [facility] Codfish IgE Qn (S)Ordered By : Ezekiel Love on 07-08-2024 Codfish Allergen (RAST) <0.10 kU/L Class 0 [facility] [place] IgE Qn (S)Ordered By: Nighat Love on 07-08-2024 [place] Allergen (RAST) <0.10 kU/L Class 0 [facility] Cow milk IgE Qn (S)Ordered B y: Ezekiel Love on 07-08-2024 Cow's Milk Allergen <0.10 kU/L [facility] Egg white IgE Qn (S)Ordered By: Ezekiel Love on 07-08-2024 Egg White Allergen (RAST) <0.10 kU/L Class 0 [facility] Erythrocyte distribution wid th ratioOrdered By: Ezekiel Love on 07-08-2024 Erythrocyte distribution width (RBC) [Ratio] 13.8 % 11.6-14.6 [facility] Erythrocyte distribution wid th standard deviationOrdered By: Ezekiel Love on 07-08-2024 Erythrocyte distribution width (RBC) [Entitic vol] 42.2 fL 35.1-43.9 [facility] Erythrocyte distribution width (RBC) [Ratio] 42.2 fl 35.1-43.9 [facility] Hematocrit Auto (Bld) [Volum e fraction]Ordered By: Ezekiel Love on 07-08-2024 Hematocrit (Bld) [Volume fraction] 38.5 % 37-47 [facility] Hemoglobin measurementOrdere d By: Ezekiel Love on 07-08-2024 Hemoglobin (Bld) [Mass/Vol] 12.8 g/dL 12.0-15. 0 [facility] - Chemistry and C hemistry - challengeOrdered By: Ezekiel Love on 07-08-2024 AST [Catalytic activity/Vol] 23 U/L <32 [facility] - Miscellaneous t estsOrdered By: Ezekiel Love on 07-08-2024 Service comment (Unsp spec) [Interp] Comment . [facility] Comment on above: Levels of Specific I gE Class Description of Class ----- < 0.10 0 Negative 0.10 - 0.31 0/I Equivocal/Low 0.32 - 0.55 I Low 0.56 - 1.40 II Moderate 1.41 - 3.90 III High 3.91 - 19.00 IV Very High 19.01 - 100.00 V Very High >100.00 Very High Liver Profileon 07-08-2024 Albumin [Mass/Vol] 4.1 g/dL Normal 3.5-5.0 [facility] Comment on above: Performed By: #### L 4500.0100, L3100.7950, L3410.9998, L506.1001, L3100.5475, L101.9900, L501.6710 #### [facility] [address] [place], [address] ALK PHOS 68 U/L Normal 35-104 [facility] Comment on above: Performed By: #### L 4500.0100, L3100.7950, L3410.9998, L506.1001, L3100.5475, L101.9900, L501.6710 #### [facility] [address] [place], [address] ALT [Catalytic activity/Vol] 15 U/L Normal <=34 [facility] Comment on above: Performed By: #### L 4500.0100, L3100.7950, L3410.9998, L506.1001, L3100.5475, L101.9900, L501.6710 #### [facility] [address] [place], [address] AST [Catalytic activity/Vol] 23 U/L Normal <=31 [facility] Comment on above: Performed By: #### L 4500.0100, L3100.7950, L3410.9998, L506.1001, L3100.5475, L101.9900, L501.6710 #### [facility] [address] [place], [address] Bilirubin [Mass/Vol] 0.24 mg/dL Normal 0.00-1.30 [facility] Comment on above: Performed By: #### L 4500.0100, L3100.7950, L3410.9998, L506.1001, L3100.5475, L101.9900, L501.6710 #### [facility] [address] [place], [address] Bilirubin.direct [Mass/Vol] 0.10 mg/dL Normal 0.00-0.3 0 [facility] Comment on above: Performed By: #### L 4500.0100, L3100.7950, L3410.9998, L506.1001, L3100.5475, L101.9900, L501.6710 #### [facility] [address] [place], [address] Globulin (S) [Mass/Vol] 3.1 g/dL Normal 2.2-4.2 [facility] Comment on above: Performed By: #### L 4500.0100, L3100.7950, L3410.9998, L506.1001, L3100.5475, L101.9900, L501.6710 #### [facility] [address] [place], [address] T PROT 7.2 g/dL Normal 5.9-8.4 [facility] Comment on above: Performed By: #### L 4500.0100, L3100.7950, L3410.9998, L506.1001, L3100.5475, L101.9900, L501.6710 #### [facility] [address] [place], [address] MCV (mean corpuscular volume ) determinationOrdered By: Ezekiel Love on 07-08-2024 MCV (RBC) [Entitic vol] 84.1 fL 81-99 [facility] Mean corpuscular hemoglobin (MCH) determinationOrdered By: Ezekiel Love on 07-08-2024 MCH (RBC) [Entitic mass] 27.9 pg 27.0-32.0 [facility] Mean corpuscular hemoglobin concentration (MCHC) determinationOrdered By: Ezekiel Love on 07-08-2024 MCHC (RBC) [Mass/Vol] 33.2 g/dL 32-36 [facility] Mean platelet volume determi nationOrdered By: Ezekiel Love on 07-08-2024 Platelet mean volume (Bld) [Entitic vol] 8.9 fL 6.2-12.0 [facility] Peanut IgE Qn (S)Ordered By: Ezekiel Love on 07-08-2024 Peanut Allergen (RAST) <0.10 kU/L Class 0 [facility] Platelet countOrdered By: Viktoriya Love on 07-08-2024 Platelets (Bld) [#/Vol] 331 10*3/uL 150-450 [facility] RBC Auto (Bld) [#/Vol]Ordere d By: Ezekiel Love on 07-08-2024 RBC (Bld) [#/Vol] 4.58 10*6/uL 4.2-5.4 [facility] Scallop IgE serumOrdered By: zEekiel Love on 07-08-2024 Scallop Allergen <0.10 kU/L Class 0 [facility] Serum black walnut IgE antib gertrude assay (units/volume)Ordered By: Ezekiel Love on 07-08-2024 Black Antonito IgE Qn (S) <0.10 kU/L Class 0 [facility] Serum clam IgE antibody assa y (units/volume)Ordered By: Ezekiel Love on 07-08-2024 Clam IgE Qn (S) <0.10 kU/L Class 0 [facility] Serum codfish IgE antibody a ssay (units/volume)Ordered By: Ezekiel Love on 07-08-2024 Codfish IgE Qn (S) <0.10 kU/L Class 0 [facility] Serum corn IgE antibody assa y (units/volume)Ordered By: Ezekiel Love on 07-08-2024 [place] IgE Qn (S) <0.10 kU/L Class 0 [facility] Serum cow milk IgE antibody assay (units/volume)Ordered By: Ezekiel Love on 07-08-2024 Cow milk IgE Qn (S) <0.10 kU/L Class 0 [facility] Serum egg white IgE antibody assay (units/volume)Ordered By: Ezekiel Love on 07-08-2024 Egg white IgE Qn (S) <0.10 kU/L Class 0 [facility] Serum globulin measurementOr dered By: Ezekiel Love on 07-08-2024 Globulin (S) [Mass/Vol] 3.1 g/dL 2.2-4.2 [facility] Serum or plasma C reactive p rotein measurement (mass/volume)Ordered By: Ezekiel Love on 07-08-2024 CRP [Mass/Vol] 6.82 mg/L High 0.0-3.0 [facility] Serum or plasma alanine medeiros otransferase (ALT) measurementOrdered By: Ezekiel Love on 07-08-2024 ALT [Catalytic activity/Vol] 15 U/L <35 [facility] Serum or plasma albumin cuauhtemoc urement (mass/volume)Ordered By: Ezekiel Love on 07-08-2024 Albumin [Mass/Vol] 4.1 g/dL 3.5-5.0 [facility] Serum or plasma alkaline nazario sphatase measurementOrdered By: Ezekiel Love on 07-08-2024 ALP [Catalytic activity/Vol] 68 U/L 35-104 [facility] Serum peanut IgE antibody as say (units/volume)Ordered By: Ezekiel Love on 07-08-2024 Peanut IgE Qn (S) <0.10 kU/L Class 0 [facility] Serum shrimp specific IgE an tibody assayOrdered By: Ezekiel Love on 07-08-2024 Shrimp Allergen <0.10 kU/L Class 0 [facility] Serum soybean IgE antibody a ssay (units/volume)Ordered By: Ezekiel Love on 07-08-2024 Soybean IgE Qn (S) <0.10 kU/L Class 0 [facility] Serum wheat IgE antibody ass ay (units/volume)Ordered By: Ezekiel Love on 07-08-2024 Wheat IgE Qn (S) <0.10 kU/L Class 0 [facility] Service comment (Unsp spec) [Interp]Ordered By: Ezekiel Love on 07-08-2024 RAST Comment Comment . [facility] Comment on above: Levels of Specific I gE Class Description of Class ----- < 0.10 0 Negative 0.10 - 0.31 0/I Equivocal/Low 0.32 - 0.55 I Low 0.56 - 1.40 II Moderate 1.41 - 3.90 III High 3.91 - 19.00 IV Very High 19.01 - 100.00 V Very High >100.00 Very High Sesame seed IgE serumOrdered By: Ezekiel Love on 07-08-2024 Sesame Seed Allergen IgE Antibody <0.10 kU/L Class 0 [facility] Comment on above: Performed at: [address] [id number] Director: Benjie Zaman MD, Phone: [phone] Soybean IgE Qn (S)Ordered By : Ezekiel Love on 07-08-2024 Soybean Allergen (RAST) <0.10 kU/L Class 0 [facility] Total proteinOrdered By: Daryl Love on 07-08-2024 Protein [Mass/Vol] 7.2 g/dL 5.9-8.4 [facility] Wheat IgE Qn (S)Ordered By: Ezekiel Love on 07-08-2024 Wheat Allergen (RAST) <0.10 kU/L Class 0 [facility] White blood cell (WBC) count Ordered By: Ezekiel Love on 07-08-2024 WBC (Bld) [#/Vol] 6.2 10*3/uL 4.4-11.0 [facility] CT SINUS WO IVCONon 06-14-[address] SINUS WO IVCON * * *Final Report* * * DATE OF EXAM: Jun 14 2024 3:51PM [place] [id number] - CT SINUS WO IVCON / PROCEDURE REASON: J32.8 chronic sinusitis * * * * Physician Interpretation * * * * EXAMINATION: CT SINUS WO IVCON CLINICAL HISTORY: J32.8 chronic sinusitis TECHNIQUE: Spiral high resolution axial unenhanced CT images were obtained through the paranasal sinuses with sagittal, coronal reconstructions. MQ: CTSI_1 CT Radiation dose: Integrated Dose-Length Product (DLP) for this visit = 156 mGy*cm CT Dose Reduction Employed: Automated exposure control(AEC) and iterative recon COMPARISON: MRI pituitary 12/12/2013 RESULT: Post-Surgical Findings: None Sinus Chambers: Minimal lobular mucosal thickening in the left maxillary antrum. Clear remaining paranasal sinuses. Nasal Cavities: Visualized nasal cavities are patent. Developmental Anomalies: None Other: The mastoid air cells and middle ear cavities are clear. The soft tissues of the face and orbits are within normal limits within the limitations of the study. Temporomandibular joints are maintained. Localizer images: No additional findings. IMPRESSION: Essentially clear paranasal sinuses. Electrogalvanizing Machine Operator: LISA Transcribe Date/Time: Jun 14 2024 4:01P Dictated by : CHANDRAKANT GRANT MD This examination was interpreted and the report reviewed and electronically signed by: CHANDRAKANT GRANT MD on Jun 14 2024 4:03PM EST [id number] Normal [facility] CT Sinuses WO contraston IMPRESSION: Essentially clear paranasal sinuses. Electrogalvanizing Machine Operator: LISA Transcribe Date/Time: Jun 14 2024 4:01P Dictated by : CHANDRAKANT GRANT MD This examination was interpreted and the report reviewed and electronically signed by: CHANDRAKANT GRANT MD on Jun 14 2024 4:03PM [facility] DIVISION OF RADIOLOGY * * *Final Report* * * DATE OF EXAM: Jun 14 2024 3:51PM [place] [address] - CT SINUS WO IVCON / PROCEDURE REASON: J32.8 chronic sinusitis * * * * Physician Interpretation * * * * EXAMINATION: CT SINUS WO IVCON CLINICAL HISTORY: J32.8 chronic sinusitis TECHNIQUE: Spiral high resolution axial unenhanced CT images were obtained through the paranasal sinuses with sagittal, coronal reconstructions. MQ: CTSI_1 CT Radiation dose: Integrated Dose-Length Product (DLP) for this visit = 156 mGy*cm CT Dose Reduction Employed: Automated exposure control(AEC) and iterative recon COMPARISON: MRI pituitary 12/12/2013 RESULT: Post-Surgical Findings: None Sinus Chambers: Minimal lobular mucosal thickening in the left maxillary antrum. Clear remaining paranasal sinuses. Nasal Cavities: Visualized nasal cavities are patent. Developmental Anomalies: None Other: The mastoid air cells and middle ear cavities are clear. The soft tissues of the face and orbits are within normal limits within the limitations of the study. Temporomandibular joints are maintained. Localizer images: No additional findings. DIVISION OF RADIOLOGY Provider, [facility] - 06/14/2024 * * *Final Report* * * DATE OF EXAM: Jun 14 2024 3:51PM [place] [id number] - CT SINUS WO IVCON / PROCEDURE REASON: J32.8 chronic sinusitis * * * * Physician Interpretation * * * * EXAMINATION: CT SINUS WO IVCON CLINICAL HISTORY: J32.8 chronic sinusitis TECHNIQUE: Spiral high resolution axial unenhanced CT images were obtained through the paranasal sinuses with sagittal, coronal reconstructions. MQ: CTSI_1 CT Radiation dose: Integrated Dose-Length Product (DLP) for this visit = 156 mGy*cm CT Dose Reduction Employed: Automated exposure control(AEC) and iterative recon COMPARISON: MRI pituitary 12/12/2013 RESULT: Post-Surgical Findings: None Sinus Chambers: Minimal lobular mucosal thickening in the left maxillary antrum. Clear remaining paranasal sinuses. Nasal Cavities: Visualized nasal cavities are patent. Developmental Anomalies: None Other: The mastoid air cells and middle ear cavities are clear. The soft tissues of the face and orbits are within normal limits within the limitations of the study. Temporomandibular joints are maintained. Localizer images: No additional findings. IMPRESSION IMPRESSION: Essentially clear paranasal sinuses. Electrogalvanizing Machine Operator: LISA Transcribe Date/Time: Jun 14 2024 4:01P Dictated by : CHANDRAKANT GRANT MD This examination was interpreted and the report reviewed and electronically signed by: CHANDRAKANT GRANT MD on Jun 14 2024 4:03PM EST [facility] Radiology Study observation (narrative) [facility] CT Sinuses WO contrastOrdere d By: [facility] Provider on 06-14-2024 [facility] 12 Lead EKGon 03-26-2024 12 Lead EKG [facility] Cardiovascular Services [address] [place] [address] 12 Lead EKG 03/26/24 1224 MR#: [id number] Acct: [id number] Name: SANDRA BRADLEY Rep #: [id number] : 1970 54 From: Óscar Hurley MD Attending Dr: Dr. Saadia Lozada MD Statu s: REG CLI Ordering Dr: Saadia Lozada MD Date: 4 Location: [facility] Sex: F C Admitted: Test Reason : PRE OP Blood Pressure : */* mmHG Vent. Rate : 73 BPM Atrial Rate : 73 BPM P-R Int : 132 ms QRS Dur : 76 ms QT Int : 398 ms P-R-T Axes : 57 67 14 degrees QTcB Int : 438 ms Normal sinus rhythm Normal ECG Confirmed by Óscar Hurley ([id number]), desk editor MONET SALAZAR ([id number]) on 03/27/2024 5:49:51 AM Referred By: Saadia Lozada Confirmed By: Óscar Hurley 03/27/24 0549 Date Óscar Hurley MD CC: Dr. Sabi Arnett MD; Dr. Saadia Lozada MD Signed Normal [facility] Basic Metabolic Profile (BMP )on 03-26-2024 BUN/CRE 17.3 RATIO Normal 10-20 [facility] Comment on above: Performed By: #### L 501.9520, L500.4100 #### [facility] [address] [place], [address] CA,Total 8.9 mg/dL Normal 8.5-10.1 [facility] Comment on above: Performed By: #### L 501.9520, L500.4100 #### [facility] [address] [place], [address] Chloride [Moles/Vol] 106 mmol/L Normal 98-107 [facility] Comment on above: Performed By: #### L 501.9520, L500.4100 #### [facility] [address] [place], [address] CO2 [Moles/Vol] 26.0 mmol/L Normal 21.0-32.0 [facility] Comment on above: Performed By: #### L 501.9520, L500.4100 #### [facility] [address] [place], [address] Creatinine [Mass/Vol] 0.52 mg/dL Low 0.55-1.02 [facility] Comment on above: Result Comment: The validity of the calculated GFR GFRAA in patients over 70 years has not been determined. Clinical correlation is essential. Performed By: #### L 501.9520, L500.4100 #### [facility] [address] [place], [address] EST GFR - AA 157 mL/min Normal >60 [facility] Comment on above: Result Comment: Afri can Citizen Of [place] GFR Calc Performed By: #### L 501.9520, L500.4100 #### [facility] [address] [place], [address] GAP 6 Normal 5-15 [facility] Comment on above: Performed By: #### L 501.9520, L500.4100 #### [facility] [address] [place], [address] GFR/1.73 sq M.predicted among non-blacks MDRD (S/P/Bld) [Vol rate/Area] 130 mL/min/{1.73_m2} Normal >60 [facility] Comment on above: Result Comment: Non- GFR Calc Performed By: #### L 501.9520, L500.4100 #### [facility] [address] [place], [address] Glucose [Mass/Vol] 91 mg/dL Normal 74-106 [facility] Comment on above: Performed By: #### L 501.9520, L500.4100 #### [facility] [address] [place], [address] Potassium [Moles/Vol] 4.4 mmol/L Normal 3.5-5.1 [facility] Comment on above: Performed By: #### L 501.9520, L500.4100 #### [facility] [address] [place], [address] Sodium [Moles/Vol] 138 mmol/L Normal 136-145 [facility] Comment on above: Performed By: #### L 501.9520, L500.4100 #### [facility] [address] [place], [address] Urea nitrogen [Mass/Vol] 9 mg/dL Normal 7-18 [facility] Comment on above: Performed By: #### L 501.9520, L500.4100 #### [facility] [address] [place], [address] Blood urea nitrogen (BUN)/cr eatinine ratioOrdered By: Saadia Lozada on 03-26-2024 Urea nitrogen/Creatinine [Mass ratio] 17.3 mg/mg 02-17 [facility] CBC-Complete Blood Cnt No Di ffon 03-26-2024 Erythrocyte distribution width (RBC) [Ratio] 13.7 % Normal 11.6-14.6 [facility] Comment on above: Performed By: #### L 501.9520, L500.4100 #### [facility] [address] [place], [address] Hematocrit (Bld) [Volume fraction] 41.3 % Normal 37-47 [facility] Comment on above: Performed By: #### L 501.9520, L500.4100 #### [facility] [address] [place], [address] Hemoglobin (Bld) [Mass/Vol] 13.5 g/dL Normal 12.0-15. 0 [facility] Comment on above: Performed By: #### L 501.9520, L500.4100 #### [facility] [address] [place], [address] MCH (RBC) [Entitic mass] 28.4 pg Normal 27.0-32.0 [facility] Comment on above: Performed By: #### L 501.9520, L500.4100 #### [facility] [address] [place], [address] MCHC (RBC) [Mass/Vol] 32.7 g/dL Normal 32-36 [facility] Comment on above: Performed By: #### L 501.9520, L500.4100 #### [facility] [address] [place], [address] MCV (RBC) [Entitic vol] 86.9 fL Normal 81-99 [facility] Comment on above: Performed By: #### L 501.9520, L500.4100 #### [facility] [address] [place], [address] Platelet mean volume (Bld) [Entitic vol] 9.0 fL Normal 6.2-12.0 [facility] Comment on above: Performed By: #### L 501.9520, L500.4100 #### [facility] [address] [place], [address] Platelets (Bld) [#/Vol] 278 10*3/uL Normal 150-450 [facility] Comment on above: Performed By: #### L 501.9520, L500.4100 #### [facility] [address] [place], [address] RBC (Bld) [#/Vol] 4.75 10*6/uL Normal 4.2-5.4 [facility] Comment on above: Performed By: #### L 501.9520, L500.4100 #### [facility] [address] [place], [address] RDW SD 43.8 fl Normal 35.1-43.9 [facility] Comment on above: Performed By: #### L 501.9520, L500.4100 #### [facility] [address] [place], [address] WBC (Bld) [#/Vol] 5.7 10*3/uL Normal 4.4-11.0 [facility] Comment on above: Performed By: #### L 501.9520, L500.4100 #### [facility] [address] [place], [address] Carbon dioxide measurementOr dered By: Saadia Lozada on 03-26-2024 CO2 [Moles/Vol] 26.0 mmol/L 21.0-32.0 [facility] Chloride measurementOrdered By: Saadia Lozada on 03-26-2024 Chloride [Moles/Vol] 106 mmol/L 98-107 [facility] Erythrocyte distribution wid th ratioOrdered By: Saadia Lozada on 03-26-2024 Erythrocyte distribution width (RBC) [Ratio] 13.7 % 11.6-14.6 [facility] Erythrocyte distribution wid th standard deviationOrdered By: Saadia Lozada on 03-26-2024 Erythrocyte distribution width (RBC) [Entitic vol] 43.8 fL 35.1-43.9 [facility] Estimated glomerular filtrat ion rate (GFR) AmericanOrdered By: Saadia Lozada on 03-26-2024 Estimated GFR (MDRD) Amer 157 mL/min >60 [facility] Comment on above: GFR Calc Glomerular filtration rate ( GFR) estimationOrdered By: Saadia Lozada on 03-26-2024 Estimated GFR (MDRD) Non-Af Amer 130 mL/min >60 [facility] Comment on above: Non- GFR Calc Glucose measurementOrdered B y: Saadia Lozada on 03-26-2024 Glucose [Mass/Vol] 91 mg/dL 74-106 [facility] Hematocrit Auto (Bld) [Volum e fraction]Ordered By: Saadia Lozada on 03-26-2024 Hematocrit (Bld) [Volume fraction] 41.3 % 37-47 [facility] Hemoglobin measurementOrdere d By: Saadia Lozada on 03-26-2024 Hemoglobin (Bld) [Mass/Vol] 13.5 g/dL 12.0-15. 0 [facility] MCV (mean corpuscular volume ) determinationOrdered By: Saadia Lozada on 03-26-2024 MCV (RBC) [Entitic vol] 86.9 fL 81-99 [facility] Mean corpuscular hemoglobin (MCH) determinationOrdered By: Saadia Lozada on 03-26-2024 MCH (RBC) [Entitic mass] 28.4 pg 27.0-32.0 [facility] Mean corpuscular hemoglobin concentration (MCHC) determinationOrdered By: Saadia Lozada on 03-26-2024 MCHC (RBC) [Mass/Vol] 32.7 g/dL 32-36 [facility] Mean platelet volume determi nationOrdered By: Saadia Lozada on 03-26-2024 Platelet mean volume (Bld) [Entitic vol] 9.0 fL 6.2-12.0 [facility] Platelet countOrdered By: Holger Lozada on 03-26-2024 Platelets (Bld) [#/Vol] 278 10*3/uL 150-450 [facility] Potassium measurementOrdered By: Saadia Lozada on 03-26-2024 Potassium [Moles/Vol] 4.4 mmol/L 3.5-5.1 [facility] RBC Auto (Bld) [#/Vol]Ordere d By: Saadia Lozada on 03-26-2024 RBC (Bld) [#/Vol] 4.75 10*6/uL 4.2-5.4 [facility] Serum anion gap measurementO rdered By: Saadia Lozada on 03-26-2024 Anion gap [Moles/Vol] 6 mmol/L 5-15 [facility] Serum or plasma calcium cuauhtemoc urement (mass/volume)Ordered By: Saadia Lozada on 03-26-2024 Calcium [Mass/Vol] 8.9 mg/dL 8.5-10.1 [facility] Serum or plasma creatinine m easurement (mass/volume)Ordered By: Saadia Lozada on 03-26-2024 Creatinine [Mass/Vol] 0.52 mg/dL Low 0.55-1.02 [facility] Comment on above: The validity of the calculated GFR & GFRAA in patients over 70 years has not been determined. Clinical correlation is essential. Serum or plasma urea nitroge n measurement (mass/volume)Ordered By: Saadia Lozada on 03-26-2024 Urea nitrogen [Mass/Vol] 9 mg/dL 7-18 [facility] Sodium levelOrdered By: Millie Lozada on 03-26-2024 Sodium [Moles/Vol] 138 mmol/L 136-145 [facility] White blood cell (WBC) count Ordered By: Saadia Lozada on 03-26-2024 WBC (Bld) [#/Vol] 5.7 10*3/uL 4.4-11.0 [facility] Calprotectin, Stoolon [address] 11 ug/g Normal 0-120 [facility] Comment on above: Result Comment: Conc entration Interpretation Follow-Up < 5 - 50 ug/g Normal None >50 -120 ug/g Borderline Re-evaluate in 4-6 weeks >120 ug/g Abnormal Repeat as clinically indicated Performed at: - [address] [id number] Home Care Companion: Benjie Zaman MD, Phone: [phone] Performed By: #### L 4500.0100, L3100.6050, L3410.9818, L506.1001, L3100.5475, L101.9900, L501.6710 #### [facility] [address] [place], [address] Calprotectin stoolOrdered By : Fani Bay on 03-21-2024 Stool Calprotectin 11 ug/g 0-120 [facility] Comment on above: Concentration Interp retation Follow-Up< 5 - 50 ug/g Normal None>50 -120 ug/g Borderline Re-evaluate in 4-6 weeks >120 ug/g Abnormal Repeat as clinically indicatedPerformed at: [facility] - [facility] [address] [id number] Director: Benjie Zaman MD, Phone: [phone] Venous Duplex US, Unilateral on 03-21-2024 Venous Duplex US, Unilateral [facility] Cardiovascular Services [address] [place] [address] Venous Duplex US, Unilateral 03/21/24 1300 MR#: [id number] Acct: [id number] Name: SANDRA BRADLEY Rep #: [id number] : 1970 54 From: Lee Goodman MD Attending Dr: BELINDA Berkowitz Status: REG CLI Ordering Dr: Helen Duff NP RAILWAY TRACK WORKER-C Date: 03/21/24 Location: [facility] Sex: F C Admitted: Reason For Study: PAIN RIGHT LEFT CFV is compressible, spontaneous, phasic, GSV is normal. competent and demonstrates normal CFV is compressible, spontaneous, phasic, augmentation. competent, and demonstrates normal Procedure augmentation. This is a venous duplex using B-mode, color FV is compressible, spontaneous, phasic, flow and spectral Doppler. competent and demonstrates normal Exam performed in department. augmentation. A preliminary report was called and/or faxed POP V is compressible, spontaneous, phasic, to Helen [facility] @ [phone] @ 13:30. competent and demonstrates normal augmentation. T/P Trunk is compressible. PTV is compressible. LT PerV is compressible. VL/Venous Duplex US, Unilateral Interpretation Summary Deep veins of the left lower extremity are patent and compressible segmentally. There is no evidence of left lower extremity deep vein thrombosis. Valvular competence appears intact within the proximal deep venous system on the left . The left great saphenous vein appears patent and compressible segmentally. The right common femoral vein is patent and compressible . Ordering Physician: Helen Duff Referring Physician: Sabi Arnett Performed By: Lavonne Vargas, NATHANCS, RVT 03/21/241828 Date Lee Goodman MD CC: RAILWAY TRACK WORKER-C Helen Duff; Dr. Sabi Arnett MD Date Dictated: 03/21/24 1300 Date Transcribed: 03/21/241828 Electrogalvanizing Machine Operator: Signed Normal [facility] Tibia Fibula 2 Viewson 03-20 Tibia Fibula 2 Views [facility] Imaging Services [address] [place], [place] [address] Tibia Fibula 2 Views MR#: [id number] Acct: [id number] Name: BRADLEYSANDRA Rep #: [id number] : 1970 F 54 From: Amari sullivan MD PCP: Dr. Sabi Arnett MD Status: REG CLI Study: Tibia Fibula 2 Views Date of Exam: 03/20/24 Exam# [id number] Ordering Dr: Helen Duff RAILWAY TRACK WORKER RAILWAY TRACK WORKER-C [id number] STUDY: X-RAY - LEFT TIBIA AND FIBULA REASON FOR EXAM: Female, 54 years old. injury, pain, swelling TECHNIQUE: 2 view(s) of the tibia and fibula were obtained. COMPARISON: None. FINDINGS: Normal visualized tibia. Normal visualized fibula. There is no demonstrated acute fracture. The soft tissue structures are unremarkable. RAD/Tibia Fibula 2 Views IMPRESSION: Normal x-ray examination of the tibia and fibula. Electronically Signed: Amari iSlva MD at 17:06 EST , CC: BELINDA Duff; Dr. Sabi Arnett MD Electrogalvanizing Machine Operator: Signed Normal [facility] Lyme Antibodies,W [place]oton LYME IgG INTERP Negative Normal . [facility] Comment on above: Result Comment: Posi tive: 5 of the following Borrelia-specific bands: 18,23,28,30,39,41,45,58, 66, and 93. Negative: No bands or banding patterns which do not meet positive criteria. Performed By: #### L 4500.0100, L3100.7950, L3410.9998, L506.1001, L3100.5475, L101.9900, L501.6710 #### [facility] [address] [place], [address] LYME IgM INTERP Negative Normal . [facility] Comment on above: Result Comment: Note : An equivocal or positive EIA result followed by a negative Line Blot result is considered NEGATIVE. An equivocal or positive EIA result followed by a positive Line Blot is considered POSITIVE by the CDC. Positive: 2 of the following bands: 23,39 or 41 Negative: No bands or banding patterns which do not meet positive criteria. Criteria for positivity are those recommended by CDC/ASTPHLD. p23=Osp C, f70=[id number] Note: Sera from individuals with the following may cross react in the Lyme Line Blot assays: other spirochetal diseases (periodontal disease, leptospirosis, relapsing fever, yaws, and pinta); connective autoimmune (Rheumatoid Arthritis and Systemic Lupus Erythematosus and also individuals with Antinuclear Antibody); other infections ([place] Spotted Fever; Shon-Do Virus, and Cytomegalovirus). Please Note: Lyme immunoblot alone is not recommended for the diagnosis of Lyme disease. Current guidelines recommend the use of a two-tiered approach to Lyme serology testing to improve the sensitivity and specificity of testing. [facility] offers test code 525274 Lyme Disease Serology with Reflex to aid in the diagnosis of Lyme Disease. Performed at: [address] [id number] Home Care Companion: Benjie Zaman MD, Phone: [phone] Performed By: #### L 4500.0100, L3100.7950, L3410.9998, L506.1001, L3100.5475, L101.9900, L501.6710 #### [facility] [address] [place], [address] P18 Ab Absent Normal . [facility] Comment on above: Performed By: #### L 4500.0100, L3100.7950, L3410.9998, L506.1001, L3100.5475, L101.9900, L501.6710 #### [facility] [address] [place], [address] P23 Ab Absent Normal . [facility] Comment on above: Performed By: #### L 4500.0100, L3100.7950, L3410.9998, L506.1001, L3100.5475, L101.9900, L501.6710 #### [facility] [address] [place], [address] P28 Ab Absent Normal . [facility] Comment on above: Performed By: #### L 4500.0100, L3100.7950, L3410.9998, L506.1001, L3100.5475, L101.9900, L501.6710 #### [facility] [address] [place], [address] P30 Ab Absent Normal . [facility] Comment on above: Performed By: #### L 4500.0100, L3100.7950, L3410.9998, L506.1001, L3100.5475, L101.9900, L501.6710 #### [facility] [address] [place], [place], [facility] P39 Ab Absent Normal . [facility] Comment on above: Performed By: #### L 4500.0100, L3100.7950, L3410.9998, L506.1001, L3100.5475, L101.9900, L501.6710 #### [facility] [address] [place], [place], [facility] P39 Ab Present Abnormal . [facility] Comment on above: Performed By: #### L 4500.0100, L3100.7950, L3410.9998, L506.1001, L3100.5475, L101.9900, L501.6710 #### [facility] [address] [place], [address] P41 Ab Absent Normal . [facility] Comment on above: Performed By: #### L 4500.0100, L3100.7950, L3410.9998, L506.1001, L3100.5475, L101.9900, L501.6710 #### [facility] [address] [place], [address] P45 Ab Absent Normal . [facility] Comment on above: Performed By: #### L 4500.0100, L3100.7950, L3410.9998, L506.1001, L3100.5475, L101.9900, L501.6710 #### [facility] [address] [place], [address] P58 Ab Present Abnormal . [facility] Comment on above: Performed By: #### L 4500.0100, L3100.7950, L3410.9998, L506.1001, L3100.5475, L101.9900, L501.6710 #### [facility] [address] [place], [address] P66 Ab Absent Normal . [facility] Comment on above: Performed By: #### L 4500.0100, L3100.7950, L3410.9998, L506.1001, L3100.5475, L101.9900, L501.6710 #### [facility] [address] [place], [address] P93 Ab Absent Normal . [facility] Comment on above: Performed By: #### L 4500.0100, L3100.7950, L3410.9998, L506.1001, L3100.5475, L101.9900, L501.6710 #### [facility] [address] [place], [address] CBC W/Diff, Automatedon 11-0 Absolute Lymph 1.70 X10 3/uL Normal 0.83-4.51 [facility] Comment on above: Performed By: #### L 4500.0100, L3100.7950, L3410.9998, L506.1001, L3100.5475, L101.9900, L501.6710 #### [facility] [address] [place], [address] Absolute Neut 4.5 X10 3/uL Normal 2.0-7.7 [facility] Comment on above: Performed By: #### L 4500.0100, L3100.7950, L3410.9998, L506.1001, L3100.5475, L101.9900, L501.6710 #### [facility] [address] [place], [address] Basophils/100 WBC (Bld) 0.6 % Normal 0-1 [facility] Comment on above: Performed By: #### L 4500.0100, L3100.7950, L3410.9998, L506.1001, L3100.5475, L101.9900, L501.6710 #### [facility] [address] [place], [address] Eosinophils/100 WBC (Bld) 0.3 % Normal 0-5 [facility] Comment on above: Performed By: #### L 4500.0100, L3100.7950, L3410.9998, L506.1001, L3100.5475, L101.9900, L501.6710 #### [facility] [address] [place], [address] Erythrocyte distribution width (RBC) [Ratio] 14.2 % Normal 11.6-14.6 [facility] Comment on above: Performed By: #### L 4500.0100, L3100.7950, L3410.9998, L506.1001, L3100.5475, L101.9900, L501.6710 #### [facility] [address] [place], [address] Hematocrit (Bld) [Volume fraction] 42.3 % Normal 37-47 [facility] Comment on above: Performed By: #### L 4500.0100, L3100.7950, L3410.9998, L506.1001, L3100.5475, L101.9900, L501.6710 #### [facility] [address] [place], [address] Hemoglobin (Bld) [Mass/Vol] 13.7 g/dL Normal 12.0-15. 0 [facility] Comment on above: Performed By: #### L 4500.0100, L3100.7950, L3410.9998, L506.1001, L3100.5475, L101.9900, L501.6710 #### [facility] [address] [place], [address] IG% 0.300 Normal 0.0-0.9 [facility] Comment on above: Result Comment: IG% - Immature Granulocytes (promyelocytes, myelocytes and metamyelocytes) > 1% indicates that a LEFT SHIFT is Present. Performed By: #### L 4500.0100, L3100.7950, L3410.9998, L506.1001, L3100.5475, L101.9900, L501.6710 #### [facility] [address] [place], [address] Lymphocytes/100 WBC (Bld) 25.1 % Normal 19-41 [facility] Comment on above: Performed By: #### L 4500.0100, L3100.7950, L3410.9998, L506.1001, L3100.5475, L101.9900, L501.6710 #### [facility] [address] [place], [address] MCH (RBC) [Entitic mass] 27.8 pg Normal 27.0-32.0 [facility] Comment on above: Performed By: #### L 4500.0100, L3100.7950, L3410.9998, L506.1001, L3100.5475, L101.9900, L501.6710 #### [facility] [address] [place], [address] MCHC (RBC) [Mass/Vol] 32.4 g/dL Normal 32-36 [facility] Comment on above: Performed By: #### L 4500.0100, L3100.7950, L3410.9998, L506.1001, L3100.5475, L101.9900, L501.6710 #### [facility] [address] [place], [address] MCV (RBC) [Entitic vol] 85.8 fL Normal 81-99 [facility] Comment on above: Performed By: #### L 4500.0100, L3100.7950, L3410.9998, L506.1001, L3100.5475, L101.9900, L501.6710 #### [facility] [address] [place], [address] Monocytes/100 WBC (Bld) 7.2 % Normal 0-10 [facility] Comment on above: Performed By: #### L 4500.0100, L3100.7950, L3410.9998, L506.1001, L3100.5475, L101.9900, L501.6710 #### [facility] [address] [place], [address] Neutrophils/100 WBC (Bld) 66.5 % Normal 47-70 [facility] Comment on above: Performed By: #### L 4500.0100, L3100.7950, L3410.9998, L506.1001, L3100.5475, L101.9900, L501.6710 #### [facility] [address] [place], [address] Nucleated RBC (Bld) [#/Vol] 0 10*3/uL Normal 0-5 [facility] Comment on above: Performed By: #### L 4500.0100, L3100.7950, L3410.9998, L506.1001, L3100.5475, L101.9900, L501.6710 #### [facility] [address] [place], [address] Platelet mean volume (Bld) [Entitic vol] 9.4 fL Normal 6.2-12.0 [facility] Comment on above: Performed By: #### L 4500.0100, L3100.7950, L3410.9998, L506.1001, L3100.5475, L101.9900, L501.6710 #### [facility] [address] [place], [address] Platelets (Bld) [#/Vol] 360 10*3/uL Normal 150-450 [facility] Comment on above: Performed By: #### L 4500.0100, L3100.7950, L3410.9998, L506.1001, L3100.5475, L101.9900, L501.6710 #### [facility] [address] [place], [address] RBC (Bld) [#/Vol] 4.93 10*6/uL Normal 4.2-5.4 [facility] Comment on above: Performed By: #### L 4500.0100, L3100.7950, L3410.9998, L506.1001, L3100.5475, L101.9900, L501.6710 #### [facility] [address] [place], [address] RDW SD 44.5 fl High 35.1-43.9 [facility] Comment on above: Performed By: #### L 4500.0100, L3100.7950, L3410.9998, L506.1001, L3100.5475, L101.9900, L501.6710 #### [facility] [address] [place], [address] WBC (Bld) [#/Vol] 6.8 10*3/uL Normal 4.4-11.0 [facility] Comment on above: Performed By: #### L 4500.0100, L3100.7950, L3410.9998, L506.1001, L3100.5475, L101.9900, L501.6710 #### [facility] [address] [place], [address] CRPon 03-01-2024 C-REACTIVE PROT 5.05 mg/L High 0.0-3.0 [facility] Comment on above: Result Comment: C-Re active Protein (CRP) provides useful information for the diagnosis, therapy and monitoring of inflammatory processes and associated diseases. For the evaluation of Relative Risk for Cardiovascular Disease, a High Sensitivity CRP (HSCRP) should be ordered. Performed By: #### L 4500.0100, L3100.7950, L3410.9998, L506.1001, L3100.5475, L101.9900, L501.6710 #### [facility] [address] [place], [address] Comprehensive Metabolic Prof ilon 03-01-2024 Albumin [Mass/Vol] 3.8 g/dL Normal 3.2-5.0 [facility] Comment on above: Performed By: #### L 4500.0100, L3100.7950, L3410.9998, L506.1001, L3100.5475, L101.9900, L501.6710 #### [facility] [address] [place], [address] Albumin/Globulin [Mass ratio] 1.1 {ratio} Normal 0.9-2.4 [facility] Comment on above: Performed By: #### L 4500.0100, L3100.7950, L3410.9998, L506.1001, L3100.5475, L101.9900, L501.6710 #### [facility] [address] [place], [address] ALK P 76 U/L Normal 45-117 [facility] Comment on above: Performed By: #### L 4500.0100, L3100.7950, L3410.9998, L506.1001, L3100.5475, L101.9900, L501.6710 #### [facility] [address] [place], [address] ALT [Catalytic activity/Vol] 23 U/L Normal 13-56 [facility] Comment on above: Performed By: #### L 4500.0100, L3100.7950, L3410.9998, L506.1001, L3100.5475, L101.9900, L501.6710 #### [facility] [address] [place], [address] AST [Catalytic activity/Vol] 20 U/L Normal 15-37 [facility] Comment on above: Performed By: #### L 4500.0100, L3100.7950, L3410.9998, L506.1001, L3100.5475, L101.9900, L501.6710 #### [facility] [address] [place], [address] Bilirubin [Mass/Vol] 0.30 mg/dL Normal 0.20-1.00 [facility] Comment on above: Result Comment: For patients on eltrombopag therapy, use of Dimension [place] TBIL is not recommended. Performed By: #### L 4500.0100, L3100.7950, L3410.9998, L506.1001, L3100.5475, L101.9900, L501.6710 #### [facility] [address] [place], [address] BUN/CRE 15.9 RATIO Normal 10-20 [facility] Comment on above: Performed By: #### L 4500.0100, L3100.7950, L3410.9998, L506.1001, L3100.5475, L101.9900, L501.6710 #### [facility] [address] [place], [address] CA,Total 9.2 mg/dL Normal 8.5-10.1 [facility] Comment on above: Performed By: #### L 4500.0100, L3100.7950, L3410.9998, L506.1001, L3100.5475, L101.9900, L501.6710 #### [facility] [address] [place], [address] Chloride [Moles/Vol] 105 mmol/L Normal 98-107 [facility] Comment on above: Performed By: #### L 4500.0100, L3100.7950, L3410.9998, L506.1001, L3100.5475, L101.9900, L501.6710 #### [facility] [address] [place], [address] CO2 [Moles/Vol] 28.0 mmol/L Normal 21.0-32.0 [facility] Comment on above: Performed By: #### L 4500.0100, L3100.7950, L3410.9998, L506.1001, L3100.5475, L101.9900, L501.6710 #### [facility] [address] [place], [address] Creatinine [Mass/Vol] 0.69 mg/dL Normal 0.55-1.02 [facility] Comment on above: Result Comment: The validity of the calculated GFR GFRAA in patients over 70 years has not been determined. Clinical correlation is essential. Performed By: #### L 4500.0100, L3100.7950, L3410.9998, L506.1001, L3100.5475, L101.9900, L501.6710 #### [facility] [address] [place], [address] EST GFR - AA 113 mL/min Normal >60 [facility] Comment on above: Result Comment: Afri can Citizen Of [place] GFR Calc Performed By: #### L 4500.0100, L3100.7950, L3410.9998, L506.1001, L3100.5475, L101.9900, L501.6710 #### [facility] [address] [place], [address] GAP 5 Normal 5-15 [facility] Comment on above: Performed By: #### L 4500.0100, L3100.7950, L3410.9998, L506.1001, L3100.5475, L101.9900, L501.6710 #### [facility] [address] [place], [address] GFR/1.73 sq M.predicted among non-blacks MDRD (S/P/Bld) [Vol rate/Area] 93 mL/min/{1.73_m2} Normal >60 [facility] Comment on above: Result Comment: Non- GFR Calc Performed By: #### L 4500.0100, L3100.7950, L3410.9998, L506.1001, L3100.5475, L101.9900, L501.6710 #### [facility] [address] [place], [address] Globulin (S) [Mass/Vol] 3.6 g/dL Normal 2.2-4.2 [facility] Comment on above: Performed By: #### L 4500.0100, L3100.7950, L3410.9998, L506.1001, L3100.5475, L101.9900, L501.6710 #### [facility] [address] [place], [address] Glucose [Mass/Vol] 83 mg/dL Normal 74-106 [facility] Comment on above: Performed By: #### L 4500.0100, L3100.7950, L3410.9998, L506.1001, L3100.5475, L101.9900, L501.6710 #### [facility] [address] [place], [address] Potassium [Moles/Vol] 3.8 mmol/L Normal 3.5-5.1 [facility] Comment on above: Performed By: #### L 4500.0100, L3100.7950, L3410.9998, L506.1001, L3100.5475, L101.9900, L501.6710 #### [facility] [address] [place], [address] Sodium [Moles/Vol] 138 mmol/L Normal 136-145 [facility] Comment on above: Performed By: #### L 4500.0100, L3100.7950, L3410.9998, L506.1001, L3100.5475, L101.9900, L501.6710 #### [facility] [address] [place], [address] T PROT 7.4 g/dL Normal 6.4-8.2 [facility] Comment on above: Performed By: #### L 4500.0100, L3100.7950, L3410.9998, L506.1001, L3100.5475, L101.9900, L501.6710 #### [facility] [address] [place], [address] Urea nitrogen [Mass/Vol] 11 mg/dL Normal 7-18 [facility] Comment on above: Performed By: #### L 4500.0100, L3100.7950, L3410.9998, L506.1001, L3100.5475, L101.9900, L501.6710 #### [facility] [address] [place], [address] Erythrocyte Sed Rateon 03-01 SED RATE 8 mm/hr Normal 0-30 [facility] Comment on above: Performed By: #### L 4500.0100, L3100.7950, L3410.9998, L506.1001, L3100.5475, L101.9900, L501.6710 #### [facility] [address] [place], [address] Gastroenterology Visit Repor ton 03-01-2024 Gastroenterology Visit Report [facility] Gastroenterology [address] [place] [address] OFFICE VISIT Date of Service: 03/01/24 MR#: [id number] Acct: [id number] Name: SANDRA BRADLEY Rep #: [id number] : 1970 Provider: KAMALA De Los Santos Age/Sex: 54/F Location: [facility] Status: Signed Intake Intake Visit Reasons: Ulcerative colitis Chief Complaint: UC Internet Developer Required: No Accompanied by: Self Is patient in pain?: Yes Allergies mold (mold spores) Allergy (Verified 02/12/24 09:27) Other Medications ???Medication ???Instructions ???Recorded ???Confirmed ???Type citalopram 20 mg tablet (Celexa) 20 mg PO QDAY 07/27/17 03/01/24 History azathioprine 50 mg tablet 100 mg PO QDAY 02/12/24 02/12/24 History cetirizine 10 mg tablet (Zyrtec) 10 mg PO QDAY PRN 02/12/24 02/12/24 History omeprazole 20 mg capsule,delayed 20 mg PO QDAY 02/12/24 02/12/24 History release rabeprazole 20 mg tablet,delayed 20 mg PO QDAY 02/12/24 02/12/24 History release rizatriptan 10 mg tablet 10 mg PO ONCE 02/12/24 02/12/24 History triamcinolone acetonide 55 mcg 1 spray intranasal QDAY 02/12/24 02/12/24 History nasal spray aerosol (Nasacort Allergy) Have you fallen in the past year?: Yes Nurse's Note: Would like to switch care providers. [facility] Medical History (Updated 03/01/24 @ 15:05 by KAMALA De Los Santos) Abdominal pain Diarrhea Ulcerative colitis Lump of right breast Surgical History S/P laparoscopic procedure S/P lumpectomy, right breast S/P hysterectomy S/P Family History (Updated 03/01/24 @ 14:33 by Aislinn Estrella) Mother High cholesterol Anxiety Arthritis Depression Hypertension Father Cancer Skin cancer CVA (cerebral vascular accident) Hypertension Sister Depression Fibromyalgia Social History (Updated 03/01/24 @ 14:31 by Aislinn Estrella) household members: spouse and children current occupational status: employed Smoking Status: Never smoker second hand exposure: No alcohol intake: current alcohol intake frequency: holidays/special occasions only substance use type: does not use caffeine: Yes what type of physical activity do you participate in: walking frequency: 3-4 times per week seatbelt use: always HPI HPI Chief Complaint: UC Details: SANDRA BRADLEY, is a 54 F who presents to the office today for establishment with [facility]. Pt has a PMHx of UC and has been seeing Dr. Love for years. She tells me she was diagnosed 35 years ago. She has been on 5-ASAs for a long time and currently takes balsalazide, azathioprine and is on Remicade infusions. She does not feel she needs to be on all of these medications. She has no GI symptoms at this time. She has flares every couple of years that are resolved with a course of prednisone. She has severe joint pain and has seen rheumatology. Autoimmune testing was negative. She has concerns over lyme disease as she knows she has had a tick bite in the past. Her last colonoscopy was in May 2023 which showed a lot of inflammations and ulcerations. ROS Const Constitutional: Positive for fatigue, frequent falls, headache(s) and weakness; No fever(s) or weight change ENT ENT: Positive for headache(s); No difficulty swallowing Gastro GI: No abdominal pain, belching, bloating, change in bowel habits, change in stool character, coffee ground emesis, constipation, cramping, diarrhea, heartburn, difficulty swallowing, feeling full early, excessive flatus, incontinent of stools, Vomiting blood/hematemesis, Blood in stool, loose stools, Black,tarry stools, nausea/dyspepsia, pain with swallowing, vomiting or other Musc Musculoskeletal: Positive for abnormal gait, joint pain, back pain, muscle weakness, stiffness and sciatica Skin Skin: Positive for itchy eyes; No yellowing of the eye Neuro Neurology: Positive for abnormal gait, weakness, frequent falls and headache(s) Psych Psychiatric: Positive for anxiety, Positive for depression and Positive for inattentiveness Endo Endocrine: Positive for fatigue; No weight change Aller/Imm Allergy/Immunologic: Positive for itchy eyes Filemon/Lymp Hematologic/Lymphatic : No easy bleeding or easy bruising Exam Const General: cooperative and comfortable Nutritional Appearance: average body habitus and well nourished HENNE Head: normal to inspection Ears: hearing grossly normal bilaterally Nose: external nose normal Face and sinus: normal facial exam Mouth: oral mucosae normal Throat: posterior oropharynx normal Eyes General: appearance normal, both eyes and all related structures Neck Neck: normal visual inspection Chest Chest palpation inspection: normal inspection of the chest and normal palpation of entire chest wall Resp Effort Inspection: normal respi (more content not included)... Normal [facility] Inital Evaluation (1) - PTon 12-05-2023 Inital Evaluation (1) - PT [facility] [address] [place] [address]. [address] [place] [address] / REHABILITATION SERVICES INITIAL EVALUATION MR#: [id number] Acct: [id number] Name: SANDRA BRADLEY Rep #: [id number] : 1970 53 From: Franklyn Hickey DPT Referring Dr.: Dr. Matthew English DO Status: REG [facility] Insurance: [facility] SELF PAY INSURANCE Patient's Visit Information Visit Information Visit Information: SANDRA BARDLEY is a 53 year old F referred to Physical Therapy by Dr. Matthew English DO with a diagnosis of B shoulder bursitis. Date of Evaluation: 11/21/23 Physical Therapist: Franklyn Hickey DPT Visit Plan Frequency: 1x/Week Duration: 6 Weeks Plan: Start with progressive strengthening in none painful ranges of B shoulder and scapular musculature. I gave her an HEP today she is to complete on her own for 2 weeks then follow back up with PT. Subjective Subjective: Pt. is here today for her initial evaluation with diagnosis of B shoulder bursitis. Pt. reports having increased symptoms for a few years. No mech of injury. Pt. reports R being worse the L, but the L is more recent. She does have a R RTC for year with no pain at rest, but very painful at night. Her left is more pain with lifting over head. She is having trouble with sleeping as well. Pain L shoulder: Pain Intensity (Out of 10): 2 Pain Intensity Range: 0 and 4 R shoulder: Pain Intensity (Out of 10): 3 Pain Intensity Range: 1 and 4 Objective Objective: POSTURE: Pt. has fairly normal posture in stance, equal shoulder heights. PALPATION: Pt. has mild soreness at anterior sub acromial space. NEURO: normal throughout. AROM: R shoulder: flexion 170deg increase NW, 175 no pain, functional ER C3, functional IR R SI joint. L shoulder: Full motion except slight reduced functional IR and end range ABD with mild increase symptoms. PROM: full mild increase NW at end ranges. MMT: R shoulder: flexion 11.1#, abd 9.1#, ER 7.9#, IR 11.2#. L shoulder: flexion 13.1#, abd 10.9#, ER 9.1#, IR 13.2#. Pt. did have an MRI on both: R RTC tear, L bursitis, no injection currently. Special Tests R Shoulder Drop Sign - IS Test: Negative R Shoulder Empty Can - SS: Positive R Shoulder Belly Press - SupScap: Negative R Shoulder Neer - Impingement: Positive R Shoulder Glynn Abel - Impingement: Positive L Shoulder Empty Can - SS: Positive L Shoulder Belly Press - SupScap: Negative L Shoulder Neer - Impingement: Positive L Shoulder Glynn Abel - Impingement: Positive Balance/Special Test Scores Quick DASH Score: 52.2725 Goals Goal 1:: LTG: Pt to be I with HEP for B shoulder and RTC strengthening. Goal Time Frame: 4-6 Weeks Goal 2:: LTG: Pt. to sleep throughout the night without increase in symptoms. Goal Time Frame: 4-6 Weeks Goal 3:: LTG: Pt. to have full B shoulder ROM without increase in symptoms. Goal Time Frame: 4-6 Weeks Goal 4:: STG: pt. to sleep throughout the night without increase in symptoms. Goal Time Frame: 2-4 Weeks Goal 5:: LTG: Pt. to have increased B shoulder strength by 5# throughout. Goal Time Frame: 4-6 Weeks Rehabilitation Potential Physical Therapy Diagnosis: Pt. has signs and symptoms consistent with B shoulder bursitis. Pt. has a RTC tear and bursitis on the L side via MRI. Pt. does have some minimal ROM issues, but more issue with her strength. Pt. would benefit from PT get a strengthening program in order to attempt to stave off any surgical procedures. Rehabilitation Potential: Good Anticipated Interventions Patient/Client Instruction: Educate patient on: Condition, Plan of Care, Risk Factors and Benefits of Fitness Program For the Purpose of:: To improve decision making, To facilitate caregiver knowledge, To improve self management, To prevent re-injury, To improve ability to perform tasks related to life management and To improve tolerance to ADL's Therapeutic Exercise to Include: Strength training, Power training, Passive ROM, Active ROM and Scapular Strength/Stabilizatio n For the Purpose of:: To decrease pain, To increase ROM, To improve nutrient delivery to tissue, To increase oxygenation perfusion, To improve muscle performance and motor function, To improve ability to perform ADL's, To increase tolerance to activity/condition/po sition and To improve performance and independence with ADL's Text: Thank you for the opportunity to evaluate your patient. For Medicare and Medicare HMO plans, please review the plan of care and approve it. It will need to be FAXED BACK to us at [phone] for Medicare purposes. For Medicare only, by signing this I certify the plan of care. Please let me know if there are questions or concerns regarding this plan of care. Physician Signature: Date : 0 (more content not included)... Normal [facility] Absolute lymphocyte countOrd ered By: Ezekiel Love on 08-09-2023 Lymphocytes Auto (Unsp spec) [#/Vol] 2.49 10*3/uL 0.83-4.51 [facility] Automated lymphocyte count a s percentage of total leukocytesOrdered By: Ezekiel Love on 08-09-2023 Lymphocytes/100 WBC Auto (Unsp spec) 34.5 % 19-41 [facility] Basophil percentageOrdered B y: Ezekiel Love on 08-09-2023 Basophils/100 WBC (Bld) 0.6 % 0-1 [facility] Bilirubin [Mass/Vol] 0.50 mg/dL 0.20-1.00 [facility] Comment on above: For patients on eltr ombopag therapy, use of Dimension [place] TBIL is not recommended. Eosinophils/100 WBC (Bld) 0.6 % 0-5 [facility] Hemoglobin (Bld) [Mass/Vol] 13.3 g/dL 12.0-15. 0 [facility] Monocytes/100 WBC (Bld) 5.7 % 0-10 [facility] Neutrophils (Bld) [#/Vol] 4.2 10*3/uL 2.0-7.7 [facility] Neutrophils/100 WBC (Bld) 58.3 % 47-70 [facility] Protein [Mass/Vol] 7.1 g/dL 6.4-8.2 [facility] WBC (Bld) [#/Vol] 7.2 10*3/uL 4.4-11.0 [facility] Determination of erythrocyte mean corpuscular volume (MCV)Ordered By: Ezekiel Love on 08-09-2023 MCV (RBC) [Entitic vol] 87.6 fL 81-99 [facility] Direct bilirubinOrdered By: Ezekiel Love on 08-09-2023 Bilirubin.direct [Mass/Vol] 0.13 mg/dL 0.00-0.3 0 [facility] Erythrocyte distribution wid th ratioOrdered By: Ezekiel Love on 08-09-2023 Erythrocyte distribution width (RBC) [Ratio] 13.9 % 11.6-14.6 [facility] Erythrocyte distribution wid th standard deviationOrdered By: Ezekiel Love on 08-09-2023 Erythrocyte distribution width (RBC) [Entitic vol] 44.8 fL 35.1-43.9 [facility] Hematocrit Auto (Bld) [Volum e fraction]Ordered By: Ezekiel Love on 08-09-2023 Hematocrit (Bld) [Volume fraction] 42.2 % 37-47 [facility] Immature granulocytes/100 WB C Auto (Bld)Ordered By: Ezekiel Love on 08-09-2023 Immature granulocytes/100 WBC (Bld) 0.300 % 0.0-0.9 [facility] Comment on above: IG% - Immature Granu locytes (promyelocytes, myelocytes and metamyelocytes) > 1% indicates that a LEFT SHIFT is Present. Laboratory - Chemistry and C hemistry - challengeOrdered By: Ezekiel Love on 08-09-2023 ALP [Catalytic activity/Vol] 68 U/L 45-117 [facility] ALT [Catalytic activity/Vol] 20 U/L 13-56 [facility] Globulin (S) [Mass/Vol] 3.5 g/dL 2.2-4.2 [facility] Laboratory - Hematology and Cell countsOrdered By: Ezekiel Love on 08-09-2023 MCH (RBC) [Entitic mass] 27.6 pg 27.0-32.0 [facility] MCHC (RBC) [Mass/Vol] 31.5 g/dL 32-36 [facility] Nucleated RBC/100 WBC (Bld) [Ratio] 0 % 0-5 [facility] Platelet mean volume (Bld) [Entitic vol] 9.4 fL 6.2-12.0 [facility] Platelets (Bld) [#/Vol] 333 10*3/uL 150-450 [facility] RBC Auto (Bld) [#/Vol]Ordere d By: Ezekiel Love on 08-09-2023 RBC (Bld) [#/Vol] 4.82 10*6/uL 4.2-5.4 [facility] Thin prep Papanicolaou smear with manual screeningOrdered By: Ezekiel Love on 08-09-2023 Thin prep Papanicolaou smear with manual screening 3.6 g/dL 3.2-5.0 [facility] Thin prep Papanicolaou smear with manual screening 15 U/L 15-37 [facility] No Panel InformationOrdered By: Ezekiel Love on 06-26-2023 Miscellaneous Test See comment [facility] Comment on above: Scanned image report available in EMR F5 gene p.[id number] Molgen Q l (Bld/Tiss)on 06-05-2023 Electronically signed and reported by Anahi Edwards MD PhD [facility] Work Phone: [facility] Work Phone: Factor V Leidenon 06-05-2023 F5 gene p.[id number] Molgen Ql (Bld/Tiss) Normal Normal [facility] Work Phone: F5 gene p.[id number] Molgen Ql (Bld/Tiss) p0sbvLNdHBUilJFhYtIhT VBbLVNub1qvESLgaZGrEv EwMzNcZnRuYmpcdWMxXGR mNvEdr5jnn807pRHkx2ed ONMwIoX3jXApZAHoZ45vZ MKIW536TNJoHPmic7xfx7 LhKLAnbMUoz0W3TZWFJFl lRZLXWVu6iKcnY38ii8F3 MhtrA5doRLSwHTKnA7BkD N2rCEUiViz0GML7ZLI8QI YiJMWjD5GfEP7kGFJneXJ cAUv5c5tcsJtnAITlPNJ3 n8mbTUmxbmOtWE4pyj1pu Wk8b9ibioQmORQsHRQbjG DYMYJmY0PtbCdhFd0qwHm 7wKvqByetUIM4Ywn6PY9v er34hel2cJskVAZsctsmJ xB5YEfeMOMcawpwWNi3AZ xsRVGibUK4BVOiaCTiV2S mJGZxOA4tzhe0GUI3NQge WCNxVyN6RIFfuETwNHIvv FfuCKkrt632KJR6GlPmRB 7fE4Fbx5E8bN1nkLSnTDH qzJCwWlTeSCFlfd6wdYOg PPkuj2CrKRU3jpP9gWGir DFfPAQyIV76Ftdxi0KoFx tla3XoY51yiJV4DFziBSZ 2RZZhehRpi9Bsi9moEzGn eaUoH6prK0CjMJSuEQYyE ULzAmYitzWqs6Sun8AmeO TivLu2a4ljFVXmRSQvtNi em7qtIXG8XMWtO6S2wVKb n6dfXQlzTXRoaUO6mjM8B INfqYBoK8SvjW3jVVRrJM 0hjcs8x2bkDBY6QAqwSEA wLzD8egW2MOVwbRYhTMNg iVqrEWboa562CCM6GzWnW BNhp8BhB7FtxConZ95ulU jfR02fXYKolGfnsE3pdQz yjG8dLxJiMkAxHIyptMwc bGFpblxmMVxmczIwXGxhb wbcEPOnDYlbC1rmIzHmMG AooUerPElte6QjVAPoAGC wVrshatZcMYXqRY1KJMJE RiYPFDUQU33pnTdtiC5tI pKyRaYdSztiYF1jSABqK7 vsdMQbWXRwEQMfP0jlHdW mrJ7hvWolVXsapqXtBCTp clxwbGFpblxmMVxmczIwX BirlqxwBJVgTYaqT3psSo MwBXRkdFkvKYwrg4FqXKK fYIXlBcAyRv6SEMKWMZKl f8MkgWXgkcKdK0T0NABvv BtkifQisHApvj0qVQD1FG I8dQ6sEY1aNJTyU0HlmoI WIExlaWRlbiAoRjUgUjUw NlEsIGMuMTYwMUc+QSkuI UCdNCMfIYhhcBoqCL5wcU BiZSBpbmNyZWFzZWQgcml hvgKzk9FbxNdhy96hd6Sw peK9lCT2QXlfTHIop95mm WF3MKJoo5w7zTZ2uXpoQI 51iWG7cK1kJoqvMVTshRZ yXHBsYWluXGYxXGZzMjBc bGFuZzEwMzNcaGljaFxmM DxaIwQaHRUuAXcmE4ycSf WoR6KlRFImKhDnIeJMOKD CJ4DHVZ0KOGsmfPUgluww MVxmczIwXGxhbmcxMDMzX InnJ1mcFcEjTDLclUpdPN mer2RiJVAjYVJbOcJnaIJ hXJXEKIM1IHLvMPk0ynUb dZIdFZAtu85zhOmpZFXtQ CIdoLYvMKGyu8FnVOOvZZ QnEJQcquRnfYxlJIS7d6m oPaPmkZtfpMWtb1VwJ7or aGRhKAMlNPPySA7IIhYez k0dSHEgXm7ynZ76iB2zPY NBTk6oLVMyyfbcMTZlkRe ryZ4lVaLiEuGkRTeeZI4c MNIjG9agwPTxTCRqSFZkR 7abRnFiqG1bqRvtFJinIe VmEcTrERwzGYQFR0PADEk BPMLzxSscaL6iRpRoAfXq VvenQB8zNJFuO1tnsPNnN BGmOKLjL1blXbYteT3lxI xmMVxmczIyXHBhclxwbGF srkejFYwgqiW0BFqtzhdx SAAqOXygV6dxYhRsZFNel EryXZwhz3GsHRSvYNKgJg hxrhH2ONfcRMfocnPrAUW kemX5n1T0VTQexkXch6Pb XIM6BNB5CVdhugXvWACxf E3wGGYlHY9nJEr6gcGzhe CkaNNuL6XjTBWegmDuff9 lukSfDYWmJPGmL6Fhudtm jScunsJqVMSySDIdLV3wA FV0IWVyiH8eGAZqlINDYJ TNtnBvb4vkrJdpajTbKVt eIf2vBSWiwfcdRMLxvCVh iXHpaPPyYEFstg49WMNjU O9gR0vvLMEvGZHtdpMgkM Oui6KcSWEydGM2uMAbJmF MRbGfj5vpuvGzUVH5iTEw GlOHDKeshnTuJSUtli1mn cEbDSMcQFDcm2ZzgBIzkA Eun7CgkKOexpHoy8CqgrT fWRBtROI0LiVXnKPsNOkV TCBpcyBDQVAgYWNjcmVka JSxFYEdivPiI1MnoXlyfW VkIHVuZGVyIHRoZSBDbGl mlYNyaDSUUIBzdwC4u5U0 EQhiwHIminVsFE37IKIqQ M4ixGKjqNWhl2DpSMu8SE DxF7xOBQ06TBaoEVZddAN hbGlmaWVkIHRvIHBlcmZv ft9hvOeehSYzt00oaMM7z OW3CBQkb2CgacmaHODbDB luXGYxXGZzMjJcbGFuZzE wMzNcaGljaFxmMVxkYmNo HPQzUAhqH7rbGzCtAmKeU lxwYXJ9 [facility] Work Phone: Prothrombin Gene MutationOrd ered By: Anahi Edwards on 06-05-2023 Electronically signed and reported by Anahi Edwards MD PhD [facility] F2 gene c.[id number]>A genotype Molgen (Bld/Tiss) Heterozygous Abnormal Normal [facility] F2 gene c.[id number]>A genotype Molgen (Bld/Tiss) n1gfaPFhUCQcwYZmYtLtA CZgLXGjv5igRBPggJSuQr EwMzNcZnRuYmpcdWMxXGR uLlRtk8eom381cGJgt4mv JWJlGbJ9dIWtWIPjI30tE HONI054HBLtSBykg4tsu6 VgBGTfwJBkw7Q8LHEZGEx nYTWOJOx2qJesR39px7P2 VwrqQ2qzSXJxRIUdQ0IqW L9hZXFaKmi9DWD3ISM3BQ AnOKTwN1TcAZ9vJEVdpWO nSSy4l8dnmZqzWQYdUQD7 z7otISvbsiHmVC7isf2dd Kf6o3vzexHaJVLoTSOwpG UKSELtN9YacNgpRg7amGl 0rHtlHcesWHF1Bni2YJ9f td92moo0bQxxLTRrkuubK nS3CWyqVNTehgodWHx4WI gaZONpiDN8OVEypBLwE2I xQWYvLW3bmzx5GPF3PWir UVXbRkP5DPOcaDNyNTWoq UybIOqgn963IDQ0PoToBJ 9cK4Fet1K4wC6igYCsJMJ biVPlYkLnXTGrov2piMHr XOvwu0KfOMJ0jiJ0eQMmp LMyAMUuLI30Fjqkl8JkPk whf5MbH23igCU4BAqkDVO 5THUfsmYiu5Dbt7koLoBg oeAdA6alT0TwYMWaTFVzZ ADgVzGschDuy7Adp2IkeF IozQp6e4hlZLOlVQLrcEy ub0ozAJR9KRCxW5E4rWDx w8jmVVnrNVBvmWM5nuG9P HCckEFhH5GauO9eQUQpSY 0etok3u6yvNDX2TFmkLKL wTlC4xbM6RIGkvYZqYARl qDvjRWbio689FXW6EzAoE KFza9NxB6QeqUqbN57tzO ifS74uOQUzjZbmaH8qiMd nnW4kOaDtSmOxLGuhkYbm bGFpblxmMVxmczIwXGxhb sifHGEhRIelN6vxLgWdRR BjjZlzRCsts8PmPSLeFPD cPolprnYaVMXfTS0LMSYH NlQGJGEIE30hqDynlH9eV dPqHzLlKAdzKE4fMGYzQ4 wxqAZoVLUfYOWzU3wtQfO tzL6qqZbhHAzeekIbCMVn clxwYXJkXHBsYWluXGYwX VBgQwZraOrlgU2lHhQzFv VwTJbpRG7nBGOmQ8srgFG nDQAoUYUaY1suTdOlvS0a aFxmMVxmczIwIEhFVEVST 5aDW36FAsGwSAL3mJUynS 5kaWNhdGVzIHRoZSBwYXR hXE64YAhwZGhjfCUwr7i1 A074inZjl5SvIBZjsEtox 73mrW3iLLFlHRMoFpg0J2 c+QSAoRzIwMjEwQSkgcGF 5xP8kVQ5oEeW6YLLpQE50 RlRRgTodMKvjwx32hQXiN UldWTXgi84kaGZ1SZHph5 a3qORucAB3TBJgPVEjbYB vdMWzsMAeeXhhc13ejV4c bEN3EBrwGVZfWJLdmaDfI TVuUZRgvssdiuTab6GndW nlc21zn7Gria3mGW0soRG cYPWdpHNpXr88pmHmaV9v wVM4VBU6tPZkZEDfoAkco 90wtY8eQSFpIQZiUdz2K6 c+QSAoRzIwMjEwQSkgcGF 4sA1nQC7aCxA9HXSvVX17 GGCkm0XySINmNTRcq2Vdf 4ExLEScSQRyqTNtj3Uks6 0lRTF7DUTjw6udJuNqqK0 xiaKns8QtR4jvgQWcXOhi sMqjrWfcm04jf2YqbiloN PVga8WonRC9gNImvU6zwC hnMJWfz77xQEOqyDMfsLO bmJMdWIO3kZMnkQJ9OMke auXtWn9tJW23oPPvVDNps CflkDQuAR8pZTReWzqzWV WhtVnasOopvL0dVwXiPwJ yNFxwbGFpblxmMVxmczIw FAypuexuVRYoXRdhP0pgO nFjRTCohDqcQTnlt5FeRB YxXGZzMjBccGFyXHBsYWl uXGYxXGZzMjBcbGFuZzEw MzNcaGljaFxmMVxkYmNoX DWhQXthT8tyEkTrX9UwKZ RuHzJyNtAQOFZCW1KLLC4 HWVxwbGFpblxmMVxmczIw GJmlzytfFDGjHLurF6ogD cCeWYGwfLnhLXino8ZrHA YxXGZzMjBccGFyIEROQSB 7JOGkFBs2uxYcoDIfIZPd w33kbDgzKZWaSHCbbHWiH VMhb5MwXWJdIINnAAJcwk KfaFdxWBD2c2hgCtKhlXo apPMif7NxA6ratTWdQUTk UTKzAN6JRbJkqi7bLRXsV i9maH65rC4eOSRQRg1kVT JbbivlTVNhdFznwH6gXrD zVkCuAStgWE2lEGZaW4eu yAWbNBQqTPUcG3boBhOsk Q2jeVpyPTnmKhBcWkCgMB pwSJMJB3FCGVrXBNItpOv pbN6vQvQsWaNdARhrIT3b UUTtK3xkhOZjFKTzEBFjC 7yuNsPfpF4jbPpeARtwoq IwXHBhclxwbGFpblxmMVx iuuK2KCjyexvoXQMlOLik C4mjIwZkKFGkxPxpMPyag 9SxNGFsMFZeTwqesvW6QE tfWOdlrwKuVSItfdR3f9Y 0MEDjipUrk1AdAKS5LUD7 WXjncbNlHXJpcM3zCOUcQ F6aXEj7taVoozCizUGpW8 VnYMRfnfBedy2emsZyGGT gLJMnW6TothcdsAvcfhJd LIPtJFEiFW0cBSU3WHJph Y9gMCYxcSSFXCGSinOtg6 dwwTcdodOzTFcqKr7hTOV vcnkuIFRoaXMgdGVzdCBo BFOsvq84NKOwNM9sF9ofT JObOJPabwVaeDRir6RcSF SvrKO0zGUoOvKXDbLkj4a bggZgVHM6cSDkIrNVMHck ogEzIXNnxj0rhnNsYTIeS XMgr4YbdTSreTBev6FkaT RlkxEwh2UymeUeHRYuOIC 5LiBUaGUgVUhUTCBpcyBD QVAgYWNjcmVkaXRlZCBhb zGoF2GqwQlrhURcGOBpSZ VyIHRoZSBDbGluaWNhbCB WYBXqmgQ0d1U0JOciuYIr wvJcNU38TMVzZV7dpYRth TSbu8ChFIi5LNNsE7eUZK 04OCkgYXMgcXVhbGlmaWV cXQHaDKZfsrYduy9axBcu xTYjr20rgEU7tPT2HTZin 3RpbmcuXHBsYWluXGYxXG ZzMjJcbGFuZzEwMzNcaGl jaFxmMVxkYmNoXGYxXGxv V9pfYqNrUgVsBdiiNAT7 [facility] Interpretation and review of laboratory results Abnormal [facility] Antithrombin Ag actual/nerissa l IA (PPP) [Relative mass conc]on 05-31-2023 [facility] Antithrombin Antigenon 05-31 Antithrombin Ag actual/normal IA (PPP) [Relative mass conc] 103 % 82 - 136 % [facility] Comment on above: REFERENCE INTERVAL: Antithrombin Antigen Access complete set of age- and/or gender-specific reference intervals for this test in the [facility] Test Directory ([employer]). Performed By: [facility] [address] [place] [id number] Can Striper: Adria Toledo MD, PhD CLIA Number: [id number] Homocysteine [Moles/Vol]on 0 1-30-2024 Interpretation and review of laboratory results Normal [facility] Reference values apply to fasting specimens only. Non-fasting specimens produce slightly higher and likely clinically insignificant changes in homocysteine levels. [facility] Homocysteine, serumon 2023 Homocysteine [Moles/Vol] 6.68 umol/L 5.0 0 - 13.90 umol/L [facility] Antithrombin Ag actual/Nerissa ramón 05-29-2023 Antithrombin Ag actual/normal IA (PPP) [Relative mass conc] 103 % Normal 82-136 [facility] Comment on above: Result Comment: REFE RENCE INTERVAL: Antithrombin Antigen Access complete set of age- and/or gender-specific reference intervals for this test in the [facility] Test Directory ([employer]). Performed By: [facility] [address] [place] [id number] Can Striper: Adria Toledo MD, PhD CLIA Number: [id number] Performed By: #### 2 7812-7 #### [facility] ([facility]) ([id number]) [address] [place] [id number] F5 gene.p.[id number] 2023 ELECTRONICALLY SIGNED BY Anahi pierre MD PhD [facility] Comment on above: Performed By: #### 2 1668-9 #### JUANITA SWAN ([id number]) [facility] ([facility]) [facility] [place] [address] Performed By: #### G PRO2 #### JUANITA SWAN ([id number]) [facility] ([facility]) [facility] [place] [address] F5 gene p.[id number] Molgen Ql (Bld/Tiss) Normal Normal Normal [facility] Comment on above: Result Comment: INTE RPRETATION NORMAL result indicates there is no detection of Factor V Leiden (F5 R506Q, c.1601G>A). There would not be increased risk for thrombosis that is associated with this mutation. METHODOLOGY DNA was extracted from the specimen provided and analyzed using allele-specific TaqMan MGB probes following PCR. DISCLAIMER This laboratory developed test was developed and its analytical performance characteristics have been determined by [facility]. This test has not been cleared or approved by the FDA; however, the FDA has determined that such approval is not necessary. The [facility] is CAP accredited and certified under the Clinical Laboratory Improvement Amendments of 1988 (CLIA-88) as qualified to perform high complexity testing. Performed By: #### 2 1668-9 #### JUANITA SWAN ([id number]) [facility] ([facility]) [address] [place] [address] Folateon 05-29-2023 Folate [Mass/Vol] ng/mL Normal >5.0 [facility] Comment on above: Order Comment: Low < 3.4 Borderline 3.4-5.0 Normal >5.0 Patients receiving more than 5 mg/day of biotin may have interference in test results. A sample should be taken no sooner than eight hours after previous dose. Contact the testing laboratory for additional information. Performed By: #### 2 284-8 #### ALEKSANDRA ORTIZ ([id number]) [facility] ([facility]) [address] [place] [address] Folate [Mass/Vol] ng/mL 5.0 - PINF ng/mL [facility] Folate [Mass/Vol]on 05-29-19 Interpretation and review of laboratory results Normal [facility] Low <3.4 Borderline 3.4-5.0 Normal >5.0 Patients receiving more than 5 mg/day of biotin may have interference in test results. A sample should be taken no sooner than eight hours after previous dose. Contact the testing laboratory for additional information. [facility] Homocysteineon 05-29-2023 Homocysteine [Moles/Vol] 6.68 umol/L Normal 5.00-13.90 [facility] Comment on above: Order Comment: Refer ence values apply to fasting specimens only. Non-fasting specimens produce slightly higher and likely clinically insignificant changes in homocysteine levels. 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 This genotype is associated with elevated plasma prothrombin levels and increased risk for thrombosis. Individuals found to have the Prothrombin (F2) c.*97G>A (F72857Q) pathogenic variant should be counseled about secondary risk factors associated with thrombosis, as well the implications this test result may have for other family members. METHODOLOGY DNA was extracted from the specimen provided and analyzed using allele-specific TaqMan MGB probes following PCR. DISCLAIMER This laboratory developed test was developed and its analytical performance characteristics have been determined by [facility]. This test has not been cleared or approved by the FDA; however, the FDA has determined that such approval is not necessary. The [facility] is CAP accredited and certified under the Clinical Laboratory Improvement Amendments of 1988 (CLIA-88) as qualified to perform high complexity testing. Performed By: #### G PRO2 #### JUANITA SWAN ([id number]) [facility] ([facility]) [address] [place] [address] Basophil percentageOrdered B y: Ezekiel Love on 05-26-2023 Bilirubin [Mass/Vol] 0.20 mg/dL 0.20-1.00 [facility] Comment on above: For patients on eltr ombopag therapy, use of [facility] [place] TBIL is not recommended. Chloride [Moles/Vol] 103 mmol/L 98-107 [facility] Glucose [Mass/Vol] 84 mg/dL 74-106 [facility] Hemoglobin (Bld) [Mass/Vol] 13.3 g/dL 12.0-15. 0 [facility] Potassium [Moles/Vol] 4.2 mmol/L 3.5-5.1 [facility] Protein [Mass/Vol] 7.4 g/dL 6.4-8.2 [facility] Sodium [Moles/Vol] 137 mmol/L 136-145 [facility] WBC (Bld) [#/Vol] 9.0 10*3/uL 4.4-11.0 [facility] Determination of erythrocyte mean corpuscular volume (MCV)Ordered By: Ezekiel Love on 05-26-2023 MCV (RBC) [Entitic vol] 85.1 fL 81-99 [facility] Erythrocyte distribution wid th ratioOrdered By: Ezekiel Love on 05-26-2023 Erythrocyte distribution width (RBC) [Ratio] 14.3 % 11.6-14.6 [facility] Erythrocyte distribution wid th standard deviationOrdered By: Ezekiel Love on 05-26-2023 Erythrocyte distribution width (RBC) [Entitic vol] 44.1 fL 35.1-43.9 [facility] Erythrocyte sedimentation ra teOrdered By: Ezekiel Love on 05-26-2023 ESR (Bld) [Velocity] 19 mm/h 0-30 [facility] Hematocrit Auto (Bld) [Volum e fraction]Ordered By: Ezekiel Love on 05-26-2023 Hematocrit (Bld) [Volume fraction] 41.6 % 37-47 [facility] Laboratory - Chemistry and C hemistry - challengeOrdered By: Ezekiel Love on 05-26-2023 Albumin/Globulin [Mass ratio] 0.9 {ratio} 0.9-2.4 [facility] ALP [Catalytic activity/Vol] 72 U/L 45-117 [facility] ALT [Catalytic activity/Vol] 23 U/L 13-56 [facility] CO2 [Moles/Vol] 27.0 mmol/L 21.0-32.0 [facility] Globulin (S) [Mass/Vol] 3.9 g/dL 2.2-4.2 [facility] Urea nitrogen/Creatinine [Mass ratio] 29.1 mg/mg 10-20 [facility] Laboratory - Hematology and Cell countsOrdered By: Ezekiel Love on 05-26-2023 MCH (RBC) [Entitic mass] 27.2 pg 27.0-32.0 [facility] MCHC (RBC) [Mass/Vol] 32.0 g/dL 32-36 [facility] Platelets (Bld) [#/Vol] 447 10*3/uL 150-450 [facility] No Panel InformationOrdered By: Ezekiel Love on 05-26-2023 C-Reactive Protein Extended Range 19.00 mg/L 0.0-3.0 [facility] Comment on above: C-Reactive Protein ( CRP) provides useful information for thediagnosis, therapy and monitoring of inflammatory processesand associated diseases. For the evaluation of Relative Riskfor Cardiovascular Disease, a High Sensitivity CRP (HSCRP)should be ordered. Estimated GFR (MDRD) Amer 138 mL/min >60 [facility] Comment on above: GFR Calc Estimated GFR (MDRD) Non-Af Amer 114 mL/min >60 [facility] Comment on above: Non- GFR Calc Platelet mean volume Mert-Ec ker (Bld) [Entitic vol]Ordered By: Ezekiel Love on 05-26-2023 Platelet mean volume (Bld) [Entitic vol] 8.8 fL 6.2-12.0 [facility] RBC Auto (Bld) [#/Vol]Ordere d By: Ezekiel Love on 05-26-2023 RBC (Bld) [#/Vol] 4.89 10*6/uL 4.2-5.4 [facility] Serum or plasma calcium cuauhtemoc urement (mass/volume)Ordered By: Ezekiel Love on 05-26-2023 Calcium [Mass/Vol] 8.9 mg/dL 8.5-10.1 [facility] Serum or plasma creatinine m easurement (mass/volume)Ordered By: Ezekiel Love on 05-26-2023 Creatinine [Mass/Vol] 0.58 mg/dL 0.55-1.02 [facility] Comment on above: The validity of the calculated GFR & GFRAA in patients over 70 years has not been determined. Clinical correlation is essential. Serum or plasma urea nitroge n measurement (mass/volume)Ordered By: Ezekiel Love on 05-26-2023 Urea nitrogen [Mass/Vol] 17 mg/dL 7-18 [facility] Thin prep Papanicolaou smear with manual screeningOrdered By: Ezekiel Love on 05-26-2023 Thin prep Papanicolaou smear with manual screening 3.5 g/dL 3.2-5.0 [facility] Thin prep Papanicolaou smear with manual screening 18 U/L 15-37 [facility] Thin prep Papanicolaou smear with manual screening 7 5-15 [facility] Absolute lymphocyte countOrd ered By: Sher Simpson on 10-14-2022 Lymphocytes Auto (Unsp spec) [#/Vol] 2.59 10*3/uL 0.83-4.51 [facility] Basophil percentageOrdered B y: Sher Simpson on 10-14-2022 Basophils/100 WBC (Bld) 0.8 % 0-1 [facility] Bilirubin [Mass/Vol] 0.20 mg/dL 0.20-1.00 [facility] Comment on above: For patients on eltr ombopag therapy, use of [place] [place] TBIL is not recommended. Chloride [Moles/Vol] 103 mmol/L 98-107 [facility] Eosinophils/100 WBC (Bld) 1.9 % 0-5 [facility] Glucose [Mass/Vol] 100 mg/dL 74-106 [facility] Comment on above: Fasting Glucose resu lt from 100 to 125 mg/dL suggests IMPAIRED HOMEOSTASIS per A.D.A. criteria. Neutrophils (Bld) [#/Vol] 3.0 10*3/uL 2.0-7.7 [facility] Neutrophils/100 WBC (Bld) 47.1 % 47-70 [facility] Potassium [Moles/Vol] 3.7 mmol/L 3.5-5.1 [facility] Protein [Mass/Vol] 7.5 g/dL 6.4-8.2 [facility] Sodium [Moles/Vol] 137 mmol/L 136-145 [facility] WBC (Bld) [#/Vol] 6.3 10*3/uL 4.4-11.0 [facility] Blood erythrocytes count (nu mber/volume)Ordered By: Sher Simpson on 10-14-2022 RBC (Bld) [#/Vol] 4.62 10*6/uL 4.2-5.4 [facility] Blood hemoglobin measurement (mass/volume)Ordered By: Sher Simpson on 10-14-2022 Hemoglobin (Bld) [Mass/Vol] 12.8 g/dL 12.0-15. 0 [facility] Blood lymphocytes/100 leukoc ytesOrdered By: Sher Simpson on 10-14-2022 Lymphocytes/100 WBC (Bld) 41.2 % 19-41 [facility] Blood monocytes/100 leukocyt esOrdered By: Sher Simpson on 10-14-2022 Monocytes/100 WBC (Bld) 8.7 % 0-10 [facility] Blood platelet mean volumeOr dered By: Sher Simpson on 10-14-2022 Platelet mean volume (Bld) [Entitic vol] 9.1 fL 6.2-12.0 [facility] Determination of erythrocyte mean corpuscular volume (MCV)Ordered By: Sher Simpson on 10-14-2022 MCV (RBC) [Entitic vol] 87.0 fL 81-99 [facility] Erythrocyte sedimentation ra teOrdered By: Sher Simpson on 10-14-2022 ESR (Bld) [Velocity] 9 mm/h 0-30 [facility] Hematocrit Auto (Bld) [Volum e fraction]Ordered By: Sher Simpson on 10-14-2022 Hematocrit (Bld) [Volume fraction] 40.2 % 37-47 [facility] Laboratory - Chemistry and C hemistry - challengeOrdered By: Sher Simpson on 10-14-2022 ALP [Catalytic activity/Vol] 68 U/L 45-117 [facility] ALT [Catalytic activity/Vol] 22 U/L 13-56 [facility] CO2 [Moles/Vol] 28.0 mmol/L 21.0-32.0 [facility] Cobalamin (Vitamin B12) [Mass/Vol] 1782 pg/mL 211-911 [facility] Globulin (S) [Mass/Vol] 3.7 g/dL 2.2-4.2 [facility] Urea nitrogen/Creatinine [Mass ratio] 23.9 mg/mg 10-20 [facility] - Hematology and Cell countsOrdered By: Sher Simpson on 10-14-2022 Erythrocyte distribution width (RBC) [Entitic vol] 45.2 fL 35.1-43.9 [facility] Erythrocyte distribution width (RBC) [Ratio] 14.2 % 11.6-14.6 [facility] Immature granulocytes/100 WBC (Bld) 0.300 % 0.0-0.9 [facility] Comment on above: IG% - Immature Granu locytes (promyelocytes, myelocytes and metamyelocytes) > 1% indicates that a LEFT SHIFT is Present. MCH (RBC) [Entitic mass] 27.7 pg 27.0-32.0 [facility] Nucleated RBC/100 WBC (Bld) [Ratio] 0 % 0-5 [facility] MCHC Auto (RBC) [Mass/Vol]Or dered By: Sher Simpson on 10-14-2022 MCHC (RBC) [Mass/Vol] 31.8 g/dL 32-36 [facility] No Panel InformationOrdered By: Sher Simpson on 10-14-2022 Anti-Nuclear Antibody Screen Positive Negative [facility] Comment on above: Performed at: [address] [id number] Director: Ezekiel Murillo PhD, Phone: [phone] Estimated GFR (MDRD) Amer 138 mL/min >60 [facility] Comment on above: GFR Calc Estimated GFR (MDRD) Non-Af Amer 114 mL/min >60 [facility] Comment on above: Non- GFR Calc Thyroid Stimulating Hormone (TSH) 1.32 uIU/mL 0.358-3.74 [facility] Vitamin D 25-Hydroxy 54.6 ng/mL [facility] Comment on above: Vitamin D 25(OH) Sta tus Range Deficiency <20 ng/mL (50nmol/L) Insufficiency 20 - 30 ng/mL (50 - 75 nmol/L) Sufficiency 30 - 100 ng/mL (75 - 250 nmol/L) Toxicity >100 ng/mL (>250 nmol/L) Platelets bldOrdered By: Sg Simpson on 10-14-2022 Platelets (Bld) [#/Vol] 368 10*3/uL 150-450 [facility] Serum or plasma C reactive p rotein measurement (mass/volume)Ordered By: Sher Simpson on 10-14-2022 CRP [Mass/Vol] 7.09 mg/L 0.0-3.0 [facility] Comment on above: C-Reactive Protein ( CRP) provides useful information for thediagnosis, therapy and monitoring of inflammatory processesand associated diseases. For the evaluation of Relative Riskfor Cardiovascular Disease, a High Sensitivity CRP (HSCRP)should be ordered. Serum or plasma albumin cuauhtemoc urement (mass/volume)Ordered By: Sher Simpson on 10-14-2022 Albumin [Mass/Vol] 3.8 g/dL 3.2-5.0 [facility] Serum or plasma albumin/glob ulin mass ratioOrdered By: Sher Simpson on 10-14-2022 Albumin/Globulin [Mass ratio] 1.0 {ratio} 0.9-2.4 [facility] Serum or plasma calcium cuauhtemoc urement (mass/volume)Ordered By: Sher Simpson on 10-14-2022 Calcium [Mass/Vol] 8.6 mg/dL 8.5-10.1 [facility] Serum or plasma creatinine m easurement (mass/volume)Ordered By: Sher Simpson on 10-14-2022 Creatinine [Mass/Vol] 0.59 mg/dL 0.55-1.02 [facility] Comment on above: The validity of the calculated GFR & GFRAA in patients over 70 years has not been determined. Clinical correlation is essential. Serum or plasma urea nitroge n measurement (mass/volume)Ordered By: Sher Simpson on 10-14-2022 Urea nitrogen [Mass/Vol] 14 mg/dL 7-18 [facility] Serum rheumatoid factor dete ctionOrdered By: Sher Simpson on 10-14-2022 Rheumatoid factor Ql (S) < 10.0 IU/mL <15 [facility] Thin prep Papanicolaou smear with manual screeningOrdered By: Sher Simpson on 10-14-2022 Thin prep Papanicolaou smear with manual screening 22 U/L 15-37 [facility] Thin prep Papanicolaou smear with manual screening 6 5-15 [facility] SURGon 06-15-2018 SURG Patient Name: SANDRA TEIXEIRA Source A. Breast mammoplasty, Right B. Breast mammoplasty, Left Clinical History Breast Ptosis Bilateral Diagnosis A. Fibrofatty breast tissue with fibrocystic changes. B. Fibrofatty breast tissue with fibrocystic changes. Gross Description A. The specimen is received fresh designated right breast tissue and consists of numerous fragments of yellow-allan fibroadipose tissue measuring 11.6 x 5.8 x 5.1 cm in aggregate. These have an aggregate weight of 114 g. The cut surfaces are composed of approximately 90% fibrous tissue and 10% adipose tissue. A few simple cysts, measuring up to 0.6 cm in greatest dimension, are seen. Also submitted is an irregularly-shaped fragment of white-allan skin measuring 12.7 x 8.2 x 0.2 cm. No discrete skin lesions are identified. Shipping And Receiving Clerk sections are submitted in cassettes 1-4. Date/Time of fresh tissue collected: 06/15/2018 @ 10:35 a.m. Date/Time tissue placed in formalin: 06/15/2018 @ 12:36 p.m. Date/Time removed from formalin: 06/17/2018@ 06:45 p.m. B. The specimen is received fresh designated left breast tissue and consists of numerous fragments of bca-agbl-fopdgv fibroadipose tissue measuring 10.2 x 7.2 x 4.4 cm in aggregate. These have an aggregate weight of 108 g. The cut surfaces are composed of approximately 70% fibrous tissue and 30% adipose tissue. Also submitted is an irregularly-shaped piece of white-allan skin measuring 12.6 x 8.7 x 0.3 cm. Shipping And Receiving Clerk sections are submitted in cassettes 1-4. Date/Time of fresh tissue collected: 06/15/2018 @ 10:35 a.m. Date/Time tissue placed in formalin: 06/15/2018 @ 12:36 p.m. Date/Time removed from formalin: 06/17/2018@ 06:45 p.m. JF;lat (ICT/lt) Electronically Signed By Arturo Torres MD , Pathologist (Case signed 06/18/2018) Normal [facility] Vital Signs Date Time Vital Sign Value Performing Clinician Facility 10-07-2024 10:10-0400 Body mass index (BMI) [Ratio] 24.9 kg/m2 Sabi Arnett MD Work Phone: [facility] 10-07-2024 10:10-0400 Body temperature 97.3 [degF] Sabi Arnett MD Work Phone: [facility] 10-07-2024 10:10-0400 Body weight 64.86 kg Sabi Arnett MD Work Phone: [facility] 10-07-2024 10:10-0400 Diastolic blood pressure 63 mm[Hg] Sabi Arnett MD Work Phone: [facility] 10-07-2024 10:10-0400 Heart rate 73 /min Sabi Arnett MD Work Phone: [facility] 10-07-2024 10:10-0400 Respiratory rate 18 /min Sabi Arnett MD Work Phone: [facility] 10-07-2024 10:10-0400 SaO2% (BldA) [Mass fraction] 97 % Sabi Arnett MD Work Phone: [facility] 10-07-2024 10:10-0400 Systolic blood pressure 100 mm[Hg] Sabi Arnett MD Work Phone: [facility] 08-22-2024 07:54-0400 Body mass index (BMI) [Ratio] 26.3 kg/m2 Sabi Arnett MD Work Phone: [facility] 08-22-2024 07:54-0400 Body temperature 97.5 [degF] Sabi Arnett MD Work Phone: [facility] 08-22-2024 07:54-0400 Body weight 68.49 kg Sabi Arnett MD Work Phone: [facility] 08-22-2024 07:54-0400 Diastolic blood pressure 71 mm[Hg] Sabi Arnett MD Work Phone: [facility] 08-22-2024 07:54-0400 Heart rate 83 /min Sabi Arnett MD Work Phone: [facility] 08-22-2024 07:54-0400 Respiratory rate 18 /min Sabi Arnett MD Work Phone: [facility] 08-22-2024 07:54-0400 SaO2% (BldA) [Mass fraction] 95 % Sabi Arnett MD Work Phone: [facility] 08-22-2024 07:54-0400 Systolic blood pressure 116 mm[Hg] Sabi Arnett MD Work Phone: [facility] 06-23-2023 10:36-0500 Body height 159.5 cm Librado Dalton JOURNEYMAN PRESS OPERATOR-FINISHER POLISHER Work Phone: [facility] 06-23-2023 10:36-0500 Body mass index (BMI) [Ratio] 27.53 kg/m2 Librado Dalton JOURNEYMAN PRESS OPERATOR-FINISHER POLISHER Work Phone: [facility] 06-23-2023 10:36-0500 Body temperature 97.5 [degF] Librado Dalton JOURNEYMAN PRESS OPERATOR-FINISHER POLISHER Work Phone: [facility] 06-23-2023 10:36-0500 Body weight 70.03 kg Librado Dalton JOURNEYMAN PRESS OPERATOR-FINISHER POLISHER Work Phone: [facility] 06-23-2023 10:36-0500 Diastolic blood pressure 79 mm[Hg] Librado Dalton JOURNEYMAN PRESS OPERATOR-FINISHER POLISHER Work Phone: [facility] 06-23-2023 10:36-0500 Heart rate 76 /min Librado Dalton JOURNEYMAN PRESS OPERATOR-FINISHER POLISHER Work Phone: [facility] 06-23-2023 10:36-0500 Respiratory rate 16 /min Librado Dalton JOURNEYMAN PRESS OPERATOR-FINISHER POLISHER Work Phone: [facility] 06-23-2023 10:36-0500 SaO2% (BldA) [Mass fraction] 95 % Librado Dalton JOURNEYMAN PRESS OPERATOR-FINISHER POLISHER Work Phone: [facility] 06-23-2023 10:36-0500 Systolic blood pressure 119 mm[Hg] Librado Dalton JOURNEYMAN PRESS OPERATOR-FINISHER POLISHER Work Phone: [facility] 05-29-2023 13:03-0500 Body height 159.5 cm Librado Dalton JOURNEYMAN PRESS OPERATOR-FINISHER POLISHER Work Phone: [facility] 05-29-2023 13:03-0500 Body mass index (BMI) [Ratio] 27.89 kg/m2 Librado Dalton JOURNEYMAN PRESS OPERATOR-FINISHER POLISHER Work Phone: [facility] 05-29-2023 13:03-0500 Body temperature 97.7 [degF] Librado Dalton JOURNEYMAN PRESS OPERATOR-FINISHER POLISHER Work Phone: [facility] 05-29-2023 13:03-0500 Body weight 70.94 kg Librado Dalton JOURNEYMAN PRESS OPERATOR-FINISHER POLISHER Work Phone: [facility] 05-29-2023 13:03-0500 Diastolic blood pressure 76 mm[Hg] Librado Dalton JOURNEYMAN PRESS OPERATOR-FINISHER POLISHER Work Phone: [facility] 05-29-2023 13:03-0500 Heart rate 89 /min Librado Dalton JOURNEYMAN PRESS OPERATOR-FINISHER POLISHER Work Phone: [facility] 05-29-2023 13:03-0500 Respiratory rate 16 /min Librado Dalton JOURNEYMAN PRESS OPERATOR-FINISHER POLISHER Work Phone: [facility] 05-29-2023 13:03-0500 SaO2% (BldA) [Mass fraction] 96 % Librado Dalton JOURNEYMAN PRESS OPERATOR-FINISHER POLISHER Work Phone: [facility] 05-29-2023 13:03-0500 Systolic blood pressure 126 mm[Hg] Librado Dalton JOURNEYMAN PRESS OPERATOR-FINISHER POLISHER Work Phone: [facility] 02-04-2022 11:53-0400 Body temperature 97.7 [degF] Elliott Llamas JOURNEYMAN PRESS OPERATOR.FINISHER POLISHER Work Phone: [facility] 02-04-2022 11:53-0400 Body weight 68.58 kg Elliott Llamas JOURNEYMAN PRESS OPERATOR.FINISHER POLISHER Work Phone: [facility] 02-04-2022 11:53-0400 Diastolic blood pressure 66 mm[Hg] Elliott Llamas JOURNEYMAN PRESS OPERATOR.FINISHER POLISHER Work Phone: [facility] 02-04-2022 11:53-0400 Heart rate 82 /min Elliott Llamas JOURNEYMAN PRESS OPERATOR.FINISHER POLISHER Work Phone: [facility] 02-04-2022 11:53-0400 Respiratory rate 18 /min [facility] JOURNEYMAN PRESS OPERATOR.FINISHER POLISHER Work Phone: [facility] 02-04-2022 11:53-0400 SaO2% (BldA) [Mass fraction] 95 % Elliott Llamas JOURNEYMAN PRESS OPERATOR.FINISHER POLISHER Work Phone: [facility] 02-04-2022 11:53-0400 Systolic blood pressure 116 mm[Hg] [facility] JOURNEYMAN PRESS OPERATOR.FINISHER POLISHER Work Phone: [facility] Encounters Encounter Date Encounter Type Care Provider Facility Start: 10-07-2024 End: 10-07-[address] Best Santana DO -[facility] Work Phone: Start: 10-07-2024 End: 10-07-2024 ambulatory Best Santana Facility:[facility] Start: 09-19-2024 End: 09-19-2024 ambulatory Sabi Arnett MD Work Phone: [facility] Work Phone: Start: 09-19-2024 End: 09-19-[address] Best Santana DO -Pulmonary Services/Neurology Work Phone: Start: 09-19-2024 End: 09-19-2024 ambulatory Best Santana Facility:[facility] Start: 08-22-2024 End: 08-22-[address] Best Santana DO -[facility] Work Phone: Start: 08-22-2024 End: 08-22-2024 ambulatory Best Santana Facility:[facility] Start: 08-22-2024 End: 08-22-2024 ambulatory Best Santana Facility:[facility] Start: 08-06-2024 End: 08-06-2024 ambulatory Sabi Arnett MD Work Phone: [facility] Work Phone: Start: 08-06-2024 End: 08-06-[address] Sabi Arnett MD -[facility] Work Phone: Start: 08-06-2024 End: 08-06-2024 ambulatory Sabi Arnett Facility:[facility] Start: 07-08-2024 End: 07-08-2024 ambulatory Sabi Arnett MD Work Phone: [facility] Work Phone: Start: 07-08-2024 End: 07-08-[address] Ezekiel Love MD -Laboratory Work Phone: Start: 07-08-2024 End: 07-08-2024 ambulatory Sabi Arnett Facility:[facility] Start: 06-14-2024 End: 06-14-2024 ambulatory SAADIA LOZADA Facility:[facility] Start: 06-14-2024 End: 06-14-2024 Subsequent hospital visit by physician [facility] Ws (I-Stat) Work Phone: Cat Scan Start: 04-26-2024 Encounter for other [facility]ced[facility] Start: 03-26-2024 End: 03-26-2024 ambulatory Sabi Arnett Facility:[facility] Start: 03-26-2024 End: 03-26-2024 Non-patient / Non-visit Dr. Óscar Hurley MD -[facility] Work Phone: Start: 03-26-2024 End: 03-26-[address] Saadia Lozada MD -Pulmonary Services/Neurology Work Phone: Start: 03-26-2024 End: 03-26-2024 ambulatory Sabi Arnett Facility:[facility] Start: 03-21-2024 End: 03-21-2024 Patient encounter procedure Helen Duff NP-C -Cardiovascular Services Work Phone: Start: 03-21-2024 End: 03-21-2024 ambulatory Helen Duff NP Facility:[facility] Start: 03-20-2024 End: 03-20-2024 Patient encounter procedure Helen Duff NP-C -Radiology, [place] Work Phone: Start: 03-20-2024 End: 03-20-2024 ambulatory Helen Duff RAILWAY TRACK WORKER Facility:[facility] Start: 03-01-2024 End: 03-01-2024 ambulatory Fani Bay Facility:[facility] Start: 03-01-2024 End: 03-01-2024 ambulatory Fani Bay Facility:[facility] Start: 12-05-2023 End: 12-05-2023 ambulatory Matthew English Facility:[facility] Start: 08-09-2023 End: 08-09-2023 ambulatory [facility] Work Phone: Start: 08-09-2023 End: 08-09-2023 Patient encounter procedure [facility]-Laboratory, [place] Work Phone: Start: 07-18-2023 End: 07-18-2023 ambulatory [facility] Work Phone: Start: 07-18-2023 End: 07-18-2023 Patient encounter procedure [facility]-Radiology, [facility] Work Phone: Start: 06-26-2023 End: 06-26-2023 ambulatory [facility] Work Phone: Start: 06-26-2023 End: 06-26-2023 Patient encounter procedure [facility]-Laboratory, [place] Work Phone: Start: 06-23-2023 End: 06-23-2023 ambulatory [facility] Start: 06-23-2023 End: 06-23-2023 Office outpatient visit 15 minutes Librado Dalton JOURNEYMAN PRESS OPERATOR-FINISHER POLISHER Work Phone: [facility] [place] Comment on above: History of prothromb in mutation; Family history of prothrombin gene mutation Start: 05-29-2023 End: 05-29-2023 ambulatory [facility] Start: 05-29-2023 End: 05-29-2023 Office outpatient new 60 minutes Librado Dalton JOURNEYMAN PRESS OPERATOR-FINISHER POLISHER Work Phone: [facility] [place] Comment on above: History of prothromb in mutation (Primary Dx); Family history of prothrombin gene mutation Start: 05-26-2023 End: 05-26-2023 ambulatory [facility] Work Phone: Start: 05-26-2023 End: 05-26-2023 Patient encounter procedure [facility] Work Phone: Start: 03-01-2023 ambulatory Anya Pierre Work Phone: [facility] Start: 10-14-2022 End: 10-14-2022 ambulatory [facility] Work Phone: Start: 10-14-2022 End: 10-14-2022 Patient encounter procedure [facility] Start: 06-06-2022 Refill Lilly Older JOURNEYMAN PRESS OPERATOR .FINISHER POLISHER Work Phone: Internal [facility] Comment on above: Refill Request Start: 04-26-2022 Refill Lilly Older JOURNEYMAN PRESS OPERATOR .FINISHER POLISHER Work Phone: [facility] Comment on above: Refill Request Start: 03-09-2022 ambulatory Anya Pierre Work Phone: [facility] Start: 02-04-2022 End: 02-04-2022 Patient encounter procedure Elliott Llamas JOURNEYMAN PRESS OPERATOR.FINISHER POLISHER Work Phone: [facility] Comment on above: Acute maxillary sinu sitis, 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 (Primary Dx) Start: 01-12-2022 Refill Lilly Older JOURNEYMAN PRESS OPERATOR .FINISHER POLISHER Work Phone: Internal [facility] Comment on above: Refill Request Start: 01-04-2022 Refill Anya Pierre Work Phone: Internal [facility] Comment on above: Refill Request Start: 12-30-2021 Refill Lilly Older JOURNEYMAN PRESS OPERATOR .FINISHER POLISHER Work Phone: Internal [facility] Comment on above: Refill Request Refill Start: 12-10-2021 Refill Anya Pierre Work Phone: [facility] [place] Comment on above: Refill Request Start: 10-06-2021 End: 10-06-2021 Patient encounter procedure Lilly Rice APRN.FINISHER POLISHER Work Phone: [facility] [place] Comment on above: Insomnia, unspecifie d type (Primary Dx); Abnormal coagulation profile; Vitamin B12 deficiency; Lipid screening; Annual physical exam; Primary insomnia Start: 10-06-2021 End: 10-06-2021 Telemedicine consultation with patient Lilly Rice APRN.FINISHER POLISHER Work Phone: [facility] Start: 09-09-2021 Refill Lilly MillsFINISHER POLISHER Work Phone: [facility] [place] Comment on above: Refill Request Start: 09-09-2021 Refill Anya Pierre Work Phone: [facility] [place] Comment on above: Refill Request Start: 07-28-2021 End: 07-28-2021 [facility] Leobardo POOLE Work Phone: Sleep Psychology Comment on above: Moderate episode of recurrent major depressive disorder (HCC) (Primary Dx); Chronic insomnia Start: 06-15-2018 End: 06-15-2018 Patient encounter procedure Curtis Calloway Facility:[facility] Procedure Procedure Detail Performing Clinician Start: 08-22-2024 Alternaria alternata LORRAINE Arnett MD Work Phone: Start: 08-22-2024 Citizen [place] cockroach LORRAINE Arnett MD Work Phone: Start: 08-22-2024 ALBERTINA measurement Sabi Arnett MD Work Phone: Comment on above: Performed at: [address] [id number] Director: Ezekiel Murillo PhD, Phone: [phone] at: [facility] Lab[address] [id number] Director: Benjie Zaman MD, Phone: [phone] Start: 08-22-2024 Antibody measurement Ch sravan Arnett MD Work Phone: Comment on above: The atypical pANCA p attern has been observed in asignificant percentage of patients with ulcerative colitis,primary sclerosing cholangitis and autoimmune hepatitis. Start: 08-22-2024 Antibody to centrome re measurement Sabi Arnett MD Work Phone: Start: 08-22-2024 Antibody to extracta ble nuclear antigen measurement Sabi Arnett MD Work Phone: Start: 08-22-2024 Antibody to PRECIOUS-1 measurement Sabi Arnett MD Work Phone: Start: 08-22-2024 Antibody to lupus La protein measurement Sabi Arnett MD Work Phone: Start: 08-22-2024 Antibody to SS-A measurement Sabi Arnett MD Work Phone: Start: 08-22-2024 Autoantibody measurement Sabi Arnett MD Work Phone: Start: 08-22-2024 Box elder RAST Sabi carter MD Work Phone: Start: 08-22-2024 Cat dander RAST Sabi Arnett MD Work Phone: Start: 08-22-2024 Common ragweed RAST Rakel Arnett MD Work Phone: Start: 08-22-2024 Common silver birch RAST Sabi Arnett MD Work Phone: Start: 08-22-2024 House dust mite (Df) RAST Sabi Arnett MD Work Phone: Start: 08-22-2024 Lyme disease test Piop Arnett MD Work Phone: Start: 08-22-2024 Lyme immunoblot test Holger Arnett MD Work Phone: Start: 08-22-2024 Mouse urine proteins RAST Sabi Arnett MD Work Phone: Start: 08-22-2024 Pecan nut RAST Sabi carter MD Work Phone: Start: 08-22-2024 Penicillium chrysogenum RAST Sabi Arnett MD Work Phone: Start: 08-22-2024 HAND REAMER antibody measurement Sabi Arnett MD Work Phone: Start: 08-22-2024 Tree pollen RAST Sabi Arnett MD Work Phone: Start: 08-22-2024 [place] pollen RAST Sabi Arnett MD Work Phone: Start: 08-06-2024 ALBERTINA measurement Sabi Arnett MD Work Phone: Comment on above: *Additional results available. Contact laboratory/see report* Negative <1:80 Borderline 1:80 Positive >1:80 Start: 08-06-2024 Antibody titer measurement Sabi Arnett MD Work Phone: Comment on above: Test not performed Start: 08-06-2024 Laboratory data interpretation Sabi Arnett MD Work Phone: Comment on above: Results are consiste nt with the presence of a lupus anticoagulant. As onlypersistent lupus anticoagulant (LA) positivity meets laboratory diagnosticcriteria for antiphospholipid syndrome, repeat testing in 12 or more weeksis recommended, ideally in the absence of anticoagulant therapy.Important Note: The results of LA testing are not valid for patientsreceiving heparin, direct Xa inhibitor (e.g., rivaroxaban, apixaban) ordirect thrombin inhibitor (e.g., dabigatran) therapy. These drugs may causefalse positive LA results but will not interfere with anticardiolipin andbeta-2 glycoprotein 1 antibody testing.Performed at: [address] [id number] Director: Benjie Zaman MD, Phone: [phone] Start: 08-06-2024 Lupus anticoagulant assay, platelet neutralization method Sabi Arnett MD Work Phone: Start: 08-06-2024 Lupus anticoagulant screening test Sabi Arnett MD Work Phone: Start: 08-06-2024 Prothrombin time Sabi Arnett MD Work Phone: Start: 08-06-2024 Vitamin D, 25-hydrox y measurement Sabi Arnett MD Work Phone: Comment on above: Vitamin D StatusDefi ciency: <20 ng/mL (50nmol/L)Insufficiency: 20-30 ng/mL (50-75 nmol/L)Sufficiency: 30-100 ng/mL (75-250 nmol/L)Toxicity: >100 ng/mL (>250 nmol/L) Start: 07-08-2024 Scallop LORRAINE Dillard Work Phone: Start: 07-08-2024 Sesame seed LORRAINE Arnett MD Work Phone: Comment on above: Performed at: [address] [id number] Director: Benjie Zaman MD, Phone: [phone] Start: 07-08-2024 [facility] LORRAINE Dillard Work Phone: Start: 06-14-2024 Ct maxillofacial w/o contrast material [facility] Provider Start: 03-20-2024 Plain X-ray of tibia and fibula Sabi Arnett MD Work Phone: Start: 07-18-2023 Radiography of esophagus Start: 06-23-2023 ONCBCN CLINIC APPOIN TMENT REQUEST LIBRADO DALTON Start: 05-29-2023 ANTITHROMBIN III ANTIGEN LIBRADO DALTON Start: 05-29-2023 FACTOR V LEIDEN LIBRADO DALTON Start: 05-29-2023 FOLATE LIBRADO Kaur Start: 05-29-2023 HOMOCYSTEINE LIBRADO Kaur Start: 05-29-2023 PROTEIN C ACTIVITY LAUREN DALTON Start: 05-29-2023 PROTEIN S ANTIGEN, FREE LIBRADO DALTON Start: 05-29-2023 PROTHROMBIN GENE MUT ATION ANALYSIS LIBRADO DALTON Start: 05-29-2023 Assay of folic acid serum Librado Dalton [facility] Work Phone: Start: 05-29-2023 F5 coagulation facto r v anal leiden variant Librado Dalton JOURNEYMAN PRESS OPERATOR-FINISHER POLISHER Work Phone: Start: 10-14-2022 Plain chest X-ray Start: 11-11-2020 Mammography Librado Black l JOURNEYMAN PRESS OPERATOR-FINISHER POLISHER Work Phone: Start: 08-21-2020 Lipid 1996 panel - S navjot or Plasma Anya Kirk MD Work Phone: Start: 02-17-2020 Mammography Vicky Booth PSYD Work Phone: Start: 10-08-2018 Colonoscopy Vicky Booth PSYD Work Phone: H/O: section S/P Comment on above: 05/13/2002, 08/12/19 05 H/O: hysterectomy S/P hysterectomy Comment on above: 2009 Plan of Treatment Date Care Activity Detail Author Start: 10-08-2028 Colonoscopy COLONOSCOPY [facility] Start: 10-08-2028 COLORECTAL CANCER SCREENING COLORECTAL CANCER SCREENING [facility] Start: 10-08-2028 Screening for malign ant neoplasm of colon [facility] Start: 08-21-2025 Lipid 1996 panel - Serum or Plasma Lipid Screening [facility] Start: 08-21-2025 Lipid panel Lipid Screening [facility] Start: 08-21-2025 LIPID SCREEN LIPID SCREEN [facility] Start: 10-07-2024 Patient referral [facility] Work Phone: Start: 12-31-2023 Covid-19 Vaccine ( season) Covid-19 Vaccine () [facility] Start: 12-31-2023 Influenza vaccination Influenza Vacc ine (#1) [facility] Start: 08-22-2023 DIABETES SCREEN DIABETES SCREEN [facility] Start: 08-22-2023 Diabetes Screening Diabetes Screenin g [facility] Start: 06-26-2023 Procedure [facility] Start: 06-22-2023 End: 06-22-2023 Patient encounter procedure 06/22/2023 11:00 AM EST Office Visit [facility] [address] [place] [address] Librado Dalton, JOURNEYMAN PRESS OPERATOR-FINISHER POLISHER [address] [place] [place] [address] [facility] Start: 12-30-2022 Influenza vaccination Influenza Vacc ine (#1) [facility] Start: 12-30-[address] [facility] Start: 11-11-2021 Screening for malign ant neoplasm of breast Mammogram [facility] Start: 10-06-2021 End: 12-06-2021 CBC W Auto Differential panel - Blood CBC + DIFF Lab Routine Annual physical exam Abnormal coagulation profile Expected: 10/06/2021, Expires: 12/06/2021 [facility] Work Phone: Comment on above: Expected: 10/06/2021 , Expires: 12/06/2021 Start: 10-06-2021 End: 12-06-2021 Comprehensive metabolic 2000 panel - Serum or Plasma COMP METABOLIC PANEL Lab Routine Abnormal coagulation profile Annual physical exam Expected: 10/06/2021, Expires: 12/06/2021 [facility] Work Phone: Comment on above: Expected: 10/06/2021 , Expires: 12/06/2021 Start: 10-06-2021 End: 12-06-2021 LIPID PANEL BASIC LIPID PANEL BASIC Lab Routine Lipid screening Expected: 10/06/2021, Expires: 12/06/2021 [facility] Work Phone: Comment on above: Expected: 10/06/2021 , Expires: 12/06/2021 Start: 10-06-2021 End: 12-06-2021 VITAMIN B12 BLOOD VITAMIN B12 BLOOD Lab Routine Vitamin B12 deficiency Abnormal coagulation profile Expected: 10/06/2021, Expires: 12/06/2021 [facility] Work Phone: Comment on above: Expected: 10/06/2021 , Expires: 12/06/2021 Start: 02-16-2021 Mammography [facility] Start: 02-16-2021 Screening for malign ant neoplasm of breast Mammogram Screening [facility] Start: 12-30-2020 Influenza vaccination INFLUENZA (#1) [facility] Start: 2019 Pneumococcal Vaccine : 50+ (1 of 1 - PCV) Pneumococcal Vaccine: 50+ (1 of 1 - PCV) [facility] Start: 2019 SHINGRIX VACCINE (1 of 2) SHINGRIX VACCINE (1 of 2) [facility] Start: 2019 Zoster Vaccines (1 o f 2) Zoster Vaccines (1 of 2) [facility] Start: 12-18-2016 DTaP/Tdap/Td Vaccine s (2 - Td or Tdap) DTaP/Tdap/Td Vaccines (2 - Td or Tdap) [facility] Start: 12-18-2016 Urine microalbumin profile [facility] Start: 2014 COLOGUARD (FIT-DNA) COLOGUARD (FIT-D NA) [facility] Start: [address] COLONOGRAPHY [facility] Start: 2014 FECAL OCCULT BLOOD FECAL OCCULT BLOO D [facility] Start: 2014 Screening for malign ant neoplasm of colon [facility] Start: 2014 SIGMOIDOSCOPY SIGMOIDOSCOPY [facility] Start: 03-20-2009 MMR Vaccines (1 of 1 - Standard series) MMR Vaccines (1 of 1 - Standard series) [facility] Start: 06-20-2007 Hepatitis B Vaccine (3 of 3 - 19+ 3-dose series) Hepatitis B Vaccine (3 of 3 - 19+ 3-dose series) [facility] Start: 06-20-2007 Hepatitis B Vaccine (3 of 3 - Risk 3-dose series) Hepatitis B Vaccine (3 of 3 - Risk 3-dose series) [facility] Start: 06-20-2007 Hepatitis B Vaccines (3 of 3 - 19+ 3-dose series) Hepatitis B Vaccines (3 of 3 - 19+ 3-dose series) [facility] Start: 06-17-2007 HEPATITIS B (3 of 3 - 19+ 3-dose series) HEPATITIS B (3 of 3 - 19+ 3-dose series) [facility] Start: 04-09-2007 HEPATITIS B (3 of 3 - 3-dose series) HEPATITIS B (3 of 3 - 3-dose series) [facility] Start: 1990 Screening for malign ant neoplasm of cervix [facility] Start: 02-27-1988 Hepatitis A Vaccine (1 of 2 - Risk 2-dose series) Hepatitis A Vaccine (1 of 2 - Risk 2-dose series) [facility] Start: 1987 Anxiety Screening Anxiety Screening [facility] Start: 1987 Diabetes mellitus screening Diabetes Screening [facility] Start: 1987 HEPATITIS C SCREENING HEPATITIS C [facility] Start: 1987 Hepatitis C screening Hepatitis C [facility] Start: 1987 MMR Vaccine (1 of 2 - Risk 2-dose series) MMR Vaccine (1 of 2 - Risk 2-dose series) [facility] Start: 1979 Meningococcal B Vaccine: Consider Based On Risk (1 of 4 - Increased Risk) Meningococcal B Vaccine: Consider Based On Risk (1 of 4 - Increased Risk) [facility] Start: 1974 COVID-19 VACCINE (#1) COVID-19 VACCI NE (#1) [facility] Start: 1974 COVID-19 VACCINE (1) COVID-19 VACCIN E (1) [facility] Start: 1969 COVID-19 VACCINE (#1) COVID-19 VACCI NE (#1) [facility] Start: 1969 HIV screening HIV Screening [facility] Start: 1969 Lipid panel Lipid Panel [facility] Start: 1969 Screening for malign ant neoplasm of colon [facility] Start: 1969 Yearly Adult Physical Yearly Adult P hysical [facility] End: 03-30-2024 MICHAEL SCREENING MICHAEL SCREENING Radiology Routine Encounter for screening mammogram for breast cancer 1 Occurrences starting 03/01/2023 until 03/30/2024 [facility] Work Phone: Comment on above: 1 Occurrences starti butch 03/01/2023 until 03/30/2024 Patient referral [facility] Work Phone: End: 04-08-2023 Screening mammography bi 2-view breast inc cad MICHAEL SCREENING Radiology Routine Encounter for screening mammogram for breast cancer 1 Occurrences starting 03/09/2022 until 04/08/2023 [facility] Work Phone: Comment on above: 1 Occurrences starti ng 03/09/2022 until 04/08/2023 XR Chest PA and Lateral os [facility] [place] [facility] Immunizations Immunization Date Immunization Notes Care Provider Amisha shaffer 05-04-2018 influenza, injectabl e, quadrivalent, contains preservative Vicky Booth PSYD Work Phone: [facility] 05-04-2018 influenza virus vaccine, unspecified formulation Anya Kirk MD Work Phone: [facility] 03-22-2016 influenza, injectabl e, quadrivalent, contains preservative Vicky Booth PSYD Work Phone: [facility] 01-29-2015 influenza, seasonal, injectable Vicky Booth PSYD Work Phone: [facility] 02-20-2009 influenza virus vaccine, live, attenuated, for intranasal use Vicky Booth PSYD Work Phone: [facility] Work Phone: 01-15-2007 hepatitis B vaccine, adult dosage Vicky Booth PSYD Work Phone: [facility] Work Phone: 01-15-2007 hepatitis B vaccine, unspecified formulation Anya Kirk MD Work Phone: [facility] 12-18-2006 hepatitis B vaccine, adult dosage Vicky Booth PSYD Work Phone: [facility] Work Phone: 12-18-2006 tetanus toxoid, redu swapna diphtheria toxoid, and acellular pertussis vaccine, adsorbed Vicky Booth PSYD Work Phone: [facility] Work Phone: Payers Date Payer Category Payer Private Health Insurance [employer] [id number] 2024 Private Health Insurance [id number] 2023 Self-pay [id number] 2018 Unknown MMO MMO [employer] [id number] 2018-Present [phone] [address] [place] [address] PPO [id number] 2018 Unknown [id number] 2014 Medicaid MEDICAID [id number] 2013 Private Health Insurance [employer] [id number] 2007 Unknown [id number] 1969 Unknown [id number] 1969 Unknown [id number] Unknown [id number] Unknown [id number] Unknown [id number]. 2.462 Unknown [id number]. 2.462 Unknown [id number]. 2.462 Unknown [id number] [id number]. 2.462 Unknown [id number]. 2.462 Unknown [id number]. 2.462 Unknown [id number]. 2.462 Unknown [id number] [id number]. 2.462 Unknown [id number] [id number]. 2.462 Unknown [id number] [id number]. 2.462 Unknown [id number] [id number]. 2.462 Unknown [id number] 2.462 Social History Date Type Detail Facility Start: 05-03-2012 End: 03-01-2024 Tobacco smoking status NHIS Never smoked tobacco [facility] Work Phone: Start: 01-20-2021 End: 02-04-2022 Alcohol intake Current drinker of alcohol (finding) [facility] Start: 10-19-2020 History SDOH Alcohol Frequency 2 [facility] Start: 10-19-2020 History SDOH Alcohol Std Drinks 1 [facility] Start: 10-19-2020 History SDOH Social Connections Phone 4 [facility] Start: 10-19-2020 End: 10-06-2021 History SDOH Social Connections Yazdanism 3 [facility] Start: 10-19-2020 History SDOH Social Connections Living 8 [facility] Start: 10-19-2020 History SDOH Financial 5 [facility] Start: 10-19-2020 Education 12 [facility] Start: 1970 Sex Assigned At Female [facility] Start: 08-30-2021 End: 06-23-2023 Exposure to SARS-CoV-2 (event) Not sure [facility] Start: 05-03-2012 End: 06-23-2023 Tobacco use and exposure Smokeless tobacco non-user [facility] Start: 01-27-2020 End: 01-27-2020 Tobacco smoking status NHIS Unknown if ever smoked [facility] Start: 07-20-2022 End: 06-14-2024 History of Social function [facility] Start: 07-20-2022 End: 06-14-2024 Social connection and isolation panel [facility] In a typical week, h ow many times do you talk on the telephone with family, friends, or neighbors? Patient refused [facility] Are you now , , , , never or living with a partner? Refused [facility] How often to you hav e a drink containing alcohol? Monthly or less [facility] How many standard drinks containing alcohol do you have on a typical day? 1 or 2 [facility] How often do you hav e 6 or more drinks on 1 occasion? Never [facility] Do you feel stress - tense, restless, nervous, or anxious, or unable to sleep at night because your mind is troubled all the time - these days [OSQ] Only a little [facility] (I/We) worried ludmila er (my/our) food would run out before (I/we) got money to buy more. DK or Refused [facility] In the past 12 month s, was there a time when you were not able to pay the mortgage or rent on time? No [facility] Start: 03-31-2021 Gender identity Identifies as female gender (finding) [facility] Start: 1970 Sex Assigned At Not on file [facility] Work Phone: Start: 07-18-2024 End: 08-12-2024 Sex Female (finding) [facility] NEGATED: Highlighted rowStart: NINF History of tobacco use Passive smoker [facility] Work Phone: Functional Status Date Assessment Result Facility 10-28-2014 Are you deaf, or do you have serious difficulty hearing No 10/28/2014 1:45 PM EDT Audra Weston MA No [facility] 10-28-2014 Are you blind, or do you have serious difficulty seeing, even when wearing glasses No 10/28/2014 1:45 PM EDT Audra Weston MA No [facility] 10-28-2014 Do you have serious difficulty walking or climbing stairs No 10/28/2014 1:45 PM EDT Audra Weston MA No [facility] 10-28-2014 Do you have difficul ty dressing or bathing No 10/28/2014 1:45 PM EDT Audra Weston MA No [facility] 10-28-2014 Because of a physica l, mental, or emotional condition, do you have difficulty doing errands alone such as visiting a physician's office or shopping No 10/28/2014 1:45 PM EDT Audra Weston MA No [facility] Mental Status Date Assessment Result Facility 10-28-2014 Because of a physica l, mental, or emotional condition, do you have serious difficulty concentrating, remembering, or making decisions No 10/28/2014 1:45 PM EDT Audra Weston MA No [facility] Clinical Notes 01-12-2012 to 08-22-2024 Note Date & Type Note Facility 08-22-2024 Evaluation note Diagnosis Onset Date Resolution ALBERTINA positive acute August 22, 2024 10:11am Chronic cough chronic August 22, 2024 10:11am [facility] Work Phone: 1(752) 556-896304-24-2025 Evaluation note* Diagnosis Onset Date Resolution Status Admit Date ALBERTINA positive acute August 22, 2024 10:11am Chronic cough chronic August 22, 2024 10:11am ALBERTINA positive acute October 07, 25 11:22am Chronic cough chronic October 07, 025 11:22am [facility] Work Phone: 1(665) 311-978002-14-2025 History of Present illness Narrative* Bessy Zuniga, RT(R) - 06/14/2024 3:40 PM EST Radiology Service Progress Note PATIENT NAME: SANDRA Bradley DATE OF SERVICE: June 14, 2024 TIME: 4:01 PM PATIENT IDENTITY VERIFICATION COMPLETED USING TWO (2) IDENTIFIERS: Name and Date of confirmedby patient verbally. FALL SCREENING: Has the patient had 2 falls in the last year or 1 fall with injury or currently using an Ambulatory Assistive Device (Walker, Cane, Wheelchair, Crutches, etc.)? No PATIENT GENDER DATA: Assigned female at . status: : No status:NO. PATIENT RELEVANT IMPLANT DATA REVIEWED: Yes PATIENT PRESENTS WITH AN IMPLANTABLE OR ATTACHED ROVING OR YARN COLOR CHECKER: No RADIOLOGY DEPARTMENT: CT; Exam(s) Completed: Sinus PERIPHERAL IV DATA: Not applicable SIGNED BY: RT Donald(R) June 14, 2024 4:01 PM documented in this encounterA[facility]02-14-2025 NoteHNO ID: [id number] Author: BESSY ZUNIGA RT(R) Service: ? Author Type: [employer] Consultant Type: Progress Notes Filed: 06/14/2024 16:02 Note Text: Radiology Service Progress Note PATIENT NAME: SANDRA Bradley DATE OF SERVICE: June 14, 2024 TIME: 4:01 PM PATIENT IDENTITY VERIFICATION COMPLETED USING TWO (2) IDENTIFIERS: Name and Date of confirmed by patient verbally. FALL SCREENING: Has the patient had 2 falls in the last year or 1 fall with injury or currently using an Ambulatory Assistive Device (Walker, Cane, Wheelchair, Crutches, etc.)? No PATIENT GENDER DATA: Assigned female at . status: : No status: NO. PATIENT RELEVANT IMPLANT DATA REVIEWED: Yes PATIENT PRESENTS WITH AN IMPLANTABLE OR ATTACHED ROVING OR YARN COLOR CHECKER: No RADIOLOGY DEPARTMENT: CT; Exam(s) Completed: Sinus PERIPHERAL IV DATA: Not applicable SIGNED BY: RT Donald(R) June 14, 2024 4:01 [facility]02-23-2024 History of Present illness Narrative* Librado Dalton APRN-TUTU - 06/23/2023 10:30 AM EST Patient ID: Sandra Bradley is a 53 y.o. female. 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 Patient was determined to have the MTHFR and Prothrombin 94753 mutations. 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 Patient reports after surgery she was instructed to be treated prophylactic ly for clotting. Her MTHFR mutation has been managed with foltex/folbic 2.5-25-2 mg. Patient denies any clotting history. Today patient presents for initial consultation. Patient reports her energy has been poor for the past couple of years, just never feels rested. Appetite is good, eating and drinking. Menopausal changes, daily hot flashes, night sweats and insomnia. Increased joint pain. Currently having a ulcerative flare, c/o abdominal cramping, and bloating-scheduled for a colonoscopy tomorrow, to determine next line of treatment. No urinary issues. No fevers, chills, recurrent infections. No lymphadenopathy, or bone pain. No SOB. No nausea, vomiting. Denies any abnormal bleeding or bruising. Patient reports previous history of a Positive TB, that was treated for 6 months. Due for Mammogram, and Bone Density Skin cancer was recently completed up to date on cancer screenings 06/23/23: Joint/Pain has improved since starting new medication for UC Recent had colonoscopy Eating and drinking well No clotting No abnormal bleeding or bruising Energy is decent, fatigues at time due to lack of sleep No abdominal cramping No urinary Occasional hor flashes, insomnia No fevers, or recurrent infection SH: Diet - reg, Tobacco- never , ETOH- rarely , Rec drug use-None Multiple miscarriages 2 children [employer] Family [employer] Past Surgical History: 2 C-sections, Hysterectomy, balloon sinuplasty Past Medical History: Ulcerative Colitis, Endometriosis, Thrombotic Microangiopathy (HCC)- MTHFR & prothrombin [id number] mutations Family History: Father: Skin Cancer, hx of stroke, MTFHR mutation Mother: HLD Paternal Grandmother: Heart Paternal Grandfather: Heart, HTN Meds: see list Objective BSA: There is no height or weight on file to calculate BSA. There were no vitals taken for this visit. Physical Exam Vitals and nursing note reviewed. Constitutional: Appearance: Normal appearance. HENT: Head: Normocephalic and atraumatic. Mouth/Throat: Pharynx: Oropharynx is clear. Eyes: General: No scleral icterus. Extraocular Movements: Extraocular movements intact. Conjunctiva/sclera: Conjunctivae normal. Cardiovascular: Rate and Rhythm: Normal rate and regular rhythm. Pulses: Normal pulses. Heart sounds: Normal heart sounds. Pulmonary: Effort: Pulmonary effort is normal. Breath sounds: Normal breath sounds. Abdominal: General: There is no distension. Palpations: Abdomen is soft. Tenderness: There is no abdominal tenderness. Musculoskeletal: General: Normal range of motion. Cervical back: Normal range of motion. Skin: General: Skin is warm and dry. Neurological: General: No focal deficit present. Mental Status: She is alert and oriented to person, place, and time. Psychiatric: Mood and Affect: Mood normal. Behavior: Behavior normal. Thought Content: Thought content normal. Judgment: Judgment normal. Performance Status: Asymptomatic Assessment/Plan Prothrombin Gene Mutation Patient is here today for establishment of care. Patient is known to have a MTHFR & ProthrombinGene Mutation , unknown if heterozygous vs homozygous. Patient has a history of multiple miscarriages, and 2 live births with out complications. No clotting history. MTHFR mutation is managed with foltex/folbic 2.5-25-2 mg. Due to the patient being diagnosed 22 years ago, and having limited access to records. Discussed confirming if patient is a heterozygous/homozygous carrier of the mutation. Patient was agreeable withsuch plan. Will order hypercoagulability labs today and schedule patient for a follow-up in 3-4 weeks to discuss results. 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 Otherwise hypercoagulability results were negative. Discussed with patient guidelines per update to date state that asymptomatic patients, with prothrombin [id number] who have not had a thromboembolic event do not require anticoagulation. MTHFR mutation does not require any treatment, discussed with patient she can stop taking the foltex/folbic, if she desires. 2. Ulcerative Colitis Follows GI Managed with [facility] Scheduled for colonoscopy tomorrow to determine next line of treatment Discussed with patient that she does not need to continue to follow with me at this time but am more than happy to see the patient in the future if needed. PAULINE Lynn * Fern De La Cruz RN - 06/23/2023 10:30 AM EST Rtc as needed- documented in this [facility] Work Phone: 1(182) 619-191401-29-2024 History of Present illness Narrative* Librado Dalton, JOURNEYMAN PRESS OPERATOR-FINISHER POLISHER - 05/29/2023 1:00 PM EST Patient ID: Sandra Bradley is a 53 y.o. female. Subjective HPI Patient is a 53 yo with a PMH of Ulcerative Colitis, Thrombotic Microangiopathy (HCC)- MTHFR & prothrombin 41276 mutations and self-referred for establishment of care with Hematology. 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 Patient was determined to have the MTHFR and Prothrombin 16969 mutations. 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 Patient reports after surgery she was instructed to be treated prophylactic ly for clotting. Her MTHFR mutation has been managed with foltex/folbic 2.5-25-2 mg. Patient denies any clotting history. Today patient presents for initial consultation. Patient reports her energy has been poor for the past couple of years, just never feels rested. Appetite is good, eating and drinking. Menopausal changes, daily hot flashes, night sweats and insomnia. Increased joint pain. Currently having a ulcerative flare, c/o abdominal cramping, and bloating-scheduled for a colonoscopy tomorrow, to determine next line of treatment. No urinary issues. No fevers, chills, recurrent infections. No lymphadenopathy, or bone pain. No SOB. No nausea, vomiting. Denies any abnormal bleeding or bruising. Patient reports previous history of a Positive TB, that was treated for 6 months. 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 Past Surgical History: 2 C-sections, Hysterectomy, balloon sinuplasty Past Medical History: Ulcerative Colitis, Endometriosis, Thrombotic Microangiopathy (HCC)- MTHFR & prothrombin 90109 mutations Family History: Father: Skin Cancer, hx of stroke, MTFHR mutation Mother: HLD Paternal Grandmother: Heart Paternal Grandfather: Heart, HTN Meds: see list Objective BSA: 1.77 meters squared BP 126/76 (BP Location: Right arm, Patient Position: Sitting, BP Cuff Size: Adult) Pulse 89 Temp 36.5 C (97.7 F) (Skin) Resp 16 Ht 1.594 m (5' 2.74) Wt 70.9 kg (156 lb 6.4 oz) SpO2 96% BMI 27.94 kg/m Physical Exam Vitals and nursing note reviewed. Constitutional: General: She is not in acute distress. Appearance: Normal appearance. HENT: Head: Normocephalic and atraumatic. Mouth/Throat: Pharynx: Oropharynx is clear. Eyes: General: No scleral icterus. Extraocular Movements: Extraocular movements intact. Conjunctiva/sclera: Conjunctivae normal. Cardiovascular: Rate and Rhythm: Normal rate and regular rhythm. Pulses: Normal pulses. Heart sounds: Normal heart sounds. No murmur heard. Pulmonary: Effort: Pulmonary effort is normal. No respiratory distress. Breath sounds: Normal breath sounds. No wheezing. Abdominal: General: Bowel sounds are normal. There is no distension. Palpations: Abdomen is soft. There is no mass. Tenderness: There is no abdominal tenderness. Musculoskeletal: General: No swelling, tenderness or deformity. Normal range of motion. Cervical back: Normal range of motion. Skin: General: Skin is warm and dry. Neurological: General: No focal deficit present. Mental Status: She is alert and oriented to person, place, and time. Motor: No weakness. Psychiatric: Mood and Affect: Mood normal. Behavior: Behavior normal. Behavior is cooperative. Thought Content: Thought content normal. Judgment: Judgment normal. Performance Status: Asymptomatic Assessment/Plan Prothrombin Gene Mutation Patient is here today for establishment of care. Patient is known to have a MTHFR & ProthrombinGene Mutation , unknown if heterozygous vs homozygous. Patient has a history of multiple miscarriages, and 2 live births with out complications. No clotting history. MTHFR mutation is managed with foltex/folbic 2.5-25-2 mg. Due to the patient being diagnosed 22 years ago, and having limited access to records. Discussed confirming if patient is a heterozygous/homozygous carrier of the mutation. Patient was agreeable withsuch plan. Will order hypercoagulability labs today and schedule patient for a follow-up in 3-4 weeks to discuss results. 2. Ulcerative Colitis Follows GI Managed with [facility] Scheduled for colonoscopy tomorrow to determine next line of treatment Plan: Labs today RTC in 3-4 weeks Librado Dalton APRN-TUTU * Fern De La Cruz RN - 05/29/2023 1:00 PM EST LABS DRAWN TODAY- RTC 06/22 AT 1100 FOR FINISHER POLISHER VISIT Reviewed AVS with patient- patient verbalizes understanding [facility] Work Phone: 1(292) 797-659202-07-2023 Miscellaneous Notes* Telephone Encounter - Taryn Boothe LPN - 06/07/2022 8:56 AM EST Patient has been identified by name and date of : Yes Patient phones for refill(s): Requested Prescriptions Pending Prescriptions Disp Refills folic acid-Vit B6-Vit B12 (FOLBIC) 2.5-25-2 mg tab 180 tablet 3 Sig: Take 2 tablets by mouth once daily. Date of last office visit in primary care: 10/06/21 Please advise. Thank you. Taryn Boothe LPN documented in this encounterA[facility]12-28-2022 Miscellaneous Notes* Telephone Encounter - Bárbara Spring LPN - 04/27/2022 11:00 AM EST Patient has been identified by name and [...] you. Bárbara Spring LPN documented in this encounterAdena [facility] Center10-07-2022 Instructions* Patient Instructions* Elliott Llamas APRN.FINISHER POLISHER - 02/04/2022 12:28 PM EDT [facility] PATIENT INFO ACUTE SINUSITIS OVERVIEW Rhinosinusitis, or more commonly sinusitis, is the medical term for inflammation (swelling) of the lining of the sinuses and nose. The sinuses are the hollow areas within the facial bones that are connected to the nasal openings. The sinuses are lined with mucous membranes, similar to the inside ofthe nose. There are two main types of [...] bacterial, and not viral, infections, most people donot need antibiotics for acute sinusitis. ACUTE SINUSITIS [...] within seven to 10 days after symptoms begin.Bacterial sinusitis also sometimes improves without treatment, although [...] such as acetaminophen (eg, Tylenol ) or ibuprofen(eg, Motrin , Advil ) are recommended for [...] by rinsing out allergens and irritants from thenose. Saline rinses also clean the nasal lining and can be used before applying sprays containing medications, to get a better effect from the medication. Nasal lavage with warmed saline can be performed as needed, once per day, or twice daily for increased symptoms. Nasal lavage carries few risks when performed correctly. Saline nasal sprays and irrigation kits can be purchased [id number]. Saline mixes can also be purchased or patients can make their own solution. A variety of devices, including bulb syringes, Neti pots, and bottle sprayers, may be used to perform nasal lavage; instructions for nasal lavage are provided in the table. At least 200 mL (about 3/4cup) of fluid is recommended for each nostril. Nasal decongestants -- Nasal decongestant sprays, including oxymetazoline (Afrin ) and phenylephrine (Pierce-synephrine ) can be used to temporarily treat congestion. However, these sprays should not beused for more than two to three days [...] allergic to penicillin. Regardless of which antibiotic isprescribed, it is important to follow the dosing instructions carefully and to finish the entire course of treatment. Taking the medication less often than prescribed or stopping the medication earlycan lead to complications, such as a recurrent [...] upon your individual situation. documented in this [facility] History of Present illness Narrative* Elliott Llamas APRN.CNP - 02/04/2022 12:07 PM EDT Subjective HPI Nontoxic-appearing female presents urgent care chief plaint sinus pressure ear pain. Duration of symptom 8 days. Associated symptoms increasing sinus pressure left ear pain. States she was around individuals with similar signs symptoms over the weekend last week. Denies any OTC medication use today. Has been taking Aleve. This is helped some. History of sinus infections this feels similar. 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 The patient's clinical presentation is otherwise unremarkable at this time. Based on exam and clinical finding, the patient is stable for discharge. Plan of care was discussed with patient. Patient verbalizes understanding and agrees to plan of care. This note was generated using [employer] software. It may contain errors in wording, punctuation, or spelling. Elliott Llamas APRN.TUTU documented in this encounterAdena [facility]09-15-2022 Miscellaneous Notes* Telephone Encounter - Jana Jensen LPN - 01/13/2022 10:19 AM EDT Patient has been identified by name and [...] you. Jana Jensen LPN documented in this encounterAdena [facility]09-01-2022 Miscellaneous Notes* Telephone Encounter - Taryn Boothe LPN - 12/30/2021 10:46 AM EDT Patient has been identified by name and date of : Yes Patient phones for refill(s): Requested Prescriptions Pending Prescriptions Disp Refills rizatriptan (MAXALT) 10 mg tablet 20 tablet 1 Sig: Take at onset of headache; may repeat after 2hrs. Do not exceed 30mg/day (3 doses). Date of last office visit in primary care: 10/06/21 Please advise. Thank you. Taryn Botohe LPN documented in this encounterAdena [facility]ike [facility] Center08-12-2022 Miscellaneous Notes* Telephone Encounter - Rosa Saldana LPN - 12/10/2021 8:33 AM EDT Patient phones requesting refills as follows: Requested Prescriptions Pending Prescriptions Disp Refills rizatriptan (MAXALT) 10 mg tablet 20 tablet 1 Sig: Take at onset of headache; may repeat after 2hrs. Do not exceed 30mg/day (3 doses). Please review and advise. Rosa Saldana LPN documented in this encounterAdena [facility]ike [facility] Center06-08-2022 History of Present illness Narrative* Lilly Rice APRN.FINISHER POLISHER - 10/06/2021 2:27 PM EDT This Team Access Model visit is a virtual encounter. It required patient- provider interaction for the medical decision making as documented below. Patient agrees to the visit: Yes Patient Location: [place] CC: Patient presents with: Sleep Problem HPI Tammy Bradley is a 51 year old female who is contacted today for a virtual visit. This is an established patient of Dr. Anya Kirk MD. HPI Tammy Bradley is a 51 year old female who [...] latent Thrombotic microangiopathy (HCC) mthfr & prothrombin 86651 mutations Ulcerative colitis, unspecified PAST SURGICAL HISTORY Procedure Laterality Date C-SEC ONLY,PREV C-SEC 2x COLONOSCOP W/ OR W/O [facility] SPEC 08/17/2005 Colonoscopy COLONOSCOP W/ OR W/O [facility] SPEC 11/06/2008 Colonoscopy COLONOSCOP W/ OR W/O [facility] SPEC 10/08/2018 Colonoscopy L'SCOPE DX W/WO [...] activity was identified. 10/06/2021 by Lilly Rice APRN.FINISHER POLISHER 2. Abnormal coagulation profile - ICD9: 790.92, [...] care. Lilly Rice APRN.CNP documented in this encounterAdena [facility]ike [facility] Center05-13-2022 Miscellaneous Notes* Telephone Encounter - Lilly Rice APRN.CNP - 09/10/2021 8:00 AM EDT PDMP website checked and validated. All prescriptions have been APPROPRIATELY filled. No suspiciousactivity was identified. 09/10/2021 by Lilly Rice APRN.CNP * Telephone Encounter - Sheila Levi RN - 09/09/2021 5:08 PM EDT Patient reports she has 1 lunesta pill left for tonight. Reports she was not aware she needed an appt with pcp until today. Reports she is seeing the sleep psychologist, who wants her to stay on lunesta for now. Scheduled appt for 1st available on 10-01-21. Pended short supply. Please advise patient. documented in this encounterAdena [facility]ike [facility] Center03-30-2022 History of Present illness Narrative* Vicky Booth PSYD - 07/28/2021 3:22 PM EDT July 28, 2021 [facility] Behavorial Sleep Medicine First Follow-Up CBT-I Session 3:30 4:45 Provider: Vicky Booth PsyD Due to the [facility] and [facility] of emergency and the need for ongoing mental health services, thefollowing visit was completed virtually to reduce the risk of COVID-19 exposure. Consent related tovirtual visits was provided verbally after information was sent via [employer] or read to patient if ApaceWave Technologieshart not available. First Follow-up CBT-I Session Content: Sleep Education, Sleep Hygiene, Stimulus Control Introduced the purpose of the class. Began the class discussing the purpose of sleep, sleep architecture, and expectations of sleep as we age. Provided education about two process model and how this related to behavioral changes that will be recommended. Discussed behavioral techniques for insomniaincluding stimulus control and sleep hygiene. Briefly discussed [...] was off during session so unable to discernunderstanding of information. Insomnia Severity Index 07/28/2021 Score [...] Booth PsyD Staff Psychologist Behavioral Sleep Medicine [facility] documented in this encounterAdena Pike [facility] Center03-11-2022 NoteHNO ID: [id number] Author: Vinita Luis, PhD Service: ? Author Type: Psychologist Type: Progress Notes Filed: 07/09/2021 12:04 PM Note Text: Behavioral Sleep Medicine Consult Vinita Luis, Ph.D., [facility] -- Psychologist ([place] License [id number]) Due to the federal emergency declaration and the need for ongoing mental health services, the following visit was completed virtually and informed consent obtained orally to reduce the risk of COVID-19 exposure. Oral consent to services related to virtual visits was obtained after information was sent via [employer] or read to patient if MyChart not available Contact Method: Alda Patient Confirmed Address: [address] [place] [address] Patient Confirmed Telephone #: [phone] Time: 50 min Patient was seen for an initial evaluation. All information is from patient report and review of medical record except when noted. This evaluation is NOT intended for forensic, disability or child custody purposes. Informed consent was discussed and signed by the patient. PRESENT: Self Tammyjanie Bradley is a 51 year old year old female who presents for a [facility] evaluation for insomnia, referred by [facility] Sleep Disorders Provider - Goldie Westfall APRN, CNP HPI: Ms. Bradley reported symptoms consistent with sleep maintenance insomnia for at least 10 years. ? Described feeling very high alert, hyperaroused when children were young. [place] like a single mother when still , [...] have a productive day; discontinue Lunesta Ms. Bradley has not been previously evaluated and treated by Behavioral Sleep Medicine at the [facility]. 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 Not exercising as much [...] (thoughts/behaviors) starts thinking about (more content not included)...[id number] History of Past illness Narrative* Problem Noted Date Resolved Date Depressive disorder, not elsewhere classified 08/20/2014 Insomnia, unspecified 09/29/2008 03/20/2015 Overview: Chronic Ulcerative colitis 08/17/2005 03/20/2015 THROMBOSED HEMORRHOID 05/17/2005 07/01/2009 documented as of this encounter (statuses as of 07/29/2021) [facility] of Past illness Narrative* Problem Noted Date Resolved Date Depressive disorder, not elsewhere classified 08/20/2014 Insomnia, unspecified 09/29/2008 03/20/2015 Overview: Chronic Ulcerative colitis 08/17/2005 03/20/2015 THROMBOSED HEMORRHOID 05/17/2005 07/01/2009 documented as of this encounter (statuses as of 09/09/2021) [facility] of [facility] illness Narrative* Problem Noted Date Resolved Date Depressive disorder, not elsewhere classified 08/20/2014 Insomnia, unspecified 09/29/2008 03/20/2015 Overview: Chronic Ulcerative colitis 08/17/2005 03/20/2015 THROMBOSED HEMORRHOID 05/17/2005 07/01/2009 documented as of this encounter (statuses as of 09/10/2021) [facility] of [facility] illness Narrative* Problem Noted Date Resolved Date Depressive disorder, not elsewhere classified 08/20/2014 Insomnia, unspecified 09/29/2008 03/20/2015 Overview: Chronic Ulcerative colitis 08/17/2005 03/20/2015 THROMBOSED HEMORRHOID 05/17/2005 07/01/2009 documented as of this encounter (statuses as of 10/06/2021) [facility] of [facility] illness Narrative* Problem Noted Date Resolved Date Depressive disorder, not elsewhere classified 08/20/2014 Insomnia, unspecified 09/29/2008 03/20/2015 Overview: Chronic Ulcerative colitis 08/17/2005 03/20/2015 THROMBOSED HEMORRHOID 05/17/2005 07/01/2009 documented as of this encounter (statuses as of 12/10/2021) [facility] of [facility] illness Narrative* Problem Noted Date Resolved Date Depressive disorder, not elsewhere classified 08/20/2014 Insomnia, unspecified 09/29/2008 03/20/2015 Overview: Chronic Ulcerative colitis 08/17/2005 03/20/2015 THROMBOSED HEMORRHOID 05/17/2005 07/01/2009 documented as of this encounter (statuses as of 12/30/2021) [facility] Narrative* Problem Noted Date Resolved Date Depressive disorder, not elsewhere classified 08/20/2014 Insomnia, unspecified 09/29/2008 03/20/2015 Overview: Chronic Ulcerative colitis 08/17/2005 03/20/2015 THROMBOSED HEMORRHOID 05/17/2005 07/01/2009 documented as of this encounter (statuses as of 12/30/2021) [facility] of [facility] Narrative* Problem Noted Date Resolved Date Depressive disorder, not elsewhere classified 08/20/2014 Insomnia, unspecified 09/29/2008 03/20/2015 Overview: Chronic Ulcerative colitis 08/17/2005 03/20/2015 THROMBOSED HEMORRHOID 05/17/2005 07/01/2009 documented as of this encounter (statuses as of 01/05/2022) [facility] Narrative* Problem Noted Date Resolved Date Depressive disorder, not elsewhere classified 08/20/2014 Insomnia, unspecified 09/29/2008 03/20/2015 Overview: Chronic Ulcerative colitis 08/17/2005 03/20/2015 THROMBOSED HEMORRHOID 05/17/2005 07/01/2009 documented as of this encounter (statuses as of 01/14/2022) [facility] Narrative* Problem Noted Date Resolved Date Depressive disorder, not elsewhere classified 08/20/2014 Insomnia, unspecified 09/29/2008 03/20/2015 Overview: Chronic Ulcerative colitis 08/17/2005 03/20/2015 THROMBOSED HEMORRHOID 05/17/2005 07/01/2009 documented as of this encounter (statuses as of 02/04/2022) [facility] Narrative* Problem Noted Date Resolved Date Depressive disorder, not elsewhere classified 08/20/2014 Insomnia, unspecified 09/29/2008 03/20/2015 Overview: Chronic Ulcerative colitis 08/17/2005 03/20/2015 THROMBOSED HEMORRHOID 05/17/2005 07/01/2009 documented as of this encounter (statuses as of 03/14/2022) [facility] Narrative* Problem Noted Date Resolved Date Depressive disorder, not elsewhere classified 08/20/2014 Insomnia, unspecified 09/29/2008 03/20/2015 Overview: Chronic Ulcerative colitis 08/17/2005 03/20/2015 THROMBOSED HEMORRHOID 05/17/2005 07/01/2009 documented as of this encounter (statuses as of 05/03/2022) [facility] Narrative* Problem Noted Date Resolved Date Depressive disorder, not elsewhere classified 08/20/2014 Insomnia, unspecified 09/29/2008 03/20/2015 Overview: Chronic Ulcerative colitis 08/17/2005 03/20/2015 THROMBOSED HEMORRHOID 05/17/2005 07/01/2009 documented as of this encounter (statuses as of 06/08/2022) [facility] Narrative* Problem Noted Date Diagnosed Date Resolved Date Depressive disorder, not elsewhere classified 01/12/2008/20/2014 Insomnia, unspecified 09/29/20082014 Overview: Chronic Ulcerative colitis 08/17/2005 5 THROMBOSED HEMORRHOID 05/17/20052009 documented as of this encounter (statuses as of 03/07/2023) [facility] Diagnosis Moderate episode of recurrent major depressive disorder (HCC)- Primary Chronic insomnia Insomnia, unspecified [facility]* Diagnosis Primary insomnia Persistent disorder of initiating or maintaining sleep [facility] Primary insomnia Persistent disorder of initiating or maintaining sleep documented in this encounter [facility] note* Diagnosis Insomnia, unspecified type- Primary Abnormal coagulation profile Vitamin B12 deficiency Other B-complex deficiencies Lipid screening Screening for lipoid disorders Annual physical exam Routine general medical examination at a health care facility Primary insomnia Persistent disorder of initiating or maintaining sleep documented in this encounter [facility] note* Diagnosis Migraine without status migrainosus, not intractable, unspecified migraine type documented in this encounter [facility] note* Diagnosis Primary insomnia- Primary Persistent disorder of initiating or maintaining sleep [facility]* Diagnosis Primary insomnia Persistent disorder of initiating or maintaining sleep documented in this encounter [facility] note* Diagnosis Ulcerative pancolitis without complication (HCC) documented in this encounter [facility] note* Diagnosis Acute maxillary sinusitis, 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- Primary documented in this encounter [facility] note* Diagnosis Encounter for screening mammogram for breast cancer documented in this encounter [facility] note* Diagnosis Thrombotic microangiopathy (HCC) Thrombotic microangiopathy Abnormal coagulation profile documented in this encounter [facility] noteNo assessment information availableWSelect [facility] Work Phone: Evaluation note* Diagnosis Encounter for screening mammogram for breast cancer documented in this encounter [facility] note* Diagnosis History of prothrombin mutation- Primary Personal history of diseases of blood and blood-forming organs Family history of prothrombin gene mutation Family history of other blood disorders documented in this encounter [facility] Work Phone: Evaluation note* Diagnosis History of prothrombin mutation Personal history of diseases of blood and blood-forming organs Family history of prothrombin gene mutation Family history of other blood disorders documented in this encounter [facility] Work Phone: Hospital Discharge instructionsAmbulatory Orders* Rheumatology Location: None [facility] Work Phone: Reason for referral (narrative)* Diagnostic Procedure Only (Routine) - Pending Review Specialty Diagnoses / Procedures Referred By Dana keyes Referred To Contact [facility] Diagnoses Encounter for screening mammogram for breast cancer Procedures MICHAEL SCREENING SCREENING MAMMOGRAPHY BI 2-VIEW BREAST INC Anya Erwin MD [address] [place] [address] [facility] [address] [place] [address] Referral ID Status Reason Start Date Expiration Date Visits Requested Visits Authorized [id number] Pending Review Auto-Generat ed Referral 03/09/2022 04/08/2023 1 1 [facility] for referral (narrative)* Diagnostic Procedure Only (Routine) - Pending Review Specialty Diagnoses / Procedures Referred By Contac t Referred To Contact [facility] Diagnoses Encounter for screening mammogram for breast cancer Procedures MICHAEL SCREENING SCREENING MAMMOGRAPHY BI 2-VIEW BREAST INC Anya Erwin MD [address] [place] [address] [facility] [address] [place] [address] Referral ID Status Reason Start Date Expiration Date Visits Requested Visits Authorized [id number] Pending Review Auto-Generat ed Referral 03/01/2023 03/30/2024 1 1 [facility] for referral (narrative)No reason for referral information availableWSelect [facility] Work Phone: Summary Purpose Family History Relationship Condition Age at Onset Recorded Date/T gilda mother High blood cholesterol Unknown father Malignant neoplasm Unknown Relationship Condition Age at Onset Recorded Date/T gilda mother High blood cholesterol Unknown Anxiety Unknown Arthritis Unknown Depression Unknown Hypertension Unknown father Malignant neoplasm Unknown Cerebrovascular accident (CVA) Unknown sister Depression Unknown Fibromyalgia Unknown Advance Directives Documents on File Type Date Recorded 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 [address] NAME SANDRA TEIXEIRA [facility] [id number] 1970 DATE 06/15/2018 OPERATIVE REPORT / PROCEDURE NOTE SURGEON CURTIS CALLOWAY DO PREOPERATIVE DIAGNOSIS Bilateral breast ptosis grade [...] Xylocaine as well (more content not included)... Chief Complaint and Reason for Visit Chief Complaint hx of latent tb Chief Complaint SEE ORDER Chief Complaint SEE ORDER U.C. Chief Complaint SEE ORDER U.C. DYSPHAGIA Chief Complaint SEE ORDER U.C. DYSPHAGIA S/O LABS Chief Complaint Admit Date injury, pain, swelling March 20 4:43pm LLE PAIN March 21, 2024 12:27pm PAIN March 21, 2024 1:00pm PRE OP March 26, 2024 12:10pm PREOP March 26, 2024 12:24pm CBC LFT'S CRP July 08, 2024 3:3 0pm Chief Complaint Admit Date CBC LFT'S CRP July 08, 2024 3:3 0pm EORDERS August 06, 2024 2:32 pm Chief Complaint Admit Date CBC LFT'S CRP July 08, 2024 3:3 0pm EORDERS August 06, 2024 2:32 pm Chronic Cough August 22, 2024 10: 11am 2 ORDERING DRS/NEED E ORDER FOR DR ARNETT August 22, 2024 10:53am R05.3 - Chronic cough September 19, 2024 10: 02am Reason for Visit Admit Date ALBERTINA positive August 22, 2024 10: 11am Chronic cough August 22, 2024 10: 11am Chief Complaint Admit Date CBC LFT'S CRP July 08, 2024 3:3 0pm EORDERS August 06, 2024 2:32 pm Chronic Cough August 22, 2024 10: 11am 2 ORDERING DRS/NEED E ORDER FOR DR ARNETT August 22, 2024 10:53am R05.3 - Chronic cough September 19, 2024 10: 02am 4-6 wk fu October 07, 2024 11:22 am Reason for Visit Admit Date ALBERTINA positive August 22, 2024 10: 11am Chronic cough August 22, 2024 10: 11am ALBERTINA positive October 07, 2024 11:22 am Chronic cough October 07, 2024 11:22 am Additional Source Comments INFORMATION SOURCE (unrecogn ized section and content) DATE CREATED AUTHOR 07/03/2018 [facility] DATE CREATED AUTHOR AUTHOR'S ORGANIZ ATION 07/11/2021 [facility] DATE CREATED AUTHOR AUTHOR'S ORGANIZ ATION 07/01/2023 [facility] DATE CREATED AUTHOR AUTHOR'S ORGANIZ ATION 06/16/2024 [facility] DATE CREATED AUTHOR AUTHOR'S ORGANIZ ATION 10/05/2024 [facility] Comments (unrecognize d section and content) In the event this informatio n is protected by the Federal Confidentiality of Alcohol and Drug Abuse Patient Records regulations: The Federal rules restrict any use of the information to criminally investigate or prosecute any alcohol or drug abuse patient.[facility] CenterIn the event this information is protected by the Federal Confidentiality of Alcohol and Drug Abuse Patient Records regulations: The Federal rules restrict any use of the information to criminally investigate or prosecute any alcohol or drug abuse patient.[facility] CenterIn the event this information is protected by the Federal Confidentiality of Alcohol and Drug Abuse Patient Records regulations: The Federal rules restrict any use of the information to criminally investigate or prosecute any alcohol or drug abuse patient.[facility] CenterIn the event this information is protected by the Federal Confidentiality of Alcohol and Drug Abuse Patient Records regulations: The Federal rules restrict any use of the information to criminally investigate or prosecute any alcohol or drug abuse patient.[facility] CenterIn the event this information is protected by the Federal Confidentiality of Alcohol and Drug Abuse Patient Records regulations: The Federal rules restrict any use of the information to criminally investigate or prosecute any alcohol or drug abuse patient.[facility] CenterIn the event this information is protected by the Federal Confidentiality of Alcohol and Drug Abuse Patient Records regulations: The Federal rules restrict any use of the information to criminally investigate or prosecute any alcohol or drug abuse patient.[facility] CenterIn the event this information is protected by the Federal Confidentiality of Alcohol and Drug Abuse Patient Records regulations: The Federal rules restrict any use of the information to criminally investigate or prosecute any alcohol or drug abuse patient.[facility] CenterIn the event this information is protected by the Federal Confidentiality of Alcohol and Drug Abuse Patient Records regulations: The Federal rules restrict any use of the information to criminally investigate or prosecute any alcohol or drug abuse patient.[facility] CenterIn the event this information is protected by the Federal Confidentiality of Alcohol and Drug Abuse Patient Records regulations: The Federal rules restrict any use of the information to criminally investigate or prosecute any alcohol or drug abuse patient.[facility] CenterIn the event this information is protected by the Federal Confidentiality of Alcohol and Drug Abuse Patient Records regulations: The Federal rules restrict any use of the information to criminally investigate or prosecute any alcohol or drug abuse patient.[facility] CenterIn the event this information is protected by the Federal Confidentiality of Alcohol and Drug Abuse Patient Records regulations: The Federal rules restrict any use of the information to criminally investigate or prosecute any alcohol or drug abuse patient.[facility] Center[facility] the event this information is protected by the Federal Confidentiality of Alcohol and Drug Abuse Patient Records regulations: The Federal rules restrict any use of the information to criminally investigate or prosecute any alcohol or drug abuse patient.[facility] CenterIn the event this information is protected by the Federal Confidentiality of Alcohol and Drug Abuse Patient Records regulations: The Federal rules restrict any use of the information to criminally investigate or prosecute any alcohol or drug abuse patient.[facility] CenterIn the event this information is protected by the Federal Confidentiality of Alcohol and Drug Abuse Patient Records regulations: The Federal rules restrict any use of the information to criminally investigate or prosecute any alcohol or drug abuse patient.[facility] CenterIn the event this information is protected by the Federal Confidentiality of Alcohol and Drug Abuse Patient Records regulations: The Federal rules restrict any use of the information to criminally investigate or prosecute any alcohol or drug abuse patient.[facility] Reason for Visit (unrecogniz ed section and content) Reason Comments Established Patient Reason Comments Refill Request Reason Onset Date [...] Reason Onset Date Comments Refill Request 06/06/2022 Reason Comments Clotting mutation disorder Reason Comments History of prothrombin mutation Reason Comments Radiology CT Care Teams (unrecognized sec tion and content) Nail Mill Worker Relationship Specialty Start Date End Date Anya Kirk MD [address] [place] [address] PCP - General Internal Medicine 04/01/17 Nail Mill Worker Relationship Specialty Start Date End Date Anya Kirk MD [address] [place] [address] PCP - General Internal Medicine 04/01/17 Nail Mill Worker Relationship Specialty Start Date End Date Anya Kirk MD [address] [place] [address] PCP - General Internal Medicine 04/01/17 Nail Mill Worker Relationship Specialty Start Date End Date Anya Kirk MD [address] [place] [address] PCP - General Internal Medicine 04/01/17 Nail Mill Worker Relationship Specialty Start Date End Date Anya Kirk MD [address] [place] [address] PCP - General Internal Medicine 04/01/17 Nail Mill Worker Relationship Specialty Start Date End Date Anya Kirk MD [address] [facility] [place] [address] PCP - General Internal Medicine 04/01/17 Nail Mill Worker Relationship Specialty Start Date End Date Anya Kirk MD [address] [facility] [place] [address] PCP - General Internal Medicine 04/01/17 Nail Mill Worker Relationship Specialty Start Date End Date Anya Kirk MD [address] [facility] [place] [address] PCP - General Internal Medicine 04/01/17 Nail Mill Worker Relationship Specialty Start Date End Date Anya Kirk MD [address] [facility] [place] [address] PCP - General Internal Medicine 04/01/17 Nail Mill Worker Relationship Specialty Start Date End Date Anya Kirk MD [address] [facility] [place] [address] PCP - General Internal Medicine 04/01/17 Team Status: Active Member Role Status Dates Dr. Anya Kirk MD Family Provider Active Sher Simpson DO Primary Care Provider Active Team Status: Inactive Member Role Status Dates Sher Simpson DO Primary Care Provi mary, Attending Provider, Referring Provider Active Nail Mill Worker Relationship Specialty Start Date End Date Anya Kirk MD [address] [facility] [place] [address] PCP - General Internal Medicine 04/01/17 Team Status: Inactive Member Role Status Dates Sher Simpson DO Primary Care Provider Active Dr. Ezekiel Love MD Attending Provider, Referring Provider Active Nail Mill Worker Relationship Specialty Start Date End Date Sher Simpson, DO [address] [place] [address] PCP - [facility] 05/29/23 Nail Mill Worker Relationship Specialty Start Date End Date Sher Simpson DO [address] [place] [address] PCP - [facility] 05/29/23 Team Status: Active Member Role Status Dates Sabi Arnett MD Primary Care Provider Active Team Status: Inactive Member Role Status Jeremiah Arnett MD Primary Care Provider Active St art: March 20, 2024 End: March 20, 2024 Helen Duff RAILWAY TRACK WORKER, RAILWAY TRACK WORKER-C Attending Provider Active S tart: March 20, 2024 End: March 20, 2024 Helen Duff RAILWAY TRACK WORKER, RAILWAY TRACK WORKER-C Referring Provider Active S tart: March 20, 2024 End: March 20, 2024 Team Status: Inactive Member Role Status Jeremiah Arnett MD Primary Care Provider Active St art: March 21, 2024 End: March 21, 2024 Helen Duff RAILWAY TRACK WORKER, RAILWAY TRACK WORKER-C Attending Provider Active S tart: March 21, 2024 End: March 21, 2024 Helen Duff RAILWAY TRACK WORKER, RAILWAY TRACK WORKER-C Referring Provider Active S tart: March 21, 2024 End: March 21, 2024 KAMALA De Los Santos Other Provider Active Star t: March 21, 2024 End: March 21, 2024 Team Status: Active Member Role Status Dates Dr. Lee Goodman MD Attending Provider Active Start: March 21, 2024 Helen Duff RAILWAY TRACK WORKER, RAILWAY TRACK WORKER-C Referring Provider Active S tart: March 21, 2024 Team Status: Inactive Member Role Status Dates Dr. Saadia Lozada MD Attending Provider Activ e Start: March 26, 2024 End: March 26, 2024 Dr. Saadia Lozada MD Referring Provider Activ e Start: March 26, 2024 End: March 26, 2024 Sabi Arnett MD Primary Care Provider Active St art: March 26, 2024 End: March 26, 2024 Team Status: Active Member Role Status Dates Sabi Arnett MD Primary Care Provider Active St art: March 26, 2024 End: March 26, 2024 Dr. Óscar Hurley MD Attending Provider Active Start: March 26, 2024 End: March 26, 2024 Dr. Saadia Lozada MD Referring Provider Activ e Start: March 26, 2024 End: March 26, 2024 Team Status: Inactive Member Role Status Jeremiah Arnett MD Primary Care Provider Active St art: July 08, 2024 End: July 08, 2024 Dr. Ezekiel Love MD Attending Provider Active Start: July 08, 2024 End: July 08, 2024 Dr. Saadia Lozada MD Referring Provider Activ e Start: July 08, 2024 End: July 08, 2024 Team Status: Inactive Member Role Status Jeremiah Arnett MD Primary Care Provider Active St art: August 06, 2024 End: August 06, 2024 Sabi Arnett MD Attending Provider Active Start : August 06, 2024 End: August 06, 2024 Sabi Arnett MD Referring Provider Active Start : August 06, 2024 End: August 06, 2024 Team Status: Inactive Member Role Status Jeremiah Arnett MD Primary Care Provider Active St art: August 22, 2024 End: August 22, 2024 Sabi Arnett MD Referring Provider Active Start : August 22, 2024 End: August 22, 2024 Dr. Best Santana , Attending Provider Active S tart: August 22, 2024 End: August 22, 2024 Team Status: Inactive Member Role Status Jeremiah Arnett MD Primary Care Provider Active St art: August 22, 2024 End: August 22, 2024 Dr. Best Santana , Attending Provider Active S tart: August 22, 2024 End: August 22, 2024 Dr. Best Santana , Referring Provider Active S tart: August 22, 2024 End: August 22, 2024 Team Status: Inactive Member Role Status Jeremiah Arnett MD Primary Care Provider Active St art: September 19, 2024 End: September 19, 2024 Dr. Best Santana , Attending Provider Active S tart: September 19, 2024 End: September 19, 2024 Dr. Best Santana , Referring Provider Active S tart: September 19, 2024 End: September 19, 2024 Team Status: Inactive Member Role Status Dates Sabi Arnett MD Primary Care Provider Active St art: October 07, 2024 End: October 07, 2024 Sabi Arnett MD Referring Provider Active Start : October 07, 2024 End: October 07, 2024 Dr. Best Santana , DO Attending Provider Active S tart: October 07, 2024 End: October 07, 2024 Goals (unrecognized section and content) Goals may be documented in a n alternate sectionGoals may be documented in an alternate sectionGoals may be documented in an alternate sectionGoals may be documented in an alternate sectionGoals may be documented in an alternate sectionGoals may be documented in an alternate sectionGoals may be documented in an alternate sectionGoals may be documented in an alternate sectionGoals may be documented in an alternate section FOR RECORDS PERTAINING TO PATIENTS WHO ARE [...] BE BASED ON THE PRIMARY CLINICAL RECORDS. [facility] [employer] [facility]. provides no warranty or guarantee of the accuracy or completeness of information in this document.
== END | disposition home or self-care (01) ==
LOC: RAD 12:07
PROVIDERS: PCP Family Medicine; Referring Provider Internal Medicine Critical Care Medicine; Visit Provider Internal Medicine Critical Care Medicine
DX: R05.3 Chronic cough (principal)
CPT/HCPCS: 71046

== ENCOUNTER → 2024-11-27 | Outpatient (CLI) | payer OTHER, SELFPAY ==
--- NOTE | 2024-11-27 18:26 | CT_ITS ---
PROCEDURE: CHEST WITHOUT CONTRAST 11/27/2024 REASON FOR EXAM: ILD HIGH RESOLUTION CUTS TECHNIQUE: Chest CT without contrast. Coronal and Sagittal reconstruction series were provided. One or more dose reduction techniques were used (e.g., Automated exposure control, adjustment of the mA and/or kV according to patient size, use of iterative reconstruction technique RADIATION DOSE SUMMARY: CTDlvol: 5.12 mGy DLP: 178.39 mGycm COMPARISON: None FINDINGS: Hardware: None. A tissue clip marker is seen within the right breast. Lymph nodes: No significant lymph nodes are seen. Heart and Vasculature: The heart is not enlarged. Coronary Artery Calcifications: Absent Lungs and Airways: Minimal increased linear markings in the anterior medial aspect of the right middle lobe suggestive of scarring. Minimal linear scarring in the anterior aspect of the lingula segment of the left upper lobe. No evidence of honeycombing. Pleura: No pleural effusion. Upper Abdomen: Unremarkable Bones: Degenerative changes of the thoracic spine. CT/Chest without Contrast IMPRESSION: Coronary artery calcification (CAC) is is absent Minimal medial aspect of the as well as in the lingular segment of the left upp er lobe. No evidence of honeycombing. Reading Location: [facility]
== END | disposition home or self-care (01) ==
LOC: CT 18:23
PROVIDERS: PCP Family Medicine; Referring Provider Nurse Practitioner Acute Care; Visit Provider Nurse Practitioner Acute Care
DX: J84.9 Interstitial pulmonary disease, unspecified (principal)
CPT/HCPCS: 71250